=== PATIENT | male | born 1955 | race American Indian/Alaskan Native ===

== ENCOUNTER 2016-05-20 08:34 | Emergency (ER) | payer MEDICAID ==
[2016-05-20 08:45] VITALS: BP 135/100; PULSE 73; RESP 20; TEMP 96.8; O2SAT 95
[2016-05-20] MEDS ORDERED: Albuterol-Ipratrop 3 mg / 0.5 (3 ml) UD IH STA ×2 (08:53→09:36)
--- NOTE | 2016-05-20 08:55 | ED PDOC ---
HPI: CCC, URI, Sore Throat Time Seen by Provider: 05/20/16 08:44 Chief Complaint (Nursing): Cough, Cold, Congestion Chief Complaint (Provider): Cough, Cold, Congestion History Per: Patient History/Exam Limitations: no limitations Onset/Duration Of Symptoms: Days Current Symptoms Are (Timing): Still Present Location Of Pain: None Sick Contacts (Context): None Associated Symptoms: Cough, Sputum. denies: Fever Ear Symptoms: Bilateral: None Severity: Mild Additional Complaint(s): Patient is a 60 year old male with a history of asthma, presents to ED for SOB for 3 days. Patient reports wheezing with a cough productive of yellow sputum. Notes he recently ran out of his inhaler and prednisone. Denies fever, chest pain, palpations, back pain or chills. Of note patient is also reporting right knee pain, atraumatic with no swelling. Past Medical History Reviewed: Historical Data, Nursing Documentation, Vital Signs Vital Signs: Last Vital Signs Temp 96.8 F L 05/20/16 08:38 Pulse 73 05/20/16 08:38 Resp 20 05/20/16 09:40 BP 135/100 H 05/20/16 08:38 Pulse Ox 95 05/20/16 08:57 - Medical History PMH: Asthma, CVA - Surgical History Surgical History: No Surg Hx - Family History Family History: States: No Known Family Hx - Living Arrangements Living Arrangements: With Family - Home Medications Home Medications: Ambulatory Orders Medication Instructions Recorded Albuterol HFA [Ventolin HFA 90 2 puff IH Q4H #1 puff 05/20/16 mcg/actuation (8 g)] Azithromycin [Zithromax] 250 mg PO DAILY #6 tab 05/20/16 predniSONE [predniSONE Tab] 10 mg PO TID #15 tab 05/20/16 traMADol [Ultram] 50 mg PO Q8 #10 tab 05/20/16 - Allergies Allergies/Adverse Reactions: Allergies Allergy/AdvReac Type Severity Reaction Status Date / Time No Known Allergies Allergy Verified 05/20/16 09:33 Review of Systems ROS Statement: Except As Marked, All Systems Reviewed And Found Negative Constitutional: Negative for: Fever, Chills ENT: Negative for: Ear Pain, Throat Pain Cardiovascular: Negative for: Chest Pain, Palpitations Respiratory: Positive for: Cough, Shortness of Breath, Wheezing Gastrointestinal: Negative for: Vomiting Musculoskeletal: Negative for: Neck Pain Skin: Negative for: Rash Physical Exam - Reviewed Nursing Documentation Reviewed: Yes Vital Signs Reviewed: Yes - Physical Exam Appears: Positive for: Non-toxic, No Acute Distress Skin: Positive for: Normal Color, Warm. Negative for: Rash Eye Exam: Positive for: Normal appearance ENT: Negative for: Nasal Congestion, Pharyngeal Erythema, Tonsillar Exudate Neck: Positive for: Normal, Painless ROM, Supple Cardiovascular/Chest: Positive for: Regular Rate, Rhythm, Chest Non Tender. Negative for: Murmur Respiratory: Positive for: Rhonchi (scattered), Wheezing (mild expiratory ). Negative for: Decreased Breath Sounds, Accessory Muscle Use, Respiratory Distress Back: Positive for: Normal Inspection Extremity: Positive for: Normal ROM. Negative for: Pedal Edema, Calf Tenderness Neurologic/Psych: Positive for: Alert, Oriented - ECG O2 Sat by Pulse Oximetry: 95 (RA) Pulse Ox Interpretation: Normal Medical Decision Making Medical Decision Making: Time: 0845 Initial impression: Asthma exacerbation vs viral illness Initial plan: -- CXR -- Duoneb and Prednisone -- Knee Xray Scribe Attestation: Documented by Zoë Agudelo acting as a scribe for Wojciech Shah MD MD Scribe Attestation: All medical record entries made by the Scribe were at my direction and personally dictated by me. I have reviewed the chart and agree that the record accurately reflects my personal performance of the history, physical exam, medical decision making, and the department course for this patient. I have also personally directed, reviewed, and agree with the discharge instructions and disposition. Disposition - Clinical Impression Clinical Impression: Bronchitis, Asthma - Patient ED Disposition Is Patient to be Admitted: No - Disposition Referrals: [facility] [Outside] Disposition: Routine/Home Disposition Time: 10:44 Condition: FAIR Prescriptions: traMADol [Ultram] 50 mg PO Q8 #10 tab Albuterol HFA [Ventolin HFA 90 mcg/actuation (8 g)] 2 puff IH Q4H #1 puff Azithromycin [Zithromax] 250 mg PO DAILY #6 tab predniSONE [predniSONE Tab] 10 mg PO TID #15 tab Instructions: Acute Bronchitis (ED), Asthma (ED)
[2016-05-20] MEDS ORDERED: Albuterol-Ipratrop 3 mg / 0.5 (3 ml) UD ONE (09:36)
--- NOTE | 2016-05-20 11:23 | RAD ---
HISTORY: Cough. Portable study 09:01. COMPARISON: No prior. FINDINGS: LUNGS: No active pulmonary disease. PLEURA: No significant pleural effusion identified, no pneumothorax apparent. CARDIOVASCULAR: No radiographic findings to suggest acute or significant cardiovascular disease. OSSEOUS STRUCTURES: No significant abnormalities. VISUALIZED UPPER ABDOMEN: Normal. OTHER FINDINGS: None. IMPRESSION: No active disease.
--- NOTE | 2016-05-20 11:24 | RAD ---
PROCEDURE: Right Knee Radiographs. HISTORY: pain COMPARISON: None. FINDINGS: BONES: Normal. No fracture. JOINTS: Normal. No osteoarthritis. JOINT EFFUSION: None. OTHER FINDINGS: None. IMPRESSION: No acute findings related to/accounting for the clinical presentation.
== END 2016-05-20 11:25 | disposition home or self-care (01) ==
LOC: H.ER 08:34
DX: J45.909 Unspecified asthma, uncomplicated (principal); J20.9 Acute bronchitis, unspecified; M25.561 Pain in right knee; R05 Cough; Z86.73 Personal history of transient ischemic attack (TIA), and cerebral infarction without residual deficits

== ENCOUNTER 2016-05-27 13:47 | Inpatient (IN) | payer MEDICAID ==
[2016-05-27] MEDS ORDERED: Albuterol-Ipratrop 3 mg / 0.5 (3 ml) UD INH STA (14:19)
[2016-05-27] MEDS ORDERED: Albuterol-Ipratrop 3 mg / 0.5 (3 ml) UD ONE (14:37)
--- NOTE | 2016-05-27 15:19 | ED PDOC ---
Past Medical History Vital Signs: Last Vital Signs Temp 100 F H 05/27/16 14:01 Pulse 77 05/27/16 14:01 Resp 20 05/27/16 14:01 BP 142/71 05/27/16 14:01 Pulse Ox 96 05/27/16 14:01 - Medical History PMH: Anxiety, Asthma, CVA, HTN, Hypercholesterolemia - Home Medications Home Medications: Ambulatory Orders Medication Instructions Recorded Albuterol HFA [Ventolin HFA 90 2 puff IH Q4H #1 puff 05/20/16 mcg/actuation (8 g)] Azithromycin [Zithromax] 250 mg PO DAILY #6 tab 05/20/16 predniSONE [predniSONE Tab] 10 mg PO TID #15 tab 05/20/16 traMADol [Ultram] 50 mg PO Q8 #10 tab 05/20/16 - Allergies Allergies/Adverse Reactions: Allergies Allergy/AdvReac Type Severity Reaction Status Date / Time No Known Allergies Allergy Verified 05/27/16 14:11 - ECG O2 Sat by Pulse Oximetry: 96
--- NOTE | 2016-05-27 16:04 | ED PDOC ---
HPI: CCC, URI, Sore Throat Time Seen by Provider: 05/27/16 13:55 Chief Complaint (Nursing): Cough, Cold, Congestion Chief Complaint (Provider): Cough, Cold, Congestion History Per: Patient History/Exam Limitations: no limitations Onset/Duration Of Symptoms: Days (a few days) Current Symptoms Are (Timing): Still Present Associated Symptoms: Fever (subjective), Cough, Sputum (yellow), Nasal Congestion, Other (Chest Tightness) Additional Complaint(s): 14:02 Immanuel Azul, 60 year old male with a past medical history of anxiety, asthma, HTN, and HLD, presents to the ED with complaints of a cough, productive with yellow sputum, that he has experienced over the past few days. Associated subjective fever, nasal congestion, and feelings of chest tightness also reported, further described as if he was being "smothered". Patient presents to the ED as he feels his symptoms have worsened since onset. Patient has used his usual 3 medically prescribed inhalers without improvement. He denies any abdomen pain, diarrhea, vomiting, chest pain, shortness of breath, or throat pain. The patient admits to a prior history of crack/cocaine/heroin abuse but has not used in the past 2 months. Patient also states that he has stopped cigarette use for the past 2 weeks, after smoking 2-3 cigarettes per day for about 20 years. Patient has not received this year's influenza vaccination. Past Medical History Reviewed: Historical Data, Nursing Documentation, Vital Signs Vital Signs: Last Vital Signs Temp 98.9 F 05/27/16 17:18 Pulse 77 05/27/16 14:01 Resp 20 05/27/16 14:01 BP 142/71 05/27/16 14:01 Pulse Ox 96 05/27/16 17:00 - Medical History PMH: Anxiety, Asthma, CVA, HTN, Hypercholesterolemia, Hyperlipidemia Other PMH: Treated for Cocaine/Crack/Heroin Addiction - Surgical History Surgical History: Denies: Coronary Stent Other surgeries: Cataract Surgery, Two cardiac catheterizations, Bronchoscopy - Family History Family History: States: MS (Mother), CAD (Mother), Other (Aunt with CHF) - Living Arrangements Living Arrangements: Other (Intermediate) - Social History Current smoker - smoking cessation education provided: Yes (Recently stopped smoking for the past 2 weeks) Drugs: Cocaine, Opiates (Heroin) - Immunization History Hx Influenza Vaccination: No - Home Medications Home Medications: Ambulatory Orders Medication Instructions Recorded Albuterol HFA [Ventolin HFA 90 2 puff IH Q4H #1 puff 05/20/16 mcg/actuation (8 g)] - Allergies Allergies/Adverse Reactions: Allergies Allergy/AdvReac Type Severity Reaction Status Date / Time No Known Allergies Allergy Verified 05/27/16 14:11 Review of Systems Constitutional: Positive for: Fever (Subjective) ENT: Positive for: Nose Congestion. Negative for: Throat Pain Cardiovascular: Positive for: Other (Chest Tightness). Negative for: Chest Pain Respiratory: Positive for: Cough, Sputum (Yellow). Negative for: Shortness of Breath Gastrointestinal: Negative for: Vomiting, Abdominal Pain, Diarrhea Psych: Positive for: Anxiety Physical Exam - Reviewed Nursing Documentation Reviewed: Yes Vital Signs Reviewed: Yes - Physical Exam Appears: Positive for: Non-toxic, No Acute Distress Head Exam: Positive for: ATRAUMATIC, NORMOCEPHALIC Skin: Positive for: Normal Color, Warm, Dry Eye Exam: Positive for: Normal appearance, EOMI, PERRL ENT: Positive for: Normal ENT Inspection. Negative for: Pharyngeal Erythema, Tonsillar Exudate, Tonsillar Swelling Neck: Positive for: Normal, Supple Cardiovascular/Chest: Positive for: Regular Rate, Rhythm. Negative for: Murmur Respiratory: Positive for: Wheezing (Bilateral expiratory wheezing), Other ( Transmitted Nasal Breath Sounds over Bronchial Area). Negative for: Respiratory Distress Neurologic/Psych: Positive for: Alert, Oriented - Laboratory Results Result Diagrams: 05/27/16 16:04 05/27/16 16:04 - ECG O2 Sat by Pulse Oximetry: 96 (RA) Pulse Ox Interpretation: Normal Medical Decision Making Medical Decision Makin:02 Initial Impression Cough, URI Initial Plan: * ECG * B-type Natriuretic Peptide * Comp Metabolic Panel * Troponin I Stat * CBC with Differential * Partial Thromboplastin Time * Prothrombin Time (Coag) * CXR two views (PA/LAT) RAD * Influenza A B Stat * Blood Culture Stat * Finger Stick [Glucose, Blood, POC] * Albuterol/Ipratropium 3 mL INH * Nebulizer Treatment * Peak Flow Pre/Post Tx * Methylpredisolone 125 mg IM * Acetaminophen 650 mg PO * Reevaluation Pt noted to have Hgb 7.3. when asked if symptomatic, Pt does report feeling lightheaded and weak lately, which he attributed to being sick. No rectal bleeding that he knows of. Stool guaiac done, no blood noted on glove. WBC 12.9 Potassium resulted 5.3, however specimen hemolized BUN elevated at 26 CXR: No active pulmonary disease. COPD. Case discussed with ED MD, Dr. Perez, who agreed with observation. Call placed and case discussed with med -[facility] physician, Dr. Moreno, who agreed with admission at this time. Scribe Attestation: Documented by Yuliana Ridley, training under Megan Ernandez, acting as a scribe for Margie Rodriguez PA-C. Provider Scribe Attestation: All medical record entries made by the Scribe were at my direction and personally dictated by me. I have reviewed the chart and agree that the record accurately reflects my personal performance of the history, physical exam, medical decision making, and the department course for this patient. I have also personally directed, reviewed, and agree with the discharge instructions and disposition. Disposition - Clinical Impression Clinical Impression: Anemia, Cough, Fever - Patient ED Disposition Is Patient to be Admitted: Yes - Disposition Disposition Time: 17:46 Condition: STABLE - POA Present On Arrival: None
[2016-05-27 16:15] LABS: BASO # 0.1 K/uL (0.0-0.2); BASO % 0.8 % (0.0-2.0); EOS # 0.5 K/uL (0.0-0.7); EOS % 3.7 % (0.0-4.0); HEMATOCRIT 24.1 % (35.0-51.0); LYMPH # 4.4 K/uL (1.0-4.3); LYMPH % 34.2 % (20.0-40.0); MEAN CELL VOLUME 70.2 fl (80.0-94.0); MEAN CORPUSCULAR HEMOGLOBIN 21.3 pg (27.0-31.0); MEAN CORPUSCULAR HGB CONC 30.3 g/dL (33.0-37.0); MEAN PLATELET VOLUME 7.7 fl (7.2-11.7); MONO # 1.2 K/uL (0.0-0.8); MONO % 8.9 % (0.0-10.0); NEUT # 6.8 K/uL (1.8-7.0); NEUT % 52.4 % (50.0-75.0); NRBC % 0.1 % (0.0-0.0); RED CELL DISTRIBUTION WIDTH 24.9 % (11.5-14.5); WHITE BLOOD COUNT 12.9 K/uL (4.8-10.8)
[2016-05-27 16:24] LABS: ALB/GLOB RATIO 0.9 (1.0-2.1); ALKALINE PHOSPHATASE 45 U/L (38-126); ALT/SGPT 35 U/L (21-72); AST/SGOT 44 U/L (17-59); BILIRUBIN,TOTAL 0.8 mg/dl (0.2-1.3); BLOOD UREA NITROGEN 26 mg/dl (9-20); CALCIUM 8.7 mg/dL (8.4-10.2); CARBON DIOXIDE 28 mmol/L (22-30); CHLORIDE 101 mmol/L (98-107); GFR AFRICAN-AMERICAN > 60; GLUCOSE,RANDOM 86 mg/dL (75-110); SODIUM 142 mmol/l (132-148); TOTAL PROTEIN 7.2 G/DL (6.3-8.2)
[2016-05-27 16:32] LABS: POTASSIUM 5.3 MMOL/L (3.6-5.0)
--- NOTE | 2016-05-27 16:59 | RAD ---
HISTORY: Fever and cough COMPARISON: 05/20/2016 TECHNIQUE: Chest PA and lateral FINDINGS: LUNGS: The lungs are hyperinflated and there is peribronchial thickening with chronic changes in both lungs. There is linear scarring in the left mid lung and right lower lobe. There is no focal consolidation. PLEURA: No significant pleural effusion identified. No pneumothorax apparent. CARDIOVASCULAR: The heart is normal in size. Atherosclerotic aortic arch calcifications are present. OSSEOUS STRUCTURES: No significant abnormalities. VISUALIZED UPPER ABDOMEN: Normal. OTHER FINDINGS: None. IMPRESSION: No active pulmonary disease. COPD.
[2016-05-27] MEDS ORDERED: Azithromycin 500 MG in Sodium Chloride 0.9% 250 ML IVPB STA (17:36)
[2016-05-27] MEDS ORDERED: Sodium Chloride 0.9% 1,000 ML IV STA (17:43)
[2016-05-27 19:08] LABS: IRON 16 ug/dL (49-181)
[2016-05-27] MEDS ORDERED: cefTRIAXone (Rocephin) 1 gm Inj ONE (20:00)
[2016-05-27 22:36] LABS: PARTIAL THROMBOPLASTIN TIME 29.1 SECONDS (23.3-32.5)
[2016-05-28] MEDS: methylPREDNISolone 60 MG in Sodium Chloride 0.9% 50 ML IV SCH ×4 (03:24→23:31)
[2016-05-28 07:37] LABS: HEMATOCRIT 26.3 % (35.0-51.0); MEAN CELL VOLUME 69.3 fl (80.0-94.0); MEAN CORPUSCULAR HEMOGLOBIN 21.5 pg (27.0-31.0); RED CELL DISTRIBUTION WIDTH 24.8 % (11.5-14.5); WHITE BLOOD COUNT 11.3 K/uL (4.8-10.8)
--- NOTE | 2016-05-28 08:29 | CP.PCM.CON ---
History of Present Illness - History of Present Illness History of Present Illness: Asked by Dr. Moreno for a GI consultation on this patient. 60 year old male with history of polysubstance abuse, COPD, anxiety, HTN who presents to hospital with complaint of productive cough for the past 3 days. He describes cough and chest "tightness" along with bringing up yellow sputum during this time period. GI called for evaluation of anemia noted on admission bloodwork. He endorses history of chronic anemia, previously used to take iron supplementation. He admits to recent lightheadedness/dizziness but denies abdominal pain, nausea, vomiting, diarrhea, melena, or weight loss. No prior endoscopic evaluation. Social history: smokes 1/4 PPD cigarettes, social ETOH use, prior cocaine and illicit drug use Family history: reviewed, patient denies Review of Systems - Review of Systems Review of Systems: - All other comprehensive 12 point review of systems performed, negative - Cardiovascular Cardiovascular: absent: Acrocyanosis, Chest Pain, Chest Pain at Rest, Chest Pain with Activity, Claudication, Diaphoresis, Dyspnea, Dyspnea on Exertion, Edema, Irregular Heart Rhythm, Pain Radiating to Arm/Neck/Jaw, Leg Edema, Leg Ulcers, Lightheadedness, Orthopnea, Palpitations, Paroxysmal Nocturnal Dyspnea, Pedal Edema, Radiating Pain, Rapid Heart Rate, Slow Heart Rate, Syncope, Other - Respiratory Respiratory: Cough, Excessive Mucous Production - Gastrointestinal Gastrointestinal: absent: Abdominal Pain, Belching, Bloating, Change in Bowel Habits, Change in Stool Character, Coffee Ground Emesis, Constipation, Cramping , Diarrhea, Dyspepsia, Dysphagia, Early Satiety, Excessive Flatus, Fecal Incontinence, Heartburn, Hematemesis, Hematochezia, Loose Stools, Melena, Nausea , Odynophagia, Temesmus, Vomiting, Other - Musculoskeletal Musculoskeletal: absent: Abnormal Gait, Arthralgias, Atrophy, Back Pain, Deformity, Joint Swelling, Limited Range of Motion, Loss of Height, Muscle Cramps, Muscle Weakness, Myalgias, Neck Pain, Numbness, Radiating Pain into Limb , Stiffness, Tingling, Other - Neurological Neurological: Dizziness Past Patient History - Past Medical History & Family History Past Medical History?: Yes - Past Social History Smoking Status: Light Smoker < 10 Cigarettes Daily - CARDIAC Hx Cardiac Disorders: Yes Hx Hypercholesterolemia: Yes Hx Hypertension: Yes - PULMONARY Hx Respiratory Disorders: Yes Hx Asthma: Yes - NEUROLOGICAL Hx Dizziness: Yes - RENAL Hx Chronic Kidney Disease: No - ENDOCRINE/METABOLIC Hx Endocrine Disorders: No - HEMATOLOGICAL/ONCOLOGICAL Hx Anemia: Yes - MUSCULOSKELETAL/RHEUMATOLOGICAL Hx Falls: No - PSYCHIATRIC Hx Psychophysiologic Disorder: Yes Hx Anxiety: Yes - SURGICAL HISTORY Hx Cataract Extraction: Yes Hx Cardiac Catheterization: Yes Hx Coronary Stent: No - ANESTHESIA Hx Anesthesia: Yes Hx Anesthesia Reactions: No Meds Allergies/Adverse Reactions: Allergies Allergy/AdvReac Type Severity Reaction Status Date / Time No Known Allergies Allergy Verified 05/27/16 14:11 - Medications Medications: Current Medications Acetaminophen (Tylenol 325mg Tab) 650 mg PO Q6 PRN PRN Reason: Fever >100.4 F Albuterol (Ventolin Hfa 90 Mcg/Actuation (8 G)) 2 puff IH Q4H PRN PRN Reason: Shortness of Breath Amlodipine Besylate (Norvasc) 5 mg PO DAILY [facility] Last Admin: 05/28/16 01:21 Dose: 5 mg Bisacodyl (Dulcolax) 5 mg PO ONCE ONE Stop: 05/28/16 16:01 Enoxaparin Sodium (Lovenox) 40 mg SC DAILY [facility] PRN Reason: Protocol Ceftriaxone Sodium 1 gm/ (Sodium Chloride) 100 mls @ 100 mls/hr IVPB DAILY [facility] Last Admin: 05/27/16 20:25 Dose: 100 mls/hr Azithromycin 500 mg/ Sodium (Chloride) 250 mls @ 250 mls/hr IVPB DAILY [facility] Methylprednisolone 60 mg/ (Sodium Chloride) 50 mls @ 100 mls/hr IV Q6 [facility] Last Admin: 05/28/16 03:24 Dose: 100 mls/hr Polyethylene Glycol/Electrolytes (Golytely) 4,000 ml PO ONCE ONE Stop: 05/28/16 14:01 Valsartan (Diovan) 80 mg PO DAILY [facility] Physical Exam - Constitutional Appears: Non-toxic, No Acute Distress - Head Exam Head Exam: NORMAL INSPECTION - Eye Exam Eye Exam: EOMI, Normal appearance - ENT Exam ENT Exam: Mucous Membranes Moist - Respiratory Exam Respiratory Exam: Wheezes Additional comments: inspiratory b/l lung [place]عر[place] - Cardiovascular Exam Cardiovascular Exam: REGULAR RHYTHM, +S1, +S2 - GI/Abdominal Exam GI & Abdominal Exam: Normal Bowel Sounds, Soft Additional comments: non tender to palpation in four quadrants no palpable hepato/splenomegaly - Extremities Exam Extremities exam: Positive for: pedal edema Additional comments: trace b/l pedal edema present - Neurological Exam Neurological exam: Alert, CN II-XII Intact, Normal Gait, Oriented x3, Reflexes Normal - Psychiatric Exam Psychiatric exam: Normal Affect, Normal Mood - Skin Skin Exam: Dry, Intact, Normal Color, Warm Results - Vital Signs Recent Vital Signs: Last Vital Signs Temp 97.6 F 05/28/16 08:04 Pulse 87 05/28/16 08:04 Resp 18 05/28/16 08:04 BP 169/76 H 05/28/16 08:04 Pulse Ox 97 05/28/16 08:04 - Labs Result Diagrams: 05/28/16 05:25 05/27/16 16:04 Labs: Laboratory Results - last 24 hr 05/27/16 05/28/16 22:05 05:25 WBC 11.3 H RBC 3.80 L Hgb 8.2 L Hct 26.3 L MCV 69.3 L MCH 21.5 L MCHC 31.0 L RDW 24.8 H Plt Count 335 PT 10.9 INR 1.05 APTT 29.1 Assessment & Plan - Assessment and Plan (Free Text) Assessment: History of polysubstance abuse HTN Productive cough, COPD exacerbation Iron deficiency microcytic anemia Plan: - Clear liquid diet as tolerated - H/H stable, continue to monitor. Obtain stool occult blood. - Continue with antibiotic therapy as per medical team - Given microcytic iron deficiency anemia in patient with ongoing history of cigarette smoking and without any prior endoscopic evaluation, will plan for EGD /colonoscopy examinations tomorrow to rule out underlying malignancy. Golytely bowel preparation today, NPO after midnight. - Further management pending results of endoscopic evaluation
[2016-05-28] MEDS ORDERED: cefTRIAXone (Rocephin) 2 gm Inj IVPB SCH (09:00)
[2016-05-28] MEDS: Azithromycin 500 MG in Sodium Chloride 0.9% 250 ML IVPB SCH (10:36)
--- NOTE | 2016-05-28 11:06 | HP ---
CHIEF COMPLAINT: Cough, cold, and congestion. HISTORY OF PRESENT ILLNESS: This is a 60-year-old male, known case of hypertension, asthma, anxiety, hyperlipidemia who was having cough with productive sputum, which did not improve with patient's inh ángel, so the patient was brought to Emergency Room where after workup, the patient was found to be a nemic and was admitted for further management. REVIEW OF SYSTEMS: Positive for cough, cold, congestion, generalized weakness, fever, malaise. Revi ew of system otherwise is negative for headache, dizziness, syncope, loss of consciousness, chest sandy n, nausea, vomiting, diarrhea, constipation, any new joint or extremity pain. Review of systems of a ll other organ systems is unremarkable. PAST MEDICAL HISTORY: Significant for hypertension, elevated cholesterol, anxiety, asthma. PAST SURGICAL HISTORY: Unremarkable. PERSONAL HISTORY: The patient has history of drug abuse and alcohol abuse and smoking. in the past, but recently patient has quit all those. FAMILY HISTORY: Significant for coronary artery disease. MEDICATIONS: The patient is on inhalation treatment ____ . ALLERGIES: The patient is not allergic to any medication. PHYSICAL EXAMINATION: GENERAL: Well-built, well-nourished 60-year-old male in no acute distress. VITAL SIGNS: Temperature 97.6, pulse 72, respirations 20, blood pressure 172/87. HEENT: Pupils reacting to light. The patient is clear pale conjunctivae. No JVD, no thyromegaly, n o lymphadenopathy, no nystagmus. Normocephalic, atraumatic skull. HEART: S1, S2 normal, regular. No significant murmur, gallop or rub is heard. LUNGS: Shows good bilateral air entry. No rales or rhonchi anteriorly. The patient does show signs of prolonged expiration and occasional palpitations posteriorly. ABDOMEN: Soft, nontender, no organomegaly, no fluid. Bowel sounds are plus. EXTREMITIES: No edema, no calf swelling, no tenderness, no acute ischemia. CENTRAL NERVOUS SYSTEM: Essentially unchanged and there is no sign of any acute gross focal motor or sensory neurological deficit. DIAGNOSTIC DATA: Available diagnostic data reviewed. Telemetry monitoring does not reveal significa nt arrhythmias. WBC 12.9, hemoglobin 7.3, hematocrit 24.1, platelets 286, ____ count is 2.6. INR a nd PT unremarkable. Sodium 142, potassium ____ , chloride 101, bicarb 28, BUN 26, creatinine 1.0 and ____ is 16. ____ 321, saturation is 5%. Vitamin B12 level is 704. Chest x-ray is clear. EKG does not reveal any acute ST-T changes. ADMITTING IMPRESSION: Chronic obstructive pulmonary disease with acute exacerbation, severe anemia, hypertension, elevated cholesterol by history. PLAN: As ordered. Case and plan discussed with patient. Hieu Moreno MD cc: [id number] TT: 05/28/2016 11:06:06 an
--- NOTE | 2016-05-28 11:24 | CP.PCM.CON ---
History of Present Illness - History of Present Illness History of Present Illness: 60 year old male with history of polysubstance abuse, tobacco abuse, COPD, admitted with cough, shortness of breath, found to be anemic. The patient denies abnormal bleeding and bruising. He had a colonoscopy 2 years ago but is unsure what the results are. He denies fevers and chills but notes the long term he stays at has a lot of sick people. Past medical history: polysubstance abuse, tobacco abuse, COPD Past surgical history: None Family history: Denies hematologic and oncologic problems Social history: 1/2ppd, denies alcohol use, smokes crack and snorts heroin Allergies: NKA Review of systems: All remaining review of systems including HEENT, cardiovascular, respiratory, gastrointestinal, genitourinary, musculoskeletal, dermatologic, neurologic, and psychiatric are negative unless mentioned in the HPI. Past Patient History - Past Medical History & Family History Past Medical History?: Yes - Past Social History Smoking Status: Light Smoker < 10 Cigarettes Daily - CARDIAC Hx Cardiac Disorders: Yes Hx Hypercholesterolemia: Yes Hx Hypertension: Yes - PULMONARY Hx Respiratory Disorders: Yes Hx Asthma: Yes - NEUROLOGICAL Hx Dizziness: Yes - RENAL Hx Chronic Kidney Disease: No - ENDOCRINE/METABOLIC Hx Endocrine Disorders: No - HEMATOLOGICAL/ONCOLOGICAL Hx Anemia: Yes - MUSCULOSKELETAL/RHEUMATOLOGICAL Hx Falls: No - PSYCHIATRIC Hx Psychophysiologic Disorder: Yes Hx Anxiety: Yes - SURGICAL HISTORY Hx Cataract Extraction: Yes Hx Cardiac Catheterization: Yes Hx Coronary Stent: No - ANESTHESIA Hx Anesthesia: Yes Hx Anesthesia Reactions: No Meds Allergies/Adverse Reactions: Allergies Allergy/AdvReac Type Severity Reaction Status Date / Time No Known Allergies Allergy Verified 05/27/16 14:11 - Medications Medications: Current Medications Acetaminophen (Tylenol 325mg Tab) 650 mg PO Q6 PRN PRN Reason: Fever >100.4 F Albuterol (Ventolin Hfa 90 Mcg/Actuation (8 G)) 2 puff IH Q4H PRN PRN Reason: Shortness of Breath Amlodipine Besylate (Norvasc) 5 mg PO DAILY [facility] Last Admin: 05/28/16 09:22 Dose: 5 mg Bisacodyl (Dulcolax) 5 mg PO ONCE ONE Stop: 05/28/16 16:01 Enoxaparin Sodium (Lovenox) 40 mg SC DAILY [facility] PRN Reason: Protocol Ceftriaxone Sodium 1 gm/ (Sodium Chloride) 100 mls @ 100 mls/hr IVPB DAILY [facility] Last Admin: 05/27/16 20:25 Dose: 100 mls/hr Azithromycin 500 mg/ Sodium (Chloride) 250 mls @ 250 mls/hr IVPB DAILY [facility] Last Admin: 05/28/16 10:36 Dose: 250 mls/hr Methylprednisolone 60 mg/ (Sodium Chloride) 50 mls @ 100 mls/hr IV Q6 [facility] Last Admin: 05/28/16 09:23 Dose: 100 mls/hr Iron Sucrose 200 mg/ Sodium (Chloride) 110 mls @ 110 mls/hr IVPB DAILY [facility] Stop: 06/02/16 11:31 Polyethylene Glycol/Electrolytes (Golytely) 4,000 ml PO ONCE ONE Stop: 05/28/16 14:01 Valsartan (Diovan) 80 mg PO DAILY [facility] Last Admin: 05/28/16 09:21 Dose: 80 mg Physical Exam - Head Exam Head Exam: ATRAUMATIC - Eye Exam Eye Exam: Normal appearance - ENT Exam ENT Exam: Mucous Membranes Dry - Respiratory Exam Respiratory Exam: NORMAL BREATHING PATTERN - Cardiovascular Exam Cardiovascular Exam: +S1, +S2 - GI/Abdominal Exam GI & Abdominal Exam: Normal Bowel Sounds - Extremities Exam Extremities exam: Positive for: normal inspection - Neurological Exam Neurological exam: Oriented x3 - Psychiatric Exam Psychiatric exam: Normal Affect, Normal Mood - Skin Skin Exam: Warm Results - Vital Signs Recent Vital Signs: Last Vital Signs Temp 97.6 F 05/28/16 08:04 Pulse 87 05/28/16 09:22 Resp 18 05/28/16 08:04 BP 169/76 H 05/28/16 09:22 Pulse Ox 97 05/28/16 08:04 - Labs Result Diagrams: 05/28/16 05:25 05/27/16 16:04 Labs: Laboratory Results - last 24 hr 05/27/16 05/28/16 22:05 05:25 WBC 11.3 H RBC 3.80 L Hgb 8.2 L Hct 26.3 L MCV 69.3 L MCH 21.5 L MCHC 31.0 L RDW 24.8 H Plt Count 335 PT 10.9 INR 1.05 APTT 29.1 Assessment & Plan (1) Anemia Assessment and Plan: iron deficiency, will start Venofer GI evaluation for endoscopy Status: Acute (2) Tobacco abuse Assessment and Plan: smoking cessation discussed at length Thank you for this interesting consult. Status: Acute
[2016-05-28] MEDS: Enoxaparin 40 mg Syringe SC SCH (12:36)
[2016-05-28] MEDS ORDERED: Peg-Electrolyte Oral Soln 4L (Golytely) PO ONE (14:00)
[2016-05-28] MEDS ORDERED: Bisacodyl 5mg EC Tab PO ONE (16:00)
[2016-05-28] MEDS: Albuterol-Ipratrop 3 mg / 0.5 (3 ml) UD INH SCH ×2 (16:43→19:29)
[2016-05-29] MEDS: Albuterol HFA 90 mcg/actuation (8 g) IH PRN ×2 (00:08→11:21)
[2016-05-29] MEDS: Albuterol-Ipratrop 3 mg / 0.5 (3 ml) UD INH SCH ×4 (01:27→19:41)
[2016-05-29] MEDS: methylPREDNISolone 60 MG in Sodium Chloride 0.9% 50 ML IV SCH ×4 (03:15→21:38)
[2016-05-29 07:49] LABS: HEMATOCRIT 25.6 % (35.0-51.0); MEAN CORPUSCULAR HEMOGLOBIN 20.7 pg (27.0-31.0); RED CELL DISTRIBUTION WIDTH 24.4 % (11.5-14.5)
[2016-05-29 07:53] LABS: ALB/GLOB RATIO 0.9 (1.0-2.1); ALKALINE PHOSPHATASE 54 U/L (38-126); ALT/SGPT 25 U/L (21-72); AST/SGOT 23 U/L (17-59); BILIRUBIN,TOTAL 0.3 mg/dl (0.2-1.3); BLOOD UREA NITROGEN 25 mg/dl (9-20); CALCIUM 8.7 mg/dL (8.4-10.2); CARBON DIOXIDE 29 mmol/L (22-30); CHLORIDE 102 mmol/L (98-107); GFR AFRICAN-AMERICAN > 60; GLUCOSE,RANDOM 124 mg/dL (75-110); POTASSIUM 3.7 MMOL/L (3.6-5.0); SODIUM 143 mmol/l (132-148); TOTAL PROTEIN 6.7 G/DL (6.3-8.2)
--- NOTE | 2016-05-29 07:58 | PQF GENQUE ---
This form is a permanent part of the medical record 05/29/16 , Please clarify the type of asthma along with it's acuity. See physician response below. Documentation of a history of asthma .Patient presents with fever, productive cough, chest tightness, congestion and wheezing. CXR no active disease. Treated with Solumedrol, Duonebs, IVAB and Ventolin Hfa. Diagnoses include COPD exacerbation and Anemia. Clarification of your documentation is requested to better reflect the severity of illness and intensity of treatment of your patient. PHYSICIAN'S RESPONSE 1. Please clarify type of asthma: [ ] Childhood [ ] Cough variant [ ] Exercise induced [ ] Late onset [ ] Mild intermittent [ ] Mild persistent [ ] Moderate persistent [ ] Severe persistent [ ] With bronchitis(please clarify acuity of bronchitis) [ ] With chronic lung disease (please document specific chronic lung disease ) [ ] Other (please specify) [ ] Unable to determine [ ] Unknown 2. Please clarify acuity of asthma: [ ] Uncomplicated [ ] With exacerbation(acute) [ ] With status asthmaticus [ ] Other (please specify) [ ] Unable to determine [ ] Unknown Based on your medical judgment of the clinical indicators outlined above please clarify the following: [] Practitioner response [] If unable to determine, please check the box, sign and date. Present On Admission (POA) Indicator: [] Present at the time of admission [] Not present at the time of admission [] Clinically Undetermined In responding to this query, please exercise your independent professional judgment. The fact that a question is asked does not imply that any particular answer is desired or expected. Thank you for your clarification on this documentation. If you have any questions please call:[phone] Medical Records Dept * Thank you, Eryn Mcwilliams RN CDMP MTDD
[2016-05-29 08:09] LABS: WHITE BLOOD COUNT 24.4 K/uL (4.8-10.8)
[2016-05-29] MEDS ORDERED: Lactated Ringer's 500 ML IV ONE ×2 (09:30→13:38)
[2016-05-29] MEDS ORDERED: Propofol 10 mg/ml Inj (20 ML) ONE ×2 (09:32→13:37)
[2016-05-29] MEDS: Azithromycin 500 MG in Sodium Chloride 0.9% 250 ML IVPB SCH (10:10)
--- NOTE | 2016-05-29 10:51 | CARD ---
APPROVED REPORT EKG Measurement Heart [id number] OR [id number] <Conclusion> Normal sinus rhythm with sinus arrhythmia Left ventricular hypertrophy with QRS widening and repolarization abnormality Abnormal ECG
[2016-05-29] MEDS ORDERED: Etomidate 20 mg/10ml Inj IV ONE (13:37)
[2016-05-30] MEDS: Albuterol-Ipratrop 3 mg / 0.5 (3 ml) UD INH SCH ×5 (01:23→21:00)
[2016-05-30] MEDS: methylPREDNISolone 60 MG in Sodium Chloride 0.9% 50 ML IV SCH ×4 (03:18→22:00)
[2016-05-30 07:23] LABS: HEMATOCRIT 24.5 % (35.0-51.0); MEAN CORPUSCULAR HEMOGLOBIN 21.4 pg (27.0-31.0); RED CELL DISTRIBUTION WIDTH 24.5 % (11.5-14.5); WHITE BLOOD COUNT 19.6 K/uL (4.8-10.8)
[2016-05-30 07:51] LABS: ALB/GLOB RATIO 0.8 (1.0-2.1); ALKALINE PHOSPHATASE 49 U/L (38-126); ALT/SGPT 27 U/L (21-72); AST/SGOT 25 U/L (17-59); BILIRUBIN,TOTAL 0.2 mg/dl (0.2-1.3); BLOOD UREA NITROGEN 34 mg/dl (9-20); CALCIUM 8.8 mg/dL (8.4-10.2); CARBON DIOXIDE 27 mmol/L (22-30); CHLORIDE 104 mmol/L (98-107); GFR AFRICAN-AMERICAN > 60; GLUCOSE,RANDOM 133 mg/dL (75-110); POTASSIUM 3.9 MMOL/L (3.6-5.0); SODIUM 142 mmol/l (132-148); TOTAL PROTEIN 6.4 G/DL (6.3-8.2)
[2016-05-30] MEDS: Azithromycin 500 MG in Sodium Chloride 0.9% 250 ML IVPB SCH ×2 (09:31→10:47)
--- NOTE | 2016-05-30 10:21 | CP.PCM.PN ---
<Ladan Mcnally - Last Filed: 05/30/16 14:16> Subjective - Date & Time of Evaluation Date of Evaluation: 05/30/16 Time of Evaluation: 07:15 - Subjective Subjective: 60M seen and examined at bedside this morning with attending. He reports breathing has improved a little, but still some residual productive cough. Otherwise there are no acute complaints. Objective - Vital Signs/Intake and Output Vital Signs (last 24 hours): Temp Pulse Resp BP Pulse Ox 36.8 C 68 18 177/79 H 96 05/30/16 08:12 05/30/16 08:12 05/30/16 08:12 05/30/16 08:12 05/30/16 08:12 - Medications Medications: Current Medications Acetaminophen (Tylenol 325mg Tab) 650 mg PO Q6 PRN PRN Reason: Fever >100.4 F Albuterol (Ventolin Hfa 90 Mcg/Actuation (8 G)) 2 puff IH Q4H PRN PRN Reason: Shortness of Breath Last Admin: 05/29/16 11:21 Dose: 2 puff Albuterol/Ipratropium (Duoneb 3 Mg/0.5 Mg (3 Ml) Ud) 3 ml INH RQ6 [facility] Last Admin: 05/30/16 07:48 Dose: 3 ml Amlodipine Besylate (Norvasc) 10 mg PO DAILY [facility] Last Admin: 05/30/16 09:32 Dose: 10 mg Enoxaparin Sodium (Lovenox) 40 mg SC DAILY [facility] PRN Reason: Protocol Last Admin: 05/28/16 12:36 Dose: 40 mg Hydrochlorothiazide (Microzide) 12.5 mg PO DAILY [facility] Methylprednisolone 60 mg/ (Sodium Chloride) 50 mls @ 100 mls/hr IV Q6 [facility] Last Admin: 05/30/16 09:30 Dose: 50 mls/hr Iron Sucrose 200 mg/ Sodium (Chloride) 110 mls @ 110 mls/hr IVPB DAILY [facility] Stop: 06/02/16 11:31 Last Admin: 05/29/16 12:53 Dose: 110 mls/hr Levofloxacin/Dextrose (Levaquin 750mg) 750 mg in 150 mls @ 100 mls/hr IVPB DAILY [facility] Tiotropium [place] (Spiriva) 18 mcg INH DAILY [facility] Valsartan (Diovan) 80 mg PO DAILY [facility] Last Admin: 05/30/16 09:32 Dose: 80 mg - Labs Labs: 05/30/16 05:05 05/30/16 05:05 PT 10.9 SECONDS (9.6-11.2) 05/27/16 22:05 INR 1.05 (0.92-1.08) 05/27/16 22:05 APTT 29.1 SECONDS (23.3-32.5) 05/27/16 22:05 - Constitutional Appears: Well, Non-toxic, No Acute Distress - Head Exam Head Exam: ATRAUMATIC, NORMAL INSPECTION - Eye Exam Eye Exam: EOMI, Normal appearance - ENT Exam ENT Exam: Mucous Membranes Moist, Normal Exam - Neck Exam Neck Exam: Full ROM, Normal Inspection - Respiratory Exam Respiratory Exam: Prolonged Expiratory Phase, Rhonchi, Wheezes, NORMAL BREATHING PATTERN. absent: Rales - Cardiovascular Exam Cardiovascular Exam: REGULAR RHYTHM. absent: JVD - GI/Abdominal Exam GI & Abdominal Exam: Soft, Normal Bowel Sounds. absent: Tenderness - Extremities Exam Extremities Exam: Normal Capillary Refill, Normal Inspection. absent: Pedal Edema - Neurological Exam Neurological Exam: Alert, Awake, Oriented x3 - Psychiatric Exam Psychiatric exam: Normal Affect, Normal Mood. absent: Anxious - Skin Skin Exam: Normal Color, Warm Assessment and Plan (1) COPD (chronic obstructive pulmonary disease) Assessment & Plan: Patient with history of asthma, smoking, and now presenting with increased sputum production, shortness of breath, and chills most c/w CPOD exacerbation complicated by CAP. Steroids contributing to leukocytosis seen in lab results as patient remains afebrile. - Ventolin 2puffs, IH, Q4H PRN - DuoNebs, INH, Q6H - Spiriva 18mcg, INH, Daily - Methylprednisone 60mg, IV, Q6H - Levaquin 750mg, IV, Daily - Repeat CXR in AM Status: Acute (2) DVT prophylaxis Assessment & Plan: Lovenox 40mg, SC, Daily Status: Acute (3) Microcytic anemia Assessment & Plan: Asymptomatic, iron-deficiency anemia. This is likely chronic and due to dietary vs. absorption dysfunction (not supported by remaining labwork) and no support ofr an acute blood loss anemia. In addition, upper and lower endoscopy 05/29/16 only significant for gastritis. - GI consult (Dr Armendariz)appreciated: Colonoscopy- no stigmata of bleeding/ diverticulosis/internal hemorrhoids; Endoscopy- small hiatus, gastritis, bx - Heme/Onc Consult (Dr Heller) appreciated: Rec Venofer, daily - Venofer 200mg, IV, Daily Status: Acute (4) HTN (hypertension) Assessment & Plan: Not well-controlled currently, so hydrochlorothiazide was added. Given that BUN became elevated will monitor closely for continuation of Valsartan. - Valsartan 80mg, PO, Daily - Norvasc 10mg, PO, Daily - HCTZ 12.5mg, PO, Daily - Monitor BP Status: Chronic (5) Anxiety Assessment & Plan: Seems well-controlled at this time without medication. Status: Chronic (6) HLD (hyperlipidemia) Assessment & Plan: Not currently taking any statin. Patient to follow up for further evaluation. Status: Chronic (7) History of asthma Assessment & Plan: Although patient may have a history of asthma (unknown type) with his symptoms, smoking history, and CXR findings this is most consistent with a COPD exacerbation. Status: Chronic <Hieu Moreno - Last Filed: 06/09/16 18:15> Objective - Vital Signs/Intake and Output Vital Signs (last 24 hours): Temp Pulse Resp BP Pulse Ox 97.8 F 86 18 158/76 H 95 06/01/16 12:13 06/01/16 14:16 06/01/16 12:13 06/01/16 14:16 06/01/16 12:13 - Labs Labs: 05/31/16 05:25 05/31/16 05:25 PT 10.9 SECONDS (9.6-11.2) 05/27/16 22:05 INR 1.05 (0.92-1.08) 05/27/16 22:05 APTT 29.1 SECONDS (23.3-32.5) 05/27/16 22:05 Assessment and Plan - Assessment and Plan (Free Text) Assessment: Patient was personally seen and examined by me in rounds with residents. Available labs and diagnostic data reviewed. Case, Patient's condition and management plan discussed with residents in rounds. Agree with resident's documentation. Plan: As ordered. Hieu Moreno MD
--- NOTE | 2016-05-30 14:45 | PN ---
DATE: 05/29/2016 The patient seen and examined. Interim events noted. The patient remains in progressive care unit o n telemetry monitoring but no chest pain, shortness of breath. ____ chest pain, ____ shortness of br eath. PHYSICAL EXAMINATION: GENERAL: The patient is in no acute distress. VITAL SIGNS: Stable. HEART: S1, S2 normal, regular. LUNGS: Still has prolonged expiration and occasional rhonchi. ABDOMEN: Soft, nontender. EXTREMITIES: No edema, no calf swelling, no tenderness, no acute ischemia. CENTRAL NERVOUS SYSTEM: Essentially unchanged. DIAGNOSTIC DATA: Available diagnostic data reviewed. Overall, patient's general medical condition is slowly improving. Telemetry monitoring does not reve al significant arrhythmias or other neurological deficit. PLAN: As ordered. Hieu Moreno MD cc: [id number] TT: 05/29/2016 07:29:32 Confirmation # [id number] Dictation # [id number] tx 05/30/2016 13:45:01
[2016-05-30] MEDS: levoFLOXacin 750 mg in D5W 750 MG/150 ML BAG IVPB SCH (14:47)
[2016-05-30] MEDS: Tiotropium 18 mcg Cap For Inhalation INH SCH (16:46)
--- NOTE | 2016-05-30 19:51 | CP.PCM.PN ---
Subjective - Date & Time of Evaluation Date of Evaluation: 05/30/16 Time of Evaluation: 13:00 - Subjective Subjective: Patient seen at bedside. No complains. s/p EGD and colonoscopy yesterday with no mass lesions or stigmata of recent bleeding. Tolerating diet Objective - Vital Signs/Intake and Output Vital Signs (last 24 hours): Temp Pulse Resp BP Pulse Ox 98.1 F 90 18 169/69 H 93 L 05/30/16 17:00 05/30/16 17:00 05/30/16 17:00 05/30/16 17:00 05/30/16 17:00 Intake and Output: 05/30/16 05/31/16 18:59 06:59 Intake Total 50 Balance 50 - Medications Medications: Current Medications Acetaminophen (Tylenol 325mg Tab) 650 mg PO Q6 PRN PRN Reason: Fever >100.4 F Albuterol (Ventolin Hfa 90 Mcg/Actuation (8 G)) 2 puff IH Q4H PRN PRN Reason: Shortness of Breath Last Admin: 05/29/16 11:21 Dose: 2 puff Albuterol/Ipratropium (Duoneb 3 Mg/0.5 Mg (3 Ml) Ud) 3 ml INH RQ6 [facility] Last Admin: 05/30/16 13:49 Dose: Not Given Amlodipine Besylate (Norvasc) 10 mg PO DAILY [facility] Last Admin: 05/30/16 09:32 Dose: 10 mg Enoxaparin Sodium (Lovenox) 40 mg SC DAILY [facility] PRN Reason: Protocol Last Admin: 05/28/16 12:36 Dose: 40 mg Hydrochlorothiazide (Microzide) 12.5 mg PO DAILY [facility] Last Admin: 05/30/16 14:48 Dose: 12.5 mg Methylprednisolone 60 mg/ (Sodium Chloride) 50 mls @ 100 mls/hr IV Q6 [facility] Last Admin: 05/30/16 16:48 Dose: 50 mls/hr Iron Sucrose 200 mg/ Sodium (Chloride) 110 mls @ 110 mls/hr IVPB DAILY [facility] Stop: 06/02/16 11:31 Last Admin: 05/30/16 10:37 Dose: 110 mls/hr Levofloxacin/Dextrose (Levaquin 750mg) 750 mg in 150 mls @ 100 mls/hr IVPB DAILY [facility] Last Admin: 05/30/16 14:47 Dose: 100 mls/hr Tiotropium [place] (Spiriva) 18 mcg INH DAILY [facility] Last Admin: 05/30/16 16:46 Dose: 18 mcg Valsartan (Diovan) 80 mg PO DAILY [facility] Last Admin: 05/30/16 09:32 Dose: 80 mg - Labs Labs: 05/30/16 05:05 05/30/16 05:05 PT 10.9 SECONDS (9.6-11.2) 05/27/16 22:05 INR 1.05 (0.92-1.08) 05/27/16 22:05 APTT 29.1 SECONDS (23.3-32.5) 05/27/16 22:05 - Constitutional Appears: Well, Non-toxic, No Acute Distress - Head Exam Head Exam: ATRAUMATIC, NORMAL INSPECTION, NORMOCEPHALIC - Respiratory Exam Respiratory Exam: Clear to Ausculation Bilateral, NORMAL BREATHING PATTERN - Cardiovascular Exam Cardiovascular Exam: REGULAR RHYTHM, +S1, +S2. absent: Murmur - GI/Abdominal Exam GI & Abdominal Exam: Soft, Normal Bowel Sounds. absent: Tenderness - Extremities Exam Extremities Exam: Full ROM, Normal Inspection. absent: Joint Swelling, Pedal Edema - Neurological Exam Neurological Exam: Alert, Awake, CN II-XII Intact, Normal Gait, Oriented x3 Assessment and Plan - Assessment and Plan (Free Text) Assessment: 60 yr old M admitted with asthma excaerbation found to have CHRISSIE s/p biluminal endoscopic evaluation on 05/29/16 only significant for hiatal hernia, gastritis s /p biopsy and Colonoscopy- no stigmata of bleeding/diverticulosis/internal hemorrhoids Plan: Continue PPI daily once Follow gastric and duodenal biopsies Diet as tolerated No mass lesions or stigmata of recent bleeding found No other GI intervention required Will sign off Patient can follow in my office after discharge Thank you for letting us participate in the care of this patient
[2016-05-31] MEDS: Albuterol-Ipratrop 3 mg / 0.5 (3 ml) UD INH SCH ×2 (01:21→08:10)
--- NOTE | 2016-05-31 03:27 | CP.PCM.PN ---
Subjective - Date & Time of Evaluation Date of Evaluation: 05/30/16 Time of Evaluation: 11:15 - Subjective Subjective: No complaints. Objective - Vital Signs/Intake and Output Vital Signs (last 24 hours): Temp Pulse Resp BP Pulse Ox 98.4 F 69 19 158/67 H 96 05/30/16 23:52 05/30/16 23:52 05/30/16 23:52 05/30/16 23:52 05/30/16 23:52 Intake and Output: 05/30/16 05/31/16 18:59 06:59 Intake Total 50 Balance 50 - Medications Medications: Current Medications Acetaminophen (Tylenol 325mg Tab) 650 mg PO Q6 PRN PRN Reason: Fever >100.4 F Albuterol (Ventolin Hfa 90 Mcg/Actuation (8 G)) 2 puff IH Q4H PRN PRN Reason: Shortness of Breath Last Admin: 05/29/16 11:21 Dose: 2 puff Albuterol/Ipratropium (Duoneb 3 Mg/0.5 Mg (3 Ml) Ud) 3 ml INH RQ6 [facility] Last Admin: 05/31/16 01:21 Dose: 3 ml Amlodipine Besylate (Norvasc) 10 mg PO DAILY [facility] Last Admin: 05/30/16 09:32 Dose: 10 mg Enoxaparin Sodium (Lovenox) 40 mg SC DAILY [facility] PRN Reason: Protocol Last Admin: 05/28/16 12:36 Dose: 40 mg Hydrochlorothiazide (Microzide) 12.5 mg PO DAILY [facility] Last Admin: 05/30/16 14:48 Dose: 12.5 mg Methylprednisolone 60 mg/ (Sodium Chloride) 50 mls @ 100 mls/hr IV Q6 [facility] Last Admin: 05/30/16 16:48 Dose: 50 mls/hr Iron Sucrose 200 mg/ Sodium (Chloride) 110 mls @ 110 mls/hr IVPB DAILY [facility] Stop: 06/02/16 11:31 Last Admin: 05/30/16 10:37 Dose: 110 mls/hr Levofloxacin/Dextrose (Levaquin 750mg) 750 mg in 150 mls @ 100 mls/hr IVPB DAILY [facility] Last Admin: 05/30/16 14:47 Dose: 100 mls/hr Tiotropium [place] (Spiriva) 18 mcg INH DAILY [facility] Last Admin: 05/30/16 16:46 Dose: 18 mcg Valsartan (Diovan) 80 mg PO DAILY [facility] Last Admin: 05/30/16 09:32 Dose: 80 mg - Labs Labs: 05/30/16 05:05 05/30/16 05:05 PT 10.9 SECONDS (9.6-11.2) 05/27/16 22:05 INR 1.05 (0.92-1.08) 05/27/16 22:05 APTT 29.1 SECONDS (23.3-32.5) 05/27/16 22:05 - Head Exam Head Exam: ATRAUMATIC - Eye Exam Eye Exam: Normal appearance - ENT Exam ENT Exam: Mucous Membranes Dry - Respiratory Exam Respiratory Exam: NORMAL BREATHING PATTERN - Cardiovascular Exam Cardiovascular Exam: +S1, +S2 - GI/Abdominal Exam GI & Abdominal Exam: Normal Bowel Sounds - Extremities Exam Extremities Exam: Normal Inspection Assessment and Plan (1) Anemia Assessment & Plan: iron deficiency s/p EGD and colonoscopy; no pathology or bleeding noted on parenteral iron Status: Acute (2) Tobacco abuse Assessment & Plan: smoking cessation Status: Acute
[2016-05-31] MEDS: methylPREDNISolone 60 MG in Sodium Chloride 0.9% 50 ML IV SCH ×3 (04:17→22:06)
[2016-05-31 06:52] LABS: MEAN CORPUSCULAR HEMOGLOBIN 20.7 pg (27.0-31.0); RED CELL DISTRIBUTION WIDTH 24.5 % (11.5-14.5); WHITE BLOOD COUNT 25.4 K/uL (4.8-10.8)
[2016-05-31 07:10] LABS: BLOOD UREA NITROGEN 32 mg/dl (9-20); CALCIUM 9.1 mg/dL (8.4-10.2); CARBON DIOXIDE 29 mmol/L (22-30); CHLORIDE 101 mmol/L (98-107); GFR AFRICAN-AMERICAN > 60; GLUCOSE,RANDOM 138 mg/dL (75-110); SODIUM 141 mmol/l (132-148)
--- NOTE | 2016-05-31 07:32 | CP.PCM.PN ---
<Ladan Mcnally - Last Filed: 05/31/16 19:26> Subjective - Date & Time of Evaluation Date of Evaluation: 05/31/16 Time of Evaluation: 07:32 - Subjective Subjective: 60M seen and examined at bedside this morning with attending. Patient reports improvement in symptoms, breathing easier, denies chest pain. Objective - Vital Signs/Intake and Output Vital Signs (last 24 hours): Temp Pulse Resp BP Pulse Ox 37.0 C 66 20 167/73 H 96 05/31/16 05:00 05/31/16 05:00 05/31/16 05:00 05/31/16 05:00 05/31/16 05:00 Intake and Output: 05/31/16 05/31/16 06:59 18:59 Intake Total 50 Balance 50 - Medications Medications: Current Medications Acetaminophen (Tylenol 325mg Tab) 650 mg PO Q6 PRN PRN Reason: Fever >100.4 F Albuterol (Ventolin Hfa 90 Mcg/Actuation (8 G)) 2 puff IH Q4H PRN PRN Reason: Shortness of Breath Last Admin: 05/29/16 11:21 Dose: 2 puff Albuterol/Ipratropium (Duoneb 3 Mg/0.5 Mg (3 Ml) Ud) 3 ml INH RQ6 [facility]AY[facility]E Last Admin: 05/31/16 01:21 Dose: 3 ml Amlodipine Besylate (Norvasc) 10 mg PO DAILY HAYDEE Last Admin: 05/30/16 09:32 Dose: 10 mg Enoxaparin Sodium (Lovenox) 40 mg SC DAILY HAYDEE PRN Reason: Protocol Last Admin: 05/28/16 12:36 Dose: 40 mg Hydrochlorothiazide (Microzide) 12.5 mg PO DAILY HAYDEE Last Admin: 05/30/16 14:48 Dose: 12.5 mg Methylprednisolone 60 mg/ (Sodium Chloride) 50 mls @ 100 mls/hr IV Q6 HAYDEE Last Admin: 05/31/16 04:17 Dose: 50 mls/hr Iron Sucrose 200 mg/ Sodium (Chloride) 110 mls @ 110 mls/hr IVPB DAILY [facility]AYDEE Stop: 06/02/16 11:31 Last Admin: 05/30/16 10:37 Dose: 110 mls/hr Levofloxacin/Dextrose (Levaquin 750mg) 750 mg in 150 mls @ 100 mls/hr IVPB DAILY [facility] Last Admin: 05/30/16 14:47 Dose: 100 mls/hr Tiotropium [place] (Spiriva) 18 mcg INH DAILY [facility] Last Admin: 05/30/16 16:46 Dose: 18 mcg Valsartan (Diovan) 160 mg PO DAILY [facility] - Labs Labs: 05/31/16 05:25 05/30/16 05:05 PT 10.9 SECONDS (9.6-11.2) 05/27/16 22:05 INR 1.05 (0.92-1.08) 05/27/16 22:05 APTT 29.1 SECONDS (23.3-32.5) 05/27/16 22:05 - Constitutional Appears: Well, Non-toxic, No Acute Distress - Head Exam Head Exam: ATRAUMATIC, NORMAL INSPECTION - Eye Exam Eye Exam: EOMI, PERRL - ENT Exam ENT Exam: Mucous Membranes Moist, Normal Exam - Respiratory Exam Respiratory Exam: Wheezes (improved greatly from day prior), NORMAL BREATHING PATTERN (without oxygen, resting comfortably). absent: Rhonchi, Respiratory Distress - Cardiovascular Exam Cardiovascular Exam: REGULAR RHYTHM. absent: JVD - GI/Abdominal Exam GI & Abdominal Exam: Soft, Normal Bowel Sounds. absent: Tenderness - Extremities Exam Extremities Exam: Full ROM, Normal Capillary Refill. absent: Pedal Edema - Neurological Exam Neurological Exam: Alert, Awake - Psychiatric Exam Psychiatric exam: Normal Affect, Normal Mood - Skin Skin Exam: Normal Color, Warm Assessment and Plan (2) Microcytic anemia Assessment & Plan: Asymptomatic, iron-deficiency anemia. This is likely chronic and due to dietary vs. absorption dysfunction (not supported by remaining labwork) and no support for an acute blood loss anemia. In addition, upper and lower endoscopy 05/29/16 only significant for gastritis. - GI consult (Dr Armendariz)appreciated: Scopes negative for evidence acute bleeding , f/u outpatient - Heme/Onc Consult (Dr Heller) appreciated: Rec Venofer, daily - Venofer 200mg, IV, Daily - d/c on Feosol 325mg, BID - d/c on Colace 100mg, BID - f/u gastric bx from GI - f/u Dr Armendariz as outpatient Status: Acute (3) HTN (hypertension) Assessment & Plan: Improved control, likely challenging 2/2 steroids, Valsartan increased. - Valsartan 160mg, PO, Daily - Norvasc 10mg, PO, Daily - HCTZ 12.5mg, PO, Daily - Monitor BP Status: Chronic (4) HLD (hyperlipidemia) Assessment & Plan: Not currently taking any statin. Patient to follow up for further evaluation. Status: Chronic (5) COPD (chronic obstructive pulmonary disease) Assessment & Plan: Clinically improving, will f/u CXR this morning and decrease steroids. Steroids contributing to leukocytosis/hyperglycemia/elevated BP. - Ventolin 2puffs, IH, Q4H PRN - Albuterol 0.083% 2.5ml, INH, Q6H - Spiriva 18mcg, INH, Daily - Decrease Methyprednisone to 60mg, IV, Q12H - Levaquin 750mg, IV, Daily - f/u CXR results Status: Acute (6) DVT prophylaxis Assessment & Plan: Lovenox 40mg, SC, Daily Status: Acute (7) Anxiety Assessment & Plan: Seems well-controlled at this time without medication. Status: Chronic (8) History of asthma Assessment & Plan: Although patient may have a history of asthma (unknown type) with his symptoms, smoking history, and CXR findings this is most consistent with a COPD exacerbation. Status: Chronic <Hieu Moreno - Last Filed: 06/08/16 17:00> Objective - Vital Signs/Intake and Output Vital Signs (last 24 hours): Temp Pulse Resp BP Pulse Ox 97.8 F 86 18 158/76 H 95 06/01/16 12:13 06/01/16 14:16 06/01/16 12:13 06/01/16 14:16 06/01/16 12:13 - Labs Labs: 05/31/16 05:25 05/31/16 05:25 PT 10.9 SECONDS (9.6-11.2) 05/27/16 22:05 INR 1.05 (0.92-1.08) 05/27/16 22:05 APTT 29.1 SECONDS (23.3-32.5) 05/27/16 22:05 Assessment and Plan - Assessment and Plan (Free Text) Assessment: Patient was personally seen and examined by me in rounds with residents. Available labs and diagnostic data reviewed. Case, Patient's condition and management plan discussed with residents in rounds. Agree with resident's documentation. Plan: As ordered. Hieu Moreno MD
[2016-05-31] MEDS: Albuterol 0.083% Inhal Sol (2.5 mg/3 mL) UD INH SCH ×3 (08:10→20:10)
[2016-05-31] MEDS: levoFLOXacin 750 mg in D5W 750 MG/150 ML BAG IVPB SCH (08:42)
[2016-05-31] MEDS: Enoxaparin 40 mg Syringe SC SCH (08:44)
[2016-05-31] MEDS: Tiotropium 18 mcg Cap For Inhalation INH SCH (08:45)
--- NOTE | 2016-05-31 12:21 | RAD ---
HISTORY: COPD + ?pneumonia COMPARISON: 05/27/2016 TECHNIQUE: Chest PA and lateral FINDINGS: LUNGS: Pulmonary hyperinflation with flattening of the diaphragm. Consistent with emphysema. No infiltrate. PLEURA: No significant pleural effusion identified. No pneumothorax apparent. CARDIOVASCULAR: Normal. OSSEOUS STRUCTURES: No significant abnormalities. VISUALIZED UPPER ABDOMEN: Normal. OTHER FINDINGS: None. IMPRESSION: No acute abnormality. Pulmonary emphysema.
[2016-05-31] MEDS: Pantoprazole 40 mg EC Tab PO SCH (12:30)
--- NOTE | 2016-05-31 23:08 | CP.PCM.PN ---
Subjective - Date & Time of Evaluation Date of Evaluation: 05/31/16 Time of Evaluation: 12:30 - Subjective Subjective: No complaints. Objective - Vital Signs/Intake and Output Vital Signs (last 24 hours): Temp Pulse Resp BP Pulse Ox 98.1 F 99 H 18 157/82 H 96 05/31/16 20:19 05/31/16 20:19 05/31/16 20:19 05/31/16 20:19 05/31/16 20:19 Intake and Output: 05/31/16 06/01/16 18:59 06:59 Intake Total 50 Balance 50 - Medications Medications: Current Medications Acetaminophen (Tylenol 325mg Tab) 650 mg PO Q6 PRN PRN Reason: Fever >100.4 F Albuterol (Ventolin Hfa 90 Mcg/Actuation (8 G)) 2 puff IH Q4H PRN PRN Reason: Shortness of Breath Last Admin: 05/29/16 11:21 Dose: 2 puff Albuterol Sulfate (Albuterol 0.083% Inhal Camila (2.5 Mg/3 Ml) Ud) 2.5 mg INH RQ6 [facility] Last Admin: 05/31/16 20:10 Dose: 2.5 mg Amlodipine Besylate (Norvasc) 10 mg PO DAILY HAYDEE Last Admin: 05/31/16 08:45 Dose: 10 mg Enoxaparin Sodium (Lovenox) 40 mg SC DAILY HAYDEE PRN Reason: Protocol Last Admin: 05/31/16 08:44 Dose: 40 mg Hydrochlorothiazide (Microzide) 12.5 mg PO DAILY HAYDEE Last Admin: 05/31/16 08:44 Dose: 12.5 mg Iron Sucrose 200 mg/ Sodium (Chloride) 110 mls @ 110 mls/hr IVPB DAILY [facility] Stop: 06/02/16 11:31 Last Admin: 05/31/16 12:00 Dose: 110 mls/hr Levofloxacin/Dextrose (Levaquin 750mg) 750 mg in 150 mls @ 100 mls/hr IVPB DAILY [facility] Last Admin: 05/31/16 08:42 Dose: 100 mls/hr Methylprednisolone 60 mg/ (Sodium Chloride) 50 mls @ 100 mls/hr IV Q12 [facility]AYDEE Last Admin: 05/31/16 22:06 Dose: 100 mls/hr Pantoprazole Sodium (Protonix Ec Tab) 40 mg PO DAILY [facility] Last Admin: 05/31/16 12:30 Dose: 40 mg Tiotropium [place] (Spiriva) 18 mcg INH DAILY [facility] Last Admin: 05/31/16 08:45 Dose: 18 mcg Valsartan (Diovan) 320 mg PO DAILY [facility] - Labs Labs: 05/31/16 05:25 05/31/16 05:25 PT 10.9 SECONDS (9.6-11.2) 05/27/16 22:05 INR 1.05 (0.92-1.08) 05/27/16 22:05 APTT 29.1 SECONDS (23.3-32.5) 05/27/16 22:05 - Head Exam Head Exam: ATRAUMATIC - Eye Exam Eye Exam: Normal appearance - ENT Exam ENT Exam: Mucous Membranes Dry - Respiratory Exam Respiratory Exam: NORMAL BREATHING PATTERN - GI/Abdominal Exam GI & Abdominal Exam: Normal Bowel Sounds - Extremities Exam Extremities Exam: Normal Inspection Assessment and Plan (1) Anemia Assessment & Plan: iron deficiency no active bleeding noted on endoscopy on IV iron s/p PRBC transfusion Status: Acute (2) Tobacco abuse Assessment & Plan: smoking cessation discussed at length Status: Acute
[2016-06-01] MEDS: Albuterol 0.083% Inhal Sol (2.5 mg/3 mL) UD INH SCH ×3 (01:02→13:05)
--- NOTE | 2016-06-01 06:47 | CP.PCM.DIS ---
Provider - Provider Date of Admission: 05/28/16 19:17 Attending physician: Hieu Moreno MD Consults: Dr Heller (Heme/Onc), Dr Armendariz (GI) Time Spent in preparation of Discharge (in minutes): 45 Diagnosis - Discharge Diagnosis (1) COPD exacerbation Status: Acute Comment: Resolved, although initially thought to be associated with a possible pneumonia this was ruled out with repeat CXR/labs/clinical evaluation. Discharge on Ventolin and Spiriva, with tapering steroids. (2) Microcytic anemia Status: Acute Comment: Diet iron-deficienicy anemia as no source of bleeding identified. Biopsies of gastric mucosa showing chronic gastritis and h. pylori negative. Patient needs to be discharged with Feosol, Omeprazole 40mg, Colace. (3) HTN (hypertension) Status: Chronic Comment: Hydrochlorothiazide 12.5, Valsartan 320mg, Norvasc 10mg (4) HLD (hyperlipidemia) Status: Chronic Comment: Will follow up outpatient. Hospital Course - Lab Results Lab Results: Most Recent Lab Values WBC 25.4 K/uL (4.8-10.8) H 05/31/16 05:25 RBC 3.91 Mil/uL (4.40-5.90) L 05/31/16 05:25 Hgb 8.1 g/dL (12.0-18.0) L 05/31/16 05:25 Hct 27.0 % (35.0-51.0) L 05/31/16 05:25 MCV 69.0 fl (80.0-94.0) L 05/31/16 05:25 MCH 20.7 pg (27.0-31.0) L 05/31/16 05:25 MCHC 30.0 g/dL (33.0-37.0) L 05/31/16 05:25 RDW 24.5 % (11.5-14.5) H 05/31/16 05:25 Plt Count 295 K/uL (130-400) 05/31/16 05:25 MPV 7.7 fl (7.2-11.7) 05/27/16 16:04 Neut % (Auto) 52.4 % (50.0-75.0) 05/27/16 16:04 Lymph % (Auto) 34.2 % (20.0-40.0) 05/27/16 16:04 Porter % (Auto) 8.9 % (0.0-10.0) 05/27/16 16:04 Eos % (Auto) 3.7 % (0.0-4.0) 05/27/16 16:04 Baso % (Auto) 0.8 % (0.0-2.0) 05/27/16 16:04 Neut # 6.8 K/uL (1.8-7.0) 05/27/16 16:04 Lymph # 4.4 K/uL (1.0-4.3) H 05/27/16 16:04 Porter # 1.2 K/uL (0.0-0.8) H 05/27/16 16:04 Eos # 0.5 K/uL (0.0-0.7) 05/27/16 16:04 Baso # 0.1 K/uL (0.0-0.2) 05/27/16 16:04 Retic Count 2.6 % (0.5-1.5) H 05/27/16 18:39 PT 10.9 SECONDS (9.6-11.2) 05/27/16 22:05 INR 1.05 (0.92-1.08) 05/27/16 22:05 APTT 29.1 SECONDS (23.3-32.5) 05/27/16 22:05 Sodium 141 mmol/l (132-148) 05/31/16 05:25 Potassium 4.0 MMOL/L (3.6-5.0) 05/31/16 05:25 Chloride 101 mmol/L (98-107) 05/31/16 05:25 Carbon Dioxide 29 mmol/L (22-30) 05/31/16 05:25 Anion Gap 15 (10-20) 05/31/16 05:25 BUN 32 mg/dl (9-20) H 05/31/16 05:25 Creatinine 0.9 mg/dL (0.8-1.5) 05/31/16 05:25 Est GFR ( Amer) > 60 05/31/16 05:25 Est GFR (Non-Af Amer) > 60 05/31/16 05:25 Random Glucose 138 mg/dL (75-110) H 05/31/16 05:25 Calcium 9.1 mg/dL (8.4-10.2) 05/31/16 05:25 Iron 16 ug/dL (49-181) L 05/27/16 18:39 TIBC 321 ug/dL (250-450) 05/27/16 18:39 % Saturation 5 % (20-55) L 05/27/16 18:39 Erythropoietin 103.5 mIU/mL (2.6-18.5) H 05/27/16 18:39 Ferritin 17.8 ng/mL 05/27/16 18:39 Total Bilirubin 0.2 mg/dl (0.2-1.3) 05/30/16 05:05 AST 25 U/L (17-59) 05/30/16 05:05 ALT 27 U/L (21-72) 05/30/16 05:05 Alkaline Phosphatase 49 U/L (38-126) 05/30/16 05:05 Troponin I 0.0440 ng/mL (0.00-0.120) 05/27/16 16:04 NT-Pro-B Natriuret Pep 634 pg/ml (0-900) 05/27/16 16:04 Total Protein 6.4 G/DL (6.3-8.2) 05/30/16 05:05 Albumin 2.9 g/dL (3.5-5.0) L 05/30/16 05:05 Globulin 3.5 gm/dL (2.2-3.9) 05/30/16 05:05 Albumin/Globulin Ratio 0.8 (1.0-2.1) L 05/30/16 05:05 Vitamin B12 704 pg/mL (239-931) 05/27/16 18:39 Influenza Typ A,B (EIA) Negative for flu a/b (NEGATIVE) 05/27/16 15:00 Blood Type A POSITIVE 05/27/16 18:39 Blood Type Confirm A POSITIVE 05/30/16 20:00 Antibody Screen Negative 05/27/16 18:39 BBK History Checked No verified bt 05/27/16 18:39 - Hospital Course Hospital Course: 60M admitted for acute on chronic COPD exacerbation and found to have iron deficiency anemia that was worked up and likely secondary to diet poor in iron. Patient now with greatly improved breathing, CXR consistent with COPD. Anemia has incremently continued to improve and he will be discharged on appropriate PO medication. This patient is stable for discharge on the medications prescribed with follow up in 1 week at the [facility] due to proximity to [facility]. Discharge Exam - Head Exam Head Exam: ATRAUMATIC - Eye Exam Eye Exam: EOMI, PERRL - ENT Exam ENT Exam: Mucous Membranes Moist, Normal Exam - Respiratory Exam Respiratory Exam: Wheezes (minimal), NORMAL BREATHING PATTERN. absent: Decreased Breath Sounds, Rhonchi, Respiratory Distress - Cardiovascular Exam Cardiovascular Exam: REGULAR RHYTHM. absent: JVD - GI/Abdominal Exam GI & Abdominal Exam: Normal Bowel Sounds, Soft. absent: Tenderness - Extremities Exam Extremities exam: normal capillary refill, pedal pulses present - Neurological Exam Neurological exam: Alert, Oriented x3 - Psychiatric Exam Psychiatric exam: Normal Affect, Normal Mood - Skin Skin Exam: Normal Color, Warm Discharge Plan - Discharge Medications Prescriptions: Albuterol HFA [Ventolin HFA 90 mcg/actuation (8 g)] 2 puff IH Q4H PRN #1 dev PRN Reason: Shortness Of Breath amLODIPine [Norvasc] 10 mg PO DAILY #30 tab Docusate [Colace] 100 mg PO BID #60 cap Ferrous Sulfate [Feosol] 325 mg PO BID #60 tab hydroCHLOROthiazide [Microzide] 12.5 mg PO DAILY #30 cap Methylprednisolone [Medrol] 32 mg PO BID #10 tablet Omeprazole 40 mg PO DAILY #30 capsule. Tiotropium [Spiriva] 18 mcg INH DAILY #1 dev Valsartan [Diovan] 320 mg PO DAILY #30 tab - Follow Up Plan Condition: STABLE Disposition: HOME/ ROUTINE Instructions: Iron Rich Diet (DC), COPD (Chronic Obstructive Pulmonary Disease ) (DC) Referrals: [facility] [place] [Outside] - 1 Week (Dr Mcnally ([phone]; # 5 then #2)) Kala ROBERTS,MD Christy [Medical Doctor] -
--- NOTE | 2016-06-01 06:48 | PQF GENQUE ---
This form is a permanent part of the medical record 06/01/16 Dr. Moreno, Would you please clarify if CAP is ruled in or ruled out. PN 05/30 under COPD heading-- complicated by CAP. PN 05/31 No mention of CAP. Documentation of a history of asthma .Patient presents with fever, productive cough, chest tightness, congestion and wheezing. CXR no active disease. Treated with Solumedrol, Duonebs, IVAB and Ventolin Hfa Clarification of your documentation is requested to better reflect the severity of illness and intensity of treatment of your patient. PHYSICIAN'S RESPONSE [ ] Pneumonia ruled in [ ] Pneumonia ruled out [ ] Other explanation please specify [ ] Unable to determine Based on your medical judgment of the clinical indicators outlined above please clarify the following: [] Practitioner response [] If unable to determine, please check the box, sign and date. Present On Admission (POA) Indicator: [] Present at the time of admission [] Not present at the time of admission [] Clinically Undetermined In responding to this query, please exercise your independent professional judgment. The fact that a question is asked does not imply that any particular answer is desired or expected. Thank you for your clarification on this documentation. If you have any questions please call:[phone] * Thank you, Eryn Mcwilliams RN [facility]
[2016-06-01 08:17] VITALS: RESP 18
[2016-06-01] MEDS: Pantoprazole 40 mg EC Tab PO SCH (09:23)
[2016-06-01] MEDS: Tiotropium 18 mcg Cap For Inhalation INH SCH (09:23)
[2016-06-01] MEDS: Enoxaparin 40 mg Syringe SC SCH (09:24)
[2016-06-01 12:20] VITALS: TEMP 97.8; O2SAT 95
[2016-06-01 14:16] VITALS: BP 158/76; PULSE 86
== END 2016-06-01 15:50 | disposition home or self-care (01) | DRG 88 ==
LOC: H.ER 13:47 → H.ERHOLD 19:14 → H.TEL 22:16 → OBSVTOIN 05-28 19:17
PROVIDERS: ADMIT Internal Medicine; ATTEND Internal Medicine
PROC: 0DB68ZX Excision of Stomach, Via Natural or Artificial Opening Endoscopic, Diagnostic (ICD-10-PCS; 2016-05-29)
PROC: 0DJD8ZZ Inspection of Lower Intestinal Tract, Via Natural or Artificial Opening Endoscopic (ICD-10-PCS; principal; 2016-05-29 13:00)
PROC: 0DB98ZX Excision of Duodenum, Via Natural or Artificial Opening Endoscopic, Diagnostic (ICD-10-PCS; 2016-05-29 13:00)
DX: J44.1 Chronic obstructive pulmonary disease with (acute) exacerbation (principal); K25.9 Gastric ulcer, unspecified as acute or chronic, without hemorrhage or perforation; D50.9 Iron deficiency anemia, unspecified; I10 Essential (primary) hypertension; E78.5 Hyperlipidemia, unspecified; E78.00 Pure hypercholesterolemia, unspecified; F41.9 Anxiety disorder, unspecified; J45.909 Unspecified asthma, uncomplicated; K29.70 Gastritis, unspecified, without bleeding; K44.9 Diaphragmatic hernia without obstruction or gangrene; Z86.73 Personal history of transient ischemic attack (TIA), and cerebral infarction without residual deficits; K57.30 Diverticulosis of large intestine without perforation or abscess without bleeding; K64.8 Other hemorrhoids; Z72.0 Tobacco use

== ENCOUNTER 2016-06-11 13:13 | Emergency (ER) | payer MEDICAID ==
[2016-06-11 13:23] VITALS: BP 140/68; PULSE 77; TEMP 97; O2SAT 97
--- NOTE | 2016-06-11 13:35 | ED PDOC ---
HPI: SOB/CHF/COPD Time Seen by Provider: 06/11/16 13:33 Chief Complaint (Nursing): Shortness Of Breath Chief Complaint (Provider): Dyspnea History Per: Patient History/Exam Limitations: no limitations Onset/Duration Of Symptoms: Days (Today) Current Symptoms Are (Timing): Still Present Additional Complaint(s): Pt. with dyspnea and wheezes like his asthma. Has been walking today and gets shortness of breath. Tried his meds but didn't help as much. No chest pain, back pain, numbness, tingles. Feels weakness all over. No abd pain, nausea, vomit, diarrhea. Is homeless. No leg pain. Past Medical History Reviewed: Nursing Documentation, Vital Signs Vital Signs: Last Vital Signs Temp 97.0 F L 06/11/16 13:22 Pulse 77 06/11/16 13:22 Resp 16 06/11/16 13:30 BP 140/68 06/11/16 13:22 Pulse Ox 97 06/11/16 13:49 - Medical History PMH: Anemia, Anxiety, Asthma, HTN, Hypercholesterolemia Denies: Chronic Kidney Disease - Surgical History Surgical History: Denies: Coronary Stent - Family History Family History: States: [place] (Mother), CAD (Mother) - Social History Current smoker - smoking cessation education provided: No Alcohol: None Drugs: Denies - Immunization History Hx Influenza Vaccination: No - Home Medications Home Medications: Ambulatory Orders Medication Instructions Recorded Albuterol HFA [Ventolin HFA 90 2 puff IH Q4H PRN #1 dev 06/01/16 mcg/actuation (8 g)] Docusate [Colace] 100 mg PO BID #60 cap 06/01/16 Ferrous Sulfate [Feosol] 325 mg PO BID #60 tab 06/01/16 Methylprednisolone [Medrol] 32 mg PO BID #10 tablet 06/01/16 Omeprazole 40 mg PO DAILY #30 capsule. 06/01/16 Tiotropium [Spiriva] 18 mcg INH DAILY #1 dev 06/01/16 Valsartan [Diovan] 320 mg PO DAILY #30 tab 06/01/16 amLODIPine [Norvasc] 10 mg PO DAILY #30 tab 06/01/16 hydroCHLOROthiazide [Microzide] 12.5 mg PO DAILY #30 cap 06/01/16 Albuterol Sulfate [Proair Hfa] 0.09 mg IH Q6H PRN #2 inh 06/11/16 predniSONE [predniSONE Tab] 20 mg PO BID 5 Days 06/11/16 - Allergies Allergies/Adverse Reactions: Allergies Allergy/AdvReac Type Severity Reaction Status Date / Time No Known Allergies Allergy Verified 06/11/16 13:22 Review of Systems ROS Statement: Except As Marked, All Systems Reviewed And Found Negative Cardiovascular: Negative for: Chest Pain, Palpitations Respiratory: Positive for: Shortness of Breath, SOB with Exertion, Wheezing. Negative for: Cough, Sputum Gastrointestinal: Negative for: Nausea Physical Exam - Reviewed Nursing Documentation Reviewed: Yes Vital Signs Reviewed: Yes - Physical Exam Appears: Positive for: Non-toxic, No Acute Distress Head Exam: Positive for: ATRAUMATIC, NORMAL INSPECTION, NORMOCEPHALIC Skin: Positive for: Normal Color, Warm, DRY Eye Exam: Positive for: EOMI, Normal appearance, PERRL ENT: Positive for: Normal ENT Inspection Neck: Positive for: Normal, Painless ROM, Supple Cardiovascular/Chest: Positive for: Regular Rate, Rhythm. Negative for: Edema Respiratory: Positive for: Decreased Breath Sounds, Wheezing (mild on expiration ) Gastrointestinal/Abdominal: Positive for: Normal Exam, Bowel Sounds, Soft. Negative for: Tenderness Back: Positive for: Normal Inspection. Negative for: L CVA Tenderness, R CVA Tenderness Extremity: Positive for: Normal ROM. Negative for: Tenderness, Pedal Edema Neurologic/Psych: Positive for: Alert, Oriented - ECG ECG: Positive for: Interpreted By Me, Viewed By Me ECG Rhythm: Positive for: Sinus Rhythm, Nonspecific Changes Interpretation Of Abn EKG: ekg same as old O2 Sat by Pulse Oximetry: 97 Pulse Ox Interpretation: Normal - Radiology X-Ray: Read By Radiologist X-Ray Interpretation: No Acute Disease - Progress ED Course And Treament: 1555: Stable. AAOx3. Pain free. Tolerated PO. No dyspnea. Ambulated with no issues. Disposition - Clinical Impression Clinical Impression: Asthma exacerbation - Patient ED Disposition Is Patient to be Admitted: No Counseled Patient/Family Regarding: Studies Performed, Diagnosis, Need For Followup, Rx Given - Disposition Referrals: [facility] [Outside] - 06/12/16 Disposition: Routine/Home Disposition Time: 15:57 Condition: STABLE Additional Instructions: Return if not better in 3 days. Prescriptions: Albuterol Sulfate [Proair Hfa] 0.09 mg IH Q6H PRN #2 inh PRN Reason: Wheezing predniSONE [predniSONE Tab] 20 mg PO BID 5 Days Instructions: Bronchospasm (ED)
[2016-06-11] MEDS ORDERED: Albuterol-Ipratrop 3 mg / 0.5 (3 ml) UD INH STA ×2 (13:42→13:43)
[2016-06-11] MEDS ORDERED: Albuterol-Ipratrop 3 mg / 0.5 (3 ml) UD IH STA (13:42)
[2016-06-11 13:56] VITALS: RESP 16
--- NOTE | 2016-06-11 14:56 | RAD ---
HISTORY: dyspnea COMPARISON: 06/07/2016 TECHNIQUE: Chest PA and lateral FINDINGS: LUNGS: There is once again evidence of probable emphysematous changes and mild areas of scarring. There is minimal interval improvement in aeration at the left and right lung base. No new infiltrate is seen. No CHF is noted. Trachea is midline. Heart is unchanged. PLEURA: No significant pleural effusion identified. No pneumothorax apparent. CARDIOVASCULAR: Unchanged OSSEOUS STRUCTURES: No significant abnormalities. VISUALIZED UPPER ABDOMEN: Normal. OTHER FINDINGS: None. IMPRESSION: Hyperinflation and chronic areas of scarring. Minimal improvement in aeration at the lung bases.
--- NOTE | 2016-06-12 08:54 | CARD ---
APPROVED REPORT EKG Measurement Heart [id number] <Conclusion> Sinus rhythm with premature atrial complexes Left ventricular hypertrophy with QRS widening and repolarization abnormality Abnormal ECG
== END 2016-06-11 17:00 | disposition home or self-care (01) ==
LOC: H.ER 13:13
DX: J45.901 Unspecified asthma with (acute) exacerbation (principal); R06.00 Dyspnea, unspecified; E78.00 Pure hypercholesterolemia, unspecified; F41.9 Anxiety disorder, unspecified; I10 Essential (primary) hypertension; I49.1 Atrial premature depolarization

== ENCOUNTER 2016-06-15 09:46 | Emergency (ER) | payer MEDICAID ==
[2016-06-15 09:53] VITALS: O2SAT 99
[2016-06-15 09:54] VITALS: BMI 20.7
--- NOTE | 2016-06-15 10:55 | ED PDOC ---
HPI: SOB/CHF/COPD Time Seen by Provider: 06/15/16 10:07 Chief Complaint (Nursing): Shortness Of Breath Chief Complaint (Provider): Shortness Of Breath History Per: Patient History/Exam Limitations: no limitations Onset/Duration Of Symptoms: Days Current Symptoms Are (Timing): Still Present Exacerbating Factor(s): Exertion Current Respiratory Medications: See Home Med List Severity: Mild Associated Symptoms: Chest Pain Additional Complaint(s): Patient is a 60 year old male with a history of asthma, presents to ED for chest pain that developed over night. Patient states he is unsure how long the pain lasted, states it woke him from sleep but he was able to promptly return to sleep. Patient also reports dyspnea on exertion, present for 2 months. As pr patient, evaluated in ED several times over the course of 2 months for symptoms. States he has been taking his medication as prescribed. Past Medical History Reviewed: Historical Data, Nursing Documentation, Vital Signs Vital Signs: Last Vital Signs Temp 97 F L 06/15/16 10:02 Pulse 83 06/15/16 13:41 Resp 19 06/15/16 10:07 BP 146/105 H 06/15/16 10:02 Pulse Ox 99 06/15/16 13:41 - Medical History PMH: Anemia, Anxiety, Asthma, CVA, HTN, Hypercholesterolemia, Hyperlipidemia Denies: Chronic Kidney Disease - Surgical History Surgical History: No Surg Hx Denies: Coronary Stent - Family History Family History: States: [place] (Mother), CAD (Mother) - Living Arrangements Living Arrangements: Other (non domiciled) - Social History Ex-Smoker (has not smoked in the last 12 months): Yes Alcohol: None Drugs: Denies - Immunization History Hx Influenza Vaccination: No - Home Medications Home Medications: Ambulatory Orders Medication Instructions Recorded Albuterol HFA [Ventolin HFA 90 2 puff IH Q4H PRN #1 dev 06/01/16 mcg/actuation (8 g)] Docusate [Colace] 100 mg PO BID #60 cap 06/01/16 Ferrous Sulfate [Feosol] 325 mg PO BID #60 tab 06/01/16 Omeprazole 40 mg PO DAILY #30 capsule. 06/01/16 Tiotropium [Spiriva] 18 mcg INH DAILY #1 dev 06/01/16 Valsartan [Diovan] 320 mg PO DAILY #30 tab 06/01/16 amLODIPine [Norvasc] 10 mg PO DAILY #30 tab 06/01/16 hydroCHLOROthiazide [Microzide] 12.5 mg PO DAILY #30 cap 06/01/16 predniSONE [predniSONE Tab] 20 mg PO BID 5 Days 06/11/16 Apixaban [Eliquis] 5 mg PO BID 06/15/16 Aspirin [Ecotrin] 81 mg PO DAILY 06/15/16 - Allergies Allergies/Adverse Reactions: Allergies Allergy/AdvReac Type Severity Reaction Status Date / Time No Known Allergies Allergy Verified 06/11/16 13:22 Wells Criteria for PE - Wells Criteria for Pulmonary Embolism Clinical Signs and Symptoms of DVT: No P.E is #1 Diagnosis, or Equally Likely: No Heart Rate >100: No Immobilization at least 3 days;Surgery previous 4 weeks: No Previous, objectively diagnosed PE or DVT: No Hemoptysis: No Malignancy w/treatment within 6 months, or palliative: No Total Score: 0 Review of Systems ROS Statement: Except As Marked, All Systems Reviewed And Found Negative Constitutional: Negative for: Fever Cardiovascular: Positive for: Chest Pain (resolved ). Negative for: Palpitations, Light Headedness Respiratory: Positive for: Shortness of Breath. Negative for: Cough, Sputum Musculoskeletal: Negative for: Back Pain Skin: Negative for: Rash Physical Exam - Reviewed Nursing Documentation Reviewed: Yes Vital Signs Reviewed: Yes - Physical Exam Appears: Positive for: Non-toxic, No Acute Distress Skin: Positive for: Normal Color, Warm Eye Exam: Positive for: Normal appearance Neck: Positive for: Normal, Painless ROM Cardiovascular/Chest: Positive for: Regular Rate, Rhythm, Chest Non Tender. Negative for: Murmur Respiratory: Positive for: Normal Breath Sounds. Negative for: Respiratory Distress Extremity: Positive for: Normal ROM. Negative for: Pedal Edema, Calf Tenderness Neurologic/Psych: Positive for: Alert, Oriented. Negative for: Motor/Sensory Deficits - Laboratory Results Result Diagrams: 06/15/16 11:26 06/15/16 11:00 - ECG ECG: Positive for: Interpreted By Me, Viewed By Me ECG Rhythm: Positive for: Normal QRS, Normal ST Segment, Sinus Rhythm, Nonspecific Changes Interpretation Of Abn EKG: LVH Rate: 83 O2 Sat by Pulse Oximetry: 99 (RA) Pulse Ox Interpretation: Normal Medical Decision Making Medical Decision Making: Time: 1025 Initial impression: Chest pain r/o ACS, PE, asthma exacerbation. No evidence of asthma exacerbation Initial plan: -- EKG -- BnP -- BMP -- Troponin -- CBC -- D-dimer -- CXR Scribe Attestation: Documented by Zoë Agudelo acting as a scribe for Elia Sage MD. Scribe Attestation: All medical record entries made by the Scribe were at my direction and personally dictated by me. I have reviewed the chart and agree that the record accurately reflects my personal performance of the history, physical exam, medical decision making, and the department course for this patient. I have also personally directed, reviewed, and agree with the discharge instructions and disposition. Disposition - Clinical Impression Clinical Impression: Asthma, Chest pain, Anemia - Patient ED Disposition Is Patient to be Admitted: No - Disposition Referrals: [facility] [Outside] Disposition: Routine/Home Disposition Time: 13:40 Condition: GOOD Additional Instructions: Return for worsening. Follow up with your PCP in 2-3 days. Instructions: Chest Pain (ED), Iron Deficiency Anemia (ED) KIRIT Risk Score for UA/NSTEMI - KIRIT Risk Score Age > 64: NO 3 or more CAD Risk Factors: NO Known CAD (Stenosis greater than 50%): NO Aspirin use in past 7 days: YES Severe Angina: NO EKG ST changes greater than 0.5mm: NO Positive Cardiac Marker: NO KIRIT Score: 1 % risk at 14 days of: all cause mortality, new or recurrent SC, or severe recurrent ischemia requiring urgen revascularization: 5%
[2016-06-15 11:19] LABS: BLOOD UREA NITROGEN 45 mg/dl (9-20); CALCIUM 9.2 mg/dL (8.4-10.2); CARBON DIOXIDE 21 mmol/L (22-30); CHLORIDE 105 mmol/L (98-107); GFR AFRICAN-AMERICAN > 60; GLUCOSE,RANDOM 84 mg/dL (75-110); SODIUM 135 mmol/l (132-148)
--- NOTE | 2016-06-15 11:23 | RAD ---
HISTORY: chest pain COMPARISON: Comparison is made to 06/11/2016 TECHNIQUE: Chest PA and lateral FINDINGS: LUNGS: No significant interval change in the lungs noted since the previous exam. Mild hyperinflation of the lungs. PLEURA: No significant pleural effusion identified. No pneumothorax apparent. CARDIOVASCULAR: Normal. OSSEOUS STRUCTURES: No significant abnormalities. VISUALIZED UPPER ABDOMEN: Normal. OTHER FINDINGS: None. IMPRESSION: No significant interval change.
[2016-06-15 11:30] LABS: BASO % 0.4 % (0.0-2.0); EOS % 0.3 % (0.0-4.0); HEMATOCRIT 25.1 % (35.0-51.0); LYMPH # 0.4 K/uL (1.0-4.3); LYMPH % 3.2 % (20.0-40.0); MEAN CELL VOLUME 71.9 fl (80.0-94.0); MEAN CORPUSCULAR HGB CONC 30.5 g/dL (33.0-37.0); MEAN PLATELET VOLUME 8.7 fl (7.2-11.7); MONO # 1.4 K/uL (0.0-0.8); MONO % 12.3 % (0.0-10.0); NEUT # 9.8 K/uL (1.8-7.0); NEUT % 83.8 % (50.0-75.0); NRBC % 0.5 % (0.0-0.0); PLATELET COUNT 143 K/uL (130-400); WHITE BLOOD COUNT 11.7 K/uL (4.8-10.8)
[2016-06-15 11:45] LABS: POTASSIUM 4.9 MMOL/L (3.6-5.0)
[2016-06-15 12:02] LABS: MYELOCYTE 2 % (0-0); NEUTROPHIL 82 % (42-75); TOTAL CELLS COUNTED 100
[2016-06-15 12:08] LABS: GIANT PLATELETS PRESENT; LARGE PLATELETS PRESENT
[2016-06-15 14:15] VITALS: BP 132/74; PULSE 82; RESP 18; TEMP 98.6
--- NOTE | 2016-06-16 12:32 | CARD ---
APPROVED REPORT EKG Measurement Heart [id number] <Conclusion> Normal sinus rhythm Left ventricular hypertrophy with QRS widening and repolarization abnormality Abnormal ECG
== END 2016-06-15 14:17 | disposition home or self-care (01) ==
LOC: H.ER 09:46 → SUPCPDRO 09:46 → H.ER 14:17
DX: R07.9 Chest pain, unspecified (principal); J45.909 Unspecified asthma, uncomplicated; D64.9 Anemia, unspecified; E78.00 Pure hypercholesterolemia, unspecified; F41.9 Anxiety disorder, unspecified; I10 Essential (primary) hypertension; Z79.01 Long term (current) use of anticoagulants; Z79.82 Long term (current) use of aspirin; Z86.73 Personal history of transient ischemic attack (TIA), and cerebral infarction without residual deficits

== ENCOUNTER 2016-06-22 16:06 | Emergency (ER) | payer MEDICAID | END 2016-06-22 21:00 | disposition home or self-care (01) | LOC: H.ER 16:06 | DX: M25.562 Pain in left knee (principal) ==

== ENCOUNTER 2016-06-24 08:07 | Emergency (ER) | payer MEDICAID ==
[2016-06-24 08:19] VITALS: BP 98/55; PULSE 89; RESP 20; TEMP 97.1; O2SAT 99; BMI 21.6
--- NOTE | 2016-06-24 08:50 | ED PDOC ---
Lower Extremity Pain/Injury Time Seen by Provider: 06/24/16 08:25 Chief Complaint (Nursing): Lower Extremity Problem/Injury Chief Complaint (Provider): Lower Extremity Problem/Injury History Per: Patient History/Exam Limitations: no limitations Additional Complaint(s): 60 y/o male presents to the emergency department with left knee pain (chronic) that worsens on ambulation. Denies new trauma or fever. Patient uses a cane. Past Medical History Reviewed: Historical Data, Nursing Documentation, Vital Signs Vital Signs: Last Vital Signs Temp 97.1 F L 06/24/16 08:16 Pulse 89 06/24/16 08:16 Resp 20 06/24/16 08:16 BP 98/55 L 06/24/16 08:16 Pulse Ox 99 06/24/16 08:16 - Medical History PMH: Anemia, Anxiety, Asthma, CVA, HTN, Hypercholesterolemia, Hyperlipidemia Denies: Chronic Kidney Disease Other PMH: Cardiac and pulmonary disease - Surgical History Surgical History: Denies: Coronary Stent - Family History Family History: States: [place] (Mother), CAD (Mother) - Social History Current smoker - smoking cessation education provided: No Alcohol: None Drugs: Denies - Immunization History Hx Influenza Vaccination: No - Home Medications Home Medications: Ambulatory Orders Medication Instructions Recorded Albuterol HFA [Ventolin HFA 90 2 puff IH Q4H PRN #1 dev 06/01/16 mcg/actuation (8 g)] Docusate [Colace] 100 mg PO BID #60 cap 06/01/16 Ferrous Sulfate [Feosol] 325 mg PO BID #60 tab 06/01/16 Omeprazole 40 mg PO DAILY #30 capsule. 06/01/16 Tiotropium [Spiriva] 18 mcg INH DAILY #1 dev 06/01/16 Valsartan [Diovan] 320 mg PO DAILY #30 tab 06/01/16 amLODIPine [Norvasc] 10 mg PO DAILY #30 tab 06/01/16 hydroCHLOROthiazide [Microzide] 12.5 mg PO DAILY #30 cap 06/01/16 predniSONE [predniSONE Tab] 20 mg PO BID 5 Days 06/11/16 Apixaban [Eliquis] 5 mg PO BID 06/15/16 Aspirin [Ecotrin] 81 mg PO DAILY 06/15/16 Celecoxib [Celebrex] 50 mg PO Q12 #14 capsule 06/24/16 - Allergies Allergies/Adverse Reactions: Allergies Allergy/AdvReac Type Severity Reaction Status Date / Time No Known Allergies Allergy Verified 06/11/16 13:22 Review of Systems ROS Statement: Except As Marked, All Systems Reviewed And Found Negative Constitutional: Negative for: Fever Musculoskeletal: Positive for: Other (Left knee) Physical Exam - Reviewed Nursing Documentation Reviewed: Yes Vital Signs Reviewed: Yes - Physical Exam Appears: Positive for: Non-toxic, No Acute Distress Head Exam: Positive for: ATRAUMATIC, NORMOCEPHALIC Skin: Positive for: Normal Color, Warm, Dry Extremity: Positive for: Normal ROM (Full ROM), Pedal Edema (Mild to the distal lower extrm and ankles b/l ), Swelling (Mild to the distal lower extrm and ankles b/l ). Negative for: Deformity (No deformity or swelling to the left knee. ), Other (No erythema or warmth noted.) - ECG O2 Sat by Pulse Oximetry: 99 (RA) Pulse Ox Interpretation: Normal Medical Decision Making Medical Decision Making: Time: 8:25 Initial impression: Left Knee Pain Initial plan: --Knee 3 Views LT (RAD) --Revaluation Scribe Attestation: Documented by Symone Sánchez, acting as a scribe for Wojciech Shah MD. Provider Scribe Attestation: All medical record entries made by the Scribe were at my direction and personally dictated by me. I have reviewed the chart and agree that the record accurately reflects my personal performance of the history, physical exam, medical decision making, and the department course for this patient. I have also personally directed, reviewed, and agree with the discharge instructions and disposition. Disposition - Clinical Impression Clinical Impression: Arthritis of knee - Patient ED Disposition Is Patient to be Admitted: No - Disposition Referrals: Narayan Thorne MD [Primary Care Provider] - Disposition: Routine/Home Disposition Time: 09:04 Condition: FAIR Prescriptions: Celecoxib [Celebrex] 50 mg PO Q12 #14 capsule Instructions: Arthritis (ED)
--- NOTE | 2016-06-24 10:35 | RAD ---
PROCEDURE: Left Knee Radiographs. HISTORY: COMPARISON: None available. FINDINGS: BONES: No acute displaced fracture. JOINTS: No dislocation. JOINT EFFUSION: No significant joint effusion. OTHER FINDINGS: Soft tissues appear grossly unremarkable. Vascular calcifications. No evidence of radiopaque foreign body. IMPRESSION: No acute displaced fracture, dislocation, or significant joint effusion identified. If symptoms persist, or if there is continued clinical concern, x-ray follow-up in 7-10 days should be considered.
== END 2016-06-24 09:32 | disposition home or self-care (01) ==
LOC: H.ER 08:07 → SUPCPDRO 08:07 → H.ER 09:32
DX: M17.12 Unilateral primary osteoarthritis, left knee (principal)

== ENCOUNTER 2016-06-30 11:18 | Emergency (ER) | payer MEDICAID ==
[2016-06-30 11:18] VITALS: BMI 21.6
[2016-06-30 11:34] VITALS: BP 112/58; PULSE 97; RESP 18; TEMP 98.3; O2SAT 96
--- NOTE | 2016-06-30 12:06 | ED PDOC ---
Lower Extremity Pain/Injury Time Seen by Provider: 06/30/16 11:48 Chief Complaint (Nursing): Lower Extremity Problem/Injury Chief Complaint (Provider): Lower Extremity Problem/Injury History Per: Patient History/Exam Limitations: no limitations Onset/Duration Of Symptoms: Days Current Symptoms Are (Timing): Still Present Severity: Mild Additional Complaint(s): Patient is a 60 year old male who presents to ED for medication refill. Patient reports he needs a refill of his Spiriva as well as ongoing leg pain with swelling. States mild relief with Tramadol but recent ran out, not due for refills till tomorrow. Patient was evaluated in ED a few days prior with Xrays ( -) fracture (+) possible arthritis. Notes he sleeps in a senior care and something sleeps sitting up. Past Medical History Reviewed: Historical Data, Nursing Documentation, Vital Signs Vital Signs: Last Vital Signs Temp 98.3 F 06/30/16 11:33 Pulse 97 H 06/30/16 11:33 Resp 18 06/30/16 11:33 BP 112/58 L 06/30/16 11:33 Pulse Ox 96 06/30/16 11:33 - Medical History PMH: Anemia, Anxiety, Asthma, CVA, HTN, Hypercholesterolemia, Hyperlipidemia Denies: Chronic Kidney Disease - Surgical History Surgical History: No Surg Hx Denies: Coronary Stent - Family History Family History: States: [place] (Mother), CAD (Mother) - Living Arrangements Living Arrangements: Other (non domiciled) - Immunization History Hx Tetanus Toxoid Vaccination: No Hx Influenza Vaccination: No Hx Pneumococcal Vaccination: No - Home Medications Home Medications: Ambulatory Orders Medication Instructions Recorded Albuterol HFA [Ventolin HFA 90 2 puff IH Q4H PRN #1 dev 06/01/16 mcg/actuation (8 g)] Docusate [Colace] 100 mg PO BID #60 cap 06/01/16 Ferrous Sulfate [Feosol] 325 mg PO BID #60 tab 06/01/16 Omeprazole 40 mg PO DAILY #30 capsule. 06/01/16 Tiotropium [Spiriva] 18 mcg INH DAILY #1 dev 06/01/16 Valsartan [Diovan] 320 mg PO DAILY #30 tab 06/01/16 amLODIPine [Norvasc] 10 mg PO DAILY #30 tab 06/01/16 hydroCHLOROthiazide [Microzide] 12.5 mg PO DAILY #30 cap 06/01/16 predniSONE [predniSONE Tab] 20 mg PO BID 5 Days 06/11/16 Apixaban [Eliquis] 5 mg PO BID 06/15/16 Aspirin [Ecotrin] 81 mg PO DAILY 06/15/16 Celecoxib [Celebrex] 50 mg PO Q12 #14 capsule 06/24/16 Tiotropium [Spiriva] 18 mcg IH DAILY #30 cap 06/30/16 hydroCHLOROthiazide [Hydrodiuril] 25 mg PO DAILY #10 tab 06/30/16 traMADol [Ultram] 50 mg PO TID PRN #12 tab 06/30/16 - Allergies Allergies/Adverse Reactions: Allergies Allergy/AdvReac Type Severity Reaction Status Date / Time No Known Allergies Allergy Verified 06/30/16 11:45 Review of Systems ROS Statement: Except As Marked, All Systems Reviewed And Found Negative Constitutional: Negative for: Weakness Cardiovascular: Negative for: Chest Pain, Palpitations Respiratory: Negative for: Shortness of Breath Musculoskeletal: Positive for: Leg Pain. Negative for: Neck Pain Skin: Negative for: Rash Neurological: Negative for: Weakness, Numbness Physical Exam - Reviewed Nursing Documentation Reviewed: Yes Vital Signs Reviewed: Yes - Physical Exam Appears: Positive for: Non-toxic, No Acute Distress Skin: Positive for: Normal Color, Warm Eye Exam: Positive for: Normal appearance Neck: Positive for: Normal, Painless ROM Extremity: Positive for: Normal ROM (Full ROM to all extremities ), Pedal Edema (trace ot BLE), Other ((+) wearing old shoes with poor foot hygiene ). Negative for: Tenderness, Calf Tenderness Neurologic/Psych: Positive for: Alert, Oriented - ECG O2 Sat by Pulse Oximetry: 96 (RA) Pulse Ox Interpretation: Normal Medical Decision Making Medical Decision Making: Time: 1150 Initial impression: Leg pain, medication refill Initial plan: Medication list reviewed, patient taking amlodipine which can cause lower extremity pain and swelling. Patient instructed to discontinue, instead we increased HtCz. Instructed patient to follow up with clinic for HTN check. -- Tramadol PO Patient given clean socks in ED prior to discharge Scribe Attestation: Documented by Zoë Agudelo acting as a scribe for Miko Pierre DO. MD Scribe Attestation: All medical record entries made by the Scribe were at my direction and personally dictated by me. I have reviewed the chart and agree that the record accurately reflects my personal performance of the history, physical exam, medical decision making, and the department course for this patient. I have also personally directed, reviewed, and agree with the discharge instructions and disposition. Disposition - Clinical Impression Clinical Impression: Leg pain, Leg edema - Disposition Referrals: [facility] [Outside] Disposition: Routine/Home Disposition Time: 12:10 Condition: STABLE Additional Instructions: See clinic for continued care and Rx refills/ Prescriptions: hydroCHLOROthiazide [Hydrodiuril] 25 mg PO DAILY #10 tab Tiotropium [Spiriva] 18 mcg IH DAILY #30 cap traMADol [Ultram] 50 mg PO TID PRN #12 tab PRN Reason: Pain, Moderate (4-7) Instructions: Leg Edema (ED), Leg Pain (ED), Arthritis (ED)
== END 2016-06-30 12:15 | disposition home or self-care (01) ==
LOC: H.ER 11:18
DX: M79.605 Pain in left leg (principal); R06.00 Dyspnea, unspecified

== ENCOUNTER 2016-07-07 12:22 | Emergency (ER) | payer MEDICAID ==
[2016-07-07 12:22] VITALS: BMI 21.6
[2016-07-07 12:32] VITALS: BP 130/61; PULSE 77; TEMP 98.2; O2SAT 99
[2016-07-07] MEDS ORDERED: Albuterol-Ipratrop 3 mg / 0.5 (3 ml) UD INH STA ×2 (12:51→13:27)
--- NOTE | 2016-07-07 13:06 | RAD ---
HISTORY: SOB COMPARISON: 06/15/2016 TECHNIQUE: Chest PA and lateral FINDINGS: LUNGS: No active pulmonary disease. PLEURA: No significant pleural effusion identified. No pneumothorax apparent. CARDIOVASCULAR: Normal. OSSEOUS STRUCTURES: No significant abnormalities. VISUALIZED UPPER ABDOMEN: Normal. OTHER FINDINGS: None. IMPRESSION: No active disease.
[2016-07-07 13:12] VITALS: RESP 20
[2016-07-07] MEDS ORDERED: Albuterol-Ipratrop 3 mg / 0.5 (3 ml) UD ONE (13:45)
[2016-07-07 13:53] LABS: BASO # 0.1 K/uL (0.0-0.2); BASO % 1.4 % (0.0-2.0); EOS % 12.7 % (0.0-4.0); HEMATOCRIT 24.1 % (35.0-51.0); LYMPH # 2.9 K/uL (1.0-4.3); LYMPH % 37.9 % (20.0-40.0); MEAN CELL VOLUME 74.3 fl (80.0-94.0); MEAN CORPUSCULAR HEMOGLOBIN 22.7 pg (27.0-31.0); MEAN CORPUSCULAR HGB CONC 30.5 g/dL (33.0-37.0); MEAN PLATELET VOLUME 7.4 fl (7.2-11.7); MONO # 0.7 K/uL (0.0-0.8); MONO % 9.4 % (0.0-10.0); NEUT % 38.6 % (50.0-75.0); NRBC % 0.1 % (0.0-0.0); RED CELL DISTRIBUTION WIDTH 27.3 % (11.5-14.5); WHITE BLOOD COUNT 7.7 K/uL (4.8-10.8)
[2016-07-07 14:01] LABS: ALB/GLOB RATIO 1.2 (1.0-2.1); ALKALINE PHOSPHATASE 47 U/L (38-126); ALT/SGPT 39 U/L (21-72); AST/SGOT 41 U/L (17-59); BILIRUBIN,TOTAL 0.2 mg/dl (0.2-1.3); BLOOD UREA NITROGEN 30 mg/dl (9-20); CALCIUM 9.1 mg/dL (8.4-10.2); CARBON DIOXIDE 26 mmol/L (22-30); CHLORIDE 103 mmol/L (98-107); GFR AFRICAN-AMERICAN > 60; GLUCOSE,RANDOM 91 mg/dL (75-110); POTASSIUM 4.3 MMOL/L (3.6-5.0); SODIUM 138 mmol/l (132-148); TOTAL PROTEIN 6.5 G/DL (6.3-8.2)
--- NOTE | 2016-07-07 14:04 | US ---
PROCEDURE: Bilateral lower extremity venous duplex Doppler. HISTORY: Bilateral leg pain COMPARISON: None available. TECHNIQUE: Bilateral common femoral, superficial femoral, popliteal and posterior tibial veins were evaluated. Flow was assessed with color Doppler, compressibility, assessment of phasic flow and augmentation response. FINDINGS: COMMON FEMORAL VEIN: Right CFV: Unremarkable. Left CFV: Unremarkable. SUPERFICIAL FEMORAL VEIN: Right SFV: Unremarkable. Left SFV: Unremarkable. POPLITEAL VEIN: Right Popliteal: Unremarkable. Left Popliteal: Unremarkable. POSTERIOR TIBIAL VEIN: Right PTV: Unremarkable. Left PTV: Unremarkable. OTHER FINDINGS: None. IMPRESSION: No evidence of deep venous thrombosis bilaterally.
[2016-07-07 14:58] LABS: PARTIAL THROMBOPLASTIN TIME 35.9 Seconds (25.6-37.1)
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
--- NOTE | 2016-07-08 12:51 | CARD ---
APPROVED REPORT EKG Measurement Heart [id number] <Conclusion> Normal sinus rhythm Incomplete left bundle branch block Left ventricular hypertrophy with repolarization abnormality Abnormal ECG
== END 2016-07-07 16:27 | disposition home or self-care (01) ==
LOC: H.ER 12:22
DX: J44.1 Chronic obstructive pulmonary disease with (acute) exacerbation (principal); G89.29 Other chronic pain; R60.0 Localized edema; D64.9 Anemia, unspecified; E78.00 Pure hypercholesterolemia, unspecified; F41.9 Anxiety disorder, unspecified; I10 Essential (primary) hypertension; I44.7 Left bundle-branch block, unspecified; J45.909 Unspecified asthma, uncomplicated; Z79.01 Long term (current) use of anticoagulants; Z79.82 Long term (current) use of aspirin; Z86.73 Personal history of transient ischemic attack (TIA), and cerebral infarction without residual deficits; F17.210 Nicotine dependence, cigarettes, uncomplicated

== ENCOUNTER 2016-07-14 19:15 | Emergency (ER) | payer MEDICAID ==
[2016-07-14 19:15] VITALS: BMI 21.6
[2016-07-14 19:40] VITALS: BP 140/70; PULSE 86
[2016-07-14] MEDS ORDERED: Albuterol-Ipratrop 3 mg / 0.5 (3 ml) UD INH STA ×3 (20:15→20:17)
[2016-07-14] MEDS ORDERED: Albuterol-Ipratrop 3 mg / 0.5 (3 ml) UD ONE (20:27)
[2016-07-14 20:42] LABS: BASO # 0.1 K/uL (0.0-0.2); BASO % 0.5 % (0.0-2.0); EOS # 0.1 K/uL (0.0-0.7); HEMATOCRIT 25.2 % (35.0-51.0); LYMPH # 3.7 K/uL (1.0-4.3); LYMPH % 24.8 % (20.0-40.0); MEAN CELL VOLUME 75.3 fl (80.0-94.0); MEAN CORPUSCULAR HEMOGLOBIN 22.9 pg (27.0-31.0); MEAN CORPUSCULAR HGB CONC 30.4 g/dL (33.0-37.0); MEAN PLATELET VOLUME 7.4 fl (7.2-11.7); MONO # 1.3 K/uL (0.0-0.8); MONO % 8.8 % (0.0-10.0); NEUT # 9.7 K/uL (1.8-7.0); NEUT % 64.9 % (50.0-75.0); NRBC % 0.5 % (0.0-0.0); RED CELL DISTRIBUTION WIDTH 29.3 % (11.5-14.5)
[2016-07-14 20:44] LABS: ALB/GLOB RATIO 1.2 (1.0-2.1); ALKALINE PHOSPHATASE 50 U/L (38-126); ALT/SGPT 30 U/L (21-72); AST/SGOT 25 U/L (17-59); BILIRUBIN,TOTAL 0.3 mg/dl (0.2-1.3); BLOOD UREA NITROGEN 29 mg/dl (9-20); CARBON DIOXIDE 26 mmol/L (22-30); CHLORIDE 103 mmol/L (98-107); GFR AFRICAN-AMERICAN > 60; GLUCOSE,RANDOM 128 mg/dL (75-110); POTASSIUM 3.7 MMOL/L (3.6-5.0); SODIUM 137 mmol/l (132-148); TOTAL PROTEIN 6.3 G/DL (6.3-8.2)
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
[2016-07-14 21:30] VITALS: RESP 16; O2SAT 99
== END 2016-07-14 22:42 | disposition home or self-care (01) ==
LOC: H.ER 19:15
DX: J45.909 Unspecified asthma, uncomplicated (principal); R60.9 Edema, unspecified

== ENCOUNTER 2016-07-20 01:15 | Emergency (ER) | payer MEDICAID ==
[2016-07-20 01:15] VITALS: BMI 21.6
[2016-07-20 01:38] VITALS: BP 141/65; PULSE 87; RESP 16; TEMP 97.4; O2SAT 95
--- NOTE | 2016-07-20 02:17 | ED PDOC ---
Lower Extremity Pain/Injury Time Seen by Provider: 07/20/16 01:33 Chief Complaint (Nursing): Lower Extremity Problem/Injury Chief Complaint (Provider): lower extremity swelling History Per: Patient History/Exam Limitations: no limitations Onset/Duration Of Symptoms: Days (6 months ) Current Symptoms Are (Timing): Still Present Additional Complaint(s): 60yo male with PMHx including asthma, HTN, arthritis presents the ED w/ c/o lower extremity swelling x 6 months. Patient is homeless and is known to ED for bed-seeking behavior. Patient was seen by this provider 6 days prior for same. States he has been unable to elevate legs due to homeless state. Denies fever, cough, v/d, SOB, chest pain. Past Medical History Reviewed: Historical Data, Nursing Documentation, Vital Signs Vital Signs: Last Vital Signs Temp 97.4 F L 07/20/16 01:34 Pulse 87 07/20/16 01:34 Resp 16 07/20/16 01:34 BP 141/65 07/20/16 01:34 Pulse Ox 95 07/20/16 01:34 - Medical History PMH: Anemia, Anxiety, Arthritis, Asthma, COPD, CVA, HTN, Hypercholesterolemia, Hyperlipidemia Denies: Chronic Kidney Disease - Surgical History Surgical History: No Surg Hx Denies: Coronary Stent - Family History Family History: States: [place] (Mother), CAD (Mother) - Living Arrangements Living Arrangements: Other (homeless) - Social History Current smoker - smoking cessation education provided: No Ex-Smoker (has not smoked in the last 12 months): Yes Alcohol: Other (former alcohol abuser) Drugs: Other (former drug abuser ) - Immunization History Hx Tetanus Toxoid Vaccination: No Hx Influenza Vaccination: No Hx Pneumococcal Vaccination: No - Home Medications Home Medications: Ambulatory Orders Medication Instructions Recorded Albuterol HFA [Ventolin HFA 90 2 puff IH Q4H PRN #1 dev 06/01/16 mcg/actuation (8 g)] Docusate [Colace] 100 mg PO BID #60 cap 06/01/16 Ferrous Sulfate [Feosol] 325 mg PO BID #60 tab 06/01/16 Omeprazole 40 mg PO DAILY #30 capsule. 06/01/16 Tiotropium [Spiriva] 18 mcg INH DAILY #1 dev 06/01/16 amLODIPine [Norvasc] 10 mg PO DAILY #30 tab 06/01/16 Apixaban [Eliquis] 5 mg PO BID 06/15/16 Aspirin [Ecotrin] 81 mg PO DAILY 06/15/16 hydroCHLOROthiazide [Hydrodiuril] 25 mg PO DAILY #10 tab 06/30/16 Fluticasone Propionate [Flovent 220 mcg INH PRN 07/14/16 Hfa] Methylprednisolone [Medrol Dosepak] 4 mg PO ASDIR #1 pkg 07/14/16 Sertraline [Zoloft] 50 mg PO BID 07/14/16 Valsartan/Hydrochlorothiazide 160 mg PO BID 07/14/16 [Diovan Hct 160-25 mg Tablet] - Allergies Allergies/Adverse Reactions: Allergies Allergy/AdvReac Type Severity Reaction Status Date / Time No Known Allergies Allergy Verified 07/20/16 01:34 Review of Systems ROS Statement: Except As Marked, All Systems Reviewed And Found Negative Constitutional: Negative for: Fever Cardiovascular: Positive for: Edema (lower extremity ). Negative for: Chest Pain Respiratory: Negative for: Cough, Shortness of Breath Gastrointestinal: Negative for: Vomiting, Diarrhea Physical Exam - Reviewed Nursing Documentation Reviewed: Yes Vital Signs Reviewed: Yes - Physical Exam Appears: Positive for: Well, No Acute Distress Head Exam: Positive for: ATRAUMATIC, NORMAL INSPECTION, NORMOCEPHALIC Skin: Positive for: Normal Color, Warm, Dry Eye Exam: Positive for: Normal appearance, EOMI, PERRL ENT: Positive for: Normal ENT Inspection Neck: Positive for: Normal, Painless ROM, Supple Cardiovascular/Chest: Positive for: Regular Rate, Rhythm. Negative for: Murmur , Tachycardia Respiratory: Positive for: Normal Breath Sounds. Negative for: Wheezing, Respiratory Distress Gastrointestinal/Abdominal: Positive for: Normal Exam, Soft. Negative for: Tenderness Back: Positive for: Normal Inspection. Negative for: L CVA Tenderness, R CVA Tenderness Extremity: Positive for: Normal ROM, Swelling (1+ edema to RLE ). Negative for : Tenderness, Deformity Neurologic/Psych: Positive for: Alert, Oriented - ECG O2 Sat by Pulse Oximetry: 95 Pulse Ox Interpretation: Normal (RA) Medical Decision Making Medical Decision Makin: Impression: 60yo male w/ dependent edema Patient stable for d/c and instructed to f/u in the clinic. Scribe Attestation: Documented by Baldemar Esqueda acting as a scribe for Faustino Fountain MD. Provider Scribe Attestation: All medical record entries made by the Scribe were at my direction and personally dictated by me. I have reviewed the chart and agree that the record accurately reflects my personal performance of the history, physical exam, medical decision making, and the department course for this patient. I have also personally directed, reviewed, and agree with the discharge instructions and disposition. Disposition - Clinical Impression Clinical Impression: Leg edema - Patient ED Disposition Is Patient to be Admitted: No - Disposition Referrals: [facility] [Outside] Disposition: Routine/Home Disposition Time: 02:00 Condition: STABLE Instructions: Leg Edema (ED)
== END 2016-07-20 05:50 | disposition home or self-care (01) ==
LOC: H.ER 01:15
DX: R60.0 Localized edema (principal); Z59.0 Homelessness

== ENCOUNTER 2016-07-21 00:39 | Emergency (ER) | payer MEDICAID ==
[2016-07-21 00:39] VITALS: BMI 21.6
[2016-07-21 01:19] VITALS: BP 155/83; PULSE 110; TEMP 98; O2SAT 99
[2016-07-21 01:23] VITALS: RESP 20
[2016-07-21] MEDS ORDERED: Albuterol-Ipratrop 3 mg / 0.5 (3 ml) UD INH STA ×3 (01:29→01:38)
--- NOTE | 2016-07-21 01:54 | ED PDOC ---
HPI: SOB/CHF/COPD Time Seen by Provider: 07/21/16 01:19 Chief Complaint (Nursing): Shortness Of Breath Chief Complaint (Provider): SOB History Per: Patient History/Exam Limitations: no limitations Onset/Duration Of Symptoms: Mins Current Symptoms Are (Timing): Still Present Additional Complaint(s): 60yo male well known to ED and provider for multiple visits, homelessness, and h /o AFib, COPD, arthritis, and chronic leg edema presents to the ED with c/o SOB and chest tightness. Denies fever, n/v/d. Past Medical History Reviewed: Historical Data, Nursing Documentation, Vital Signs Vital Signs: Last Vital Signs Temp 98.0 F 07/21/16 00:51 Pulse 110 H 07/21/16 00:51 Resp 20 07/21/16 01:21 BP 155/83 H 07/21/16 00:51 Pulse Ox 99 07/21/16 01:57 - Medical History PMH: Anemia, Anxiety, Arthritis, Asthma, Atrial Fibrillation, COPD, CVA, HTN, Hypercholesterolemia, Hyperlipidemia Denies: Chronic Kidney Disease Other PMH: chronic leg edema - Surgical History Surgical History: No Surg Hx Denies: Coronary Stent - Family History Family History: States: [place] (Mother), CAD (Mother) - Social History Current smoker - smoking cessation education provided: No Ex-Smoker (has not smoked in the last 12 months): Yes Alcohol: Other (h/o alcohol abuse) Drugs: Other (h/o drug abuse ) - Immunization History Hx Tetanus Toxoid Vaccination: No Hx Influenza Vaccination: No Hx Pneumococcal Vaccination: No - Home Medications Home Medications: Ambulatory Orders Medication Instructions Recorded Albuterol HFA [Ventolin HFA 90 2 puff IH Q4H PRN #1 dev 06/01/16 mcg/actuation (8 g)] Docusate [Colace] 100 mg PO BID #60 cap 06/01/16 Ferrous Sulfate [Feosol] 325 mg PO BID #60 tab 06/01/16 Omeprazole 40 mg PO DAILY #30 capsule. 06/01/16 Tiotropium [Spiriva] 18 mcg INH DAILY #1 dev 06/01/16 amLODIPine [Norvasc] 10 mg PO DAILY #30 tab 06/01/16 Apixaban [Eliquis] 5 mg PO BID 06/15/16 Aspirin [Ecotrin] 81 mg PO DAILY 06/15/16 hydroCHLOROthiazide [Hydrodiuril] 25 mg PO DAILY #10 tab 06/30/16 Fluticasone Propionate [Flovent 220 mcg INH PRN 07/14/16 Hfa] Methylprednisolone [Medrol Dosepak] 4 mg PO ASDIR #1 pkg 07/14/16 Sertraline [Zoloft] 50 mg PO BID 07/14/16 Valsartan/Hydrochlorothiazide 160 mg PO BID 07/14/16 [Diovan Hct 160-25 mg Tablet] predniSONE [predniSONE Tab] 60 mg PO QAM #12 tab 07/21/16 - Allergies Allergies/Adverse Reactions: Allergies Allergy/AdvReac Type Severity Reaction Status Date / Time No Known Allergies Allergy Verified 07/20/16 01:34 Review of Systems ROS Statement: Except As Marked, All Systems Reviewed And Found Negative Constitutional: Negative for: Fever Cardiovascular: Positive for: Other (chest tightness ) Respiratory: Positive for: Shortness of Breath Gastrointestinal: Negative for: Nausea, Vomiting, Diarrhea Physical Exam - Reviewed Nursing Documentation Reviewed: Yes Vital Signs Reviewed: Yes - Physical Exam Appears: Positive for: Well, No Acute Distress Head Exam: Positive for: ATRAUMATIC, NORMAL INSPECTION, NORMOCEPHALIC Skin: Positive for: Normal Color, Warm, Dry Eye Exam: Positive for: Normal appearance, EOMI, PERRL ENT: Positive for: Normal ENT Inspection Neck: Positive for: Normal, Painless ROM, Supple Cardiovascular/Chest: Positive for: Regular Rate, Rhythm. Negative for: Murmur , Tachycardia Respiratory: Positive for: Wheezing (b/l diffuse ). Negative for: Respiratory Distress Gastrointestinal/Abdominal: Positive for: Normal Exam, Soft. Negative for: Tenderness Back: Positive for: Normal Inspection Extremity: Positive for: Normal ROM. Negative for: Deformity, Swelling Neurologic/Psych: Positive for: Alert, Oriented - ECG O2 Sat by Pulse Oximetry: 99 Pulse Ox Interpretation: Normal Medical Decision Making Medical Decision Makin: Impression: 60yo male w COPD exacerbation Plan: duoneb 3ml INH x3, prednisone 60mg PO reassess 0235: Patient reports marked improvement after treatment and is stable for d/c. Dx: COPD exacerbation Rx: prednisone improved Scribe Attestation: Documented by Baldemar Esqueda acting as a scribe for Faustino Fountain MD. Provider Scribe Attestation: All medical record entries made by the Scribe were at my direction and personally dictated by me. I have reviewed the chart and agree that the record accurately reflects my personal performance of the history, physical exam, medical decision making, and the department course for this patient. I have also personally directed, reviewed, and agree with the discharge instructions and disposition. Disposition - Clinical Impression Clinical Impression: COPD exacerbation - Patient ED Disposition Is Patient to be Admitted: No - Disposition Disposition: Routine/Home Disposition Time: 02:35 Condition: IMPROVED Prescriptions: predniSONE [predniSONE Tab] 60 mg PO QAM #12 tab Instructions: COPD (Chronic Obstructive Pulmonary Disease) (ED)
== END 2016-07-21 02:37 | disposition home or self-care (01) ==
LOC: H.ER 00:39
DX: J44.1 Chronic obstructive pulmonary disease with (acute) exacerbation (principal); Z86.79 Personal history of other diseases of the circulatory system; Z59.0 Homelessness

== ENCOUNTER 2016-07-25 00:07 | Emergency (ER) | payer MEDICAID ==
[2016-07-25 00:07] VITALS: BMI 21.6
[2016-07-25 00:36] VITALS: BP 131/53; PULSE 80; RESP 16; TEMP 98.1; O2SAT 95
[2016-07-25] MEDS ORDERED: Albuterol-Ipratrop 3 mg / 0.5 (3 ml) UD INH STA (00:37)
--- NOTE | 2016-07-25 00:44 | ED PDOC ---
HPI: SOB/CHF/COPD Time Seen by Provider: 07/25/16 00:23 Chief Complaint (Nursing): Shortness Of Breath Chief Complaint (Provider): Shortness of Breath History Per: Patient History/Exam Limitations: no limitations Onset/Duration Of Symptoms: Days (x1) Current Symptoms Are (Timing): Still Present Additional Complaint(s): 60 year old male presents to ED with complaints of SOB x1 day and a past medical history of asthma, COPD, arthritis, and AFIB. Patient is well known to provider for multiple visits and has a history of bed-seeking behavior. Patient is known former drug addict and is homeless. PCP: None Past Medical History Reviewed: Historical Data, Nursing Documentation, Vital Signs Vital Signs: Last Vital Signs Temp 98.1 F 07/25/16 00:30 Pulse 80 07/25/16 00:30 Resp 16 07/25/16 00:30 BP 131/53 L 07/25/16 00:30 Pulse Ox 95 07/25/16 00:30 - Medical History PMH: Anemia, Anxiety, Arthritis, Asthma, Atrial Fibrillation, COPD, CVA, HTN, Hypercholesterolemia, Hyperlipidemia Denies: Chronic Kidney Disease - Surgical History Surgical History: Denies: Coronary Stent - Family History Family History: States: [place] (Mother), CAD (Mother) - Living Arrangements Living Arrangements: Other (Nondomiciled) - Social History Alcohol: > 2 Drinks/Day Drugs: Other (Former drug user) - Immunization History Hx Tetanus Toxoid Vaccination: No Hx Influenza Vaccination: No Hx Pneumococcal Vaccination: No - Home Medications Home Medications: Ambulatory Orders Medication Instructions Recorded Albuterol HFA [Ventolin HFA 90 2 puff IH Q4H PRN #1 dev 06/01/16 mcg/actuation (8 g)] Docusate [Colace] 100 mg PO BID #60 cap 06/01/16 Ferrous Sulfate [Feosol] 325 mg PO BID #60 tab 06/01/16 Omeprazole 40 mg PO DAILY #30 capsule. 06/01/16 Tiotropium [Spiriva] 18 mcg INH DAILY #1 dev 06/01/16 amLODIPine [Norvasc] 10 mg PO DAILY #30 tab 06/01/16 Apixaban [Eliquis] 5 mg PO BID 06/15/16 Aspirin [Ecotrin] 81 mg PO DAILY 06/15/16 hydroCHLOROthiazide [Hydrodiuril] 25 mg PO DAILY #10 tab 06/30/16 Fluticasone Propionate [Flovent 220 mcg INH PRN 07/14/16 Hfa] Methylprednisolone [Medrol Dosepak] 4 mg PO ASDIR #1 pkg 07/14/16 Sertraline [Zoloft] 50 mg PO BID 07/14/16 Valsartan/Hydrochlorothiazide 160 mg PO BID 07/14/16 [Diovan Hct 160-25 mg Tablet] predniSONE [predniSONE Tab] 60 mg PO QAM #12 tab 07/21/16 - Allergies Allergies/Adverse Reactions: Allergies Allergy/AdvReac Type Severity Reaction Status Date / Time No Known Allergies Allergy Verified 07/20/16 01:34 Curb-65 Severity Score - CURB-65 Severity Score Respiratory Rate greater than/equal to 30: No Systolic BP <90 or Diastolic BP less than/equal 60mmHg: Yes Age >64: No Curb-65 Score: 1 Percentage 30-day mortality: 2.7% Wells Criteria for PE - Wells Criteria for Pulmonary Embolism Heart Rate >100: No Hemoptysis: No Total Score: 0 Review of Systems ROS Statement: Except As Marked, All Systems Reviewed And Found Negative Respiratory: Positive for: Shortness of Breath Physical Exam - Reviewed Nursing Documentation Reviewed: Yes Vital Signs Reviewed: Yes - Physical Exam Appears: Positive for: No Acute Distress Skin: Positive for: Normal Color, Warm, Dry Eye Exam: Positive for: Normal appearance ENT: Positive for: Normal ENT Inspection Neck: Positive for: Normal Cardiovascular/Chest: Positive for: Regular Rate, Rhythm. Negative for: Murmur Respiratory: Positive for: Wheezing (Mild expiratory wheeze). Negative for: Respiratory Distress Gastrointestinal/Abdominal: Positive for: Normal Exam Back: Positive for: Normal Inspection Extremity: Positive for: Normal ROM. Negative for: Deformity Neurologic/Psych: Positive for: Alert, Oriented - ECG O2 Sat by Pulse Oximetry: 95 (RA) Pulse Ox Interpretation: Normal Medical Decision Making Medical Decision Makin Initial impression: SOB Initial plan: * Duonebs 3mL INH * Peak Flow Pre/Post Tx Patient requested treatment. 0040 Patient is medically stable and ready for discharge. Counseling has been provided and patient is in agreement. Return if symptoms persist or acutely worsen. Dx: Asthma, Malingering Disorder Scribe Attestation: Documented by Jane Tomas acting as a scribe for Faustino S Sikand, MD. Scribe Attestation: All medical record entries made by the Scribe were at my direction and personally dictated by me. I have reviewed the chart and agree that the record accurately reflects my personal performance of the history, physical exam, medical decision making, and the department course for this patient. I have also personally directed, reviewed, and agree with the discharge instructions and disposition. Disposition - Clinical Impression Clinical Impression: History of asthma - Patient ED Disposition Is Patient to be Admitted: No Counseled Patient/Family Regarding: Diagnosis - Disposition Disposition: Routine/Home Disposition Time: 00:40 Condition: STABLE Instructions: Asthma (ED)
--- NOTE | 2016-07-29 08:05 | CARD ---
APPROVED REPORT EKG Measurement Heart [id number] <Conclusion> Sinus rhythm with premature atrial complexes Incomplete left bundle branch block Moderate voltage criteria for LVH, may be normal variant T wave abnormality, consider inferior ischemia Abnormal ECG
== END 2016-07-25 01:59 | disposition home or self-care (01) ==
LOC: H.ER 00:07
DX: J45.909 Unspecified asthma, uncomplicated (principal)

== ENCOUNTER 2016-07-28 09:11 | Inpatient (IN) | payer MEDICAID ==
[2016-07-28] MEDS ORDERED: Albuterol-Ipratrop 3 mg / 0.5 (3 ml) UD IH STA ×3 (09:34→09:35)
--- NOTE | 2016-07-28 09:38 | ED PDOC ---
HPI: SOB/CHF/COPD Time Seen by Provider: 07/28/16 09:29 Chief Complaint (Nursing): Respiratory Distress History Per: Patient Onset/Duration Of Symptoms: Days (2) Current Symptoms Are (Timing): Still Present Current Respiratory Medications: See Home Med List Severity: Moderate Associated Symptoms: Productive Cough. denies: Fever Additional Complaint(s): Sob wheezing and cough productive yellow sputum. Denies fever or chest pain Past Medical History Vital Signs: Last Vital Signs Temp 100 F H 07/28/16 09:35 Pulse 96 H 07/28/16 09:35 Resp 16 07/28/16 09:35 BP 133/62 07/28/16 09:35 Pulse Ox 96 07/28/16 09:35 - Medical History PMH: Anemia, Anxiety, Arthritis, Asthma, Atrial Fibrillation, COPD, CVA, HTN, Hypercholesterolemia, Hyperlipidemia Denies: Chronic Kidney Disease - Surgical History Surgical History: Denies: Coronary Stent - Family History Family History: States: [place] (Mother), CAD (Mother) - Immunization History Hx Tetanus Toxoid Vaccination: No Hx Influenza Vaccination: No Hx Pneumococcal Vaccination: No - Home Medications Home Medications: Ambulatory Orders Medication Instructions Recorded Albuterol HFA [Ventolin HFA 90 2 puff IH Q4H PRN #1 dev 06/01/16 mcg/actuation (8 g)] Docusate [Colace] 100 mg PO BID #60 cap 06/01/16 Ferrous Sulfate [Feosol] 325 mg PO BID #60 tab 06/01/16 Omeprazole 40 mg PO DAILY #30 capsule. 06/01/16 Tiotropium [Spiriva] 18 mcg INH DAILY #1 dev 06/01/16 amLODIPine [Norvasc] 10 mg PO DAILY #30 tab 06/01/16 Apixaban [Eliquis] 5 mg PO BID 06/15/16 Aspirin [Ecotrin] 81 mg PO DAILY 06/15/16 hydroCHLOROthiazide [Hydrodiuril] 25 mg PO DAILY #10 tab 06/30/16 Fluticasone Propionate [Flovent 220 mcg INH PRN 07/14/16 Hfa] Methylprednisolone [Medrol Dosepak] 4 mg PO ASDIR #1 pkg 07/14/16 Sertraline [Zoloft] 50 mg PO BID 07/14/16 Valsartan/Hydrochlorothiazide 160 mg PO BID 07/14/16 [Diovan Hct 160-25 mg Tablet] predniSONE [predniSONE Tab] 60 mg PO QAM #12 tab 07/21/16 - Allergies Allergies/Adverse Reactions: Allergies Allergy/AdvReac Type Severity Reaction Status Date / Time No Known Allergies Allergy Verified 07/20/16 01:34 Review of Systems ROS Statement: Except As Marked, All Systems Reviewed And Found Negative Respiratory: Positive for: Cough, Shortness of Breath Physical Exam - Reviewed Nursing Documentation Reviewed: Yes Vital Signs Reviewed: Yes - Physical Exam Appears: Positive for: Non-toxic, No Acute Distress Head Exam: Positive for: ATRAUMATIC, NORMAL INSPECTION, NORMOCEPHALIC Skin: Positive for: Normal Color, Warm, DRY Eye Exam: Positive for: EOMI, Normal appearance, PERRL ENT: Positive for: Normal ENT Inspection Neck: Positive for: Normal, Painless ROM Cardiovascular/Chest: Positive for: Regular Rate, Rhythm Respiratory: Positive for: Rhonchi, Wheezing. Negative for: Accessory Muscle Use, Respiratory Distress Gastrointestinal/Abdominal: Positive for: Normal Exam, Bowel Sounds, Soft Back: Positive for: Normal Inspection Extremity: Positive for: Normal ROM, Pedal Edema, Other (Amputation fingers left hand) Neurologic/Psych: Positive for: Alert, Oriented - Laboratory Results Result Diagrams: 07/28/16 09:54 07/28/16 09:54 Disposition - Clinical Impression Clinical Impression: Acute bronchitis with chronic obstructive pulmonary disease (COPD), Anemia - Patient ED Disposition Is Patient to be Admitted: Yes - Disposition Disposition Time: 10:55 Condition: FAIR - Pt Status Changed To: Hospital Disposition Of: Observation - POA Present On Arrival: None
[2016-07-28 10:06] LABS: BASO # 0.1 K/uL (0.0-0.2); BASO % 0.7 % (0.0-2.0); EOS # 0.3 K/uL (0.0-0.7); EOS % 2.5 % (0.0-4.0); HEMATOCRIT 25.7 % (35.0-51.0); LYMPH # 1.9 K/uL (1.0-4.3); LYMPH % 14.8 % (20.0-40.0); MEAN CELL VOLUME 74.6 fl (80.0-94.0); MEAN CORPUSCULAR HEMOGLOBIN 22.3 pg (27.0-31.0); MEAN CORPUSCULAR HGB CONC 29.9 g/dL (33.0-37.0); MEAN PLATELET VOLUME 8.2 fl (7.2-11.7); MONO # 1.4 K/uL (0.0-0.8); MONO % 10.8 % (0.0-10.0); NEUT % 71.2 % (50.0-75.0); PLATELET COUNT 194 K/uL (130-400); RED CELL DISTRIBUTION WIDTH 26.3 % (11.5-14.5); WHITE BLOOD COUNT 12.7 K/uL (4.8-10.8)
[2016-07-28 10:08] LABS: ALB/GLOB RATIO 1.2 (1.0-2.1); ALKALINE PHOSPHATASE 36 U/L (38-126); ALT/SGPT 36 U/L (21-72); AST/SGOT 30 U/L (17-59); BILIRUBIN,TOTAL 0.4 mg/dl (0.2-1.3); BLOOD UREA NITROGEN 23 mg/dl (9-20); CALCIUM 8.5 mg/dL (8.4-10.2); CARBON DIOXIDE 24 mmol/L (22-30); CHLORIDE 105 mmol/L (98-107); GFR AFRICAN-AMERICAN > 60; GLUCOSE,RANDOM 105 mg/dL (75-110); POTASSIUM 4.5 MMOL/L (3.6-5.0); SODIUM 137 mmol/l (132-148); TOTAL PROTEIN 6.5 G/DL (6.3-8.2)
[2016-07-28] MEDS ORDERED: Azithromycin 500 MG in Sodium Chloride 0.9% 250 ML IVPB STA (10:35)
[2016-07-28] MEDS ORDERED: Naproxen 500 MG TAB PO STA (10:55)
--- NOTE | 2016-07-28 11:05 | RAD ---
HISTORY: sob COMPARISON: Chest x-ray performed 07/07/16 TECHNIQUE: Chest PA and lateral FINDINGS: LUNGS: No focal consolidation. Please note that chest x-ray has limited sensitivity for the detection of pulmonary masses. PLEURA: No significant pleural effusion identified. No definite pneumothorax . CARDIOVASCULAR: The cardiomediastinal silhouette appears within normal limits of size. OSSEOUS STRUCTURES: No acute osseous abnormality identified. VISUALIZED UPPER ABDOMEN: Unremarkable. OTHER FINDINGS: None. IMPRESSION: No focal consolidation, significant pleural effusion, or definite pneumothorax identified.
[2016-07-28 11:09] LABS: EOSINOPHIL 5 % (0-7); NEUTROPHIL 69 % (42-75); TOTAL CELLS COUNTED 100
[2016-07-28 12:09] LABS: VENOUS BLOOD GAS BASE EXCESS 1.9 mmol/L (0.0-2.0); VENOUS BLOOD GAS PCO2 45 mmHg (40-60); VENOUS BLOOD PH 7.39 (7.32-7.43)
[2016-07-28] MEDS ORDERED: Sodium Chloride 3% for Inhalation 4 ML VIAL.NEB IH PRN (14:58)
[2016-07-28] MEDS: Azithromycin 500 MG in Sodium Chloride 0.9% 250 ML IVPB SCH (15:30)
[2016-07-28] MEDS: Digoxin 125 mcg (0.125 mg) Tab PO SCH (16:00)
[2016-07-28] MEDS: Tiotropium 18 mcg Cap For Inhalation INH SCH (16:00)
[2016-07-28] MEDS ORDERED: Pneumococcal 23-Valent Vaccine IM ONE (16:03)
--- NOTE | 2016-07-28 17:55 | CARD ---
APPROVED REPORT EKG Measurement Heart [id number] <Conclusion> Normal sinus rhythm with sinus arrhythmia Left ventricular hypertrophy with repolarization abnormality Abnormal ECG
[2016-07-28] MEDS: methylPREDNISolone 40 MG in Sodium Chloride 0.9% 50 ML IV SCH (18:00)
[2016-07-28] MEDS: Albuterol-Ipratrop 3 mg / 0.5 (3 ml) UD INH SCH (19:28)
[2016-07-28 20:41] LABS: IRON 20 ug/dL (49-181)
[2016-07-29] MEDS: methylPREDNISolone 40 MG in Sodium Chloride 0.9% 50 ML IV SCH ×3 (00:35→17:02)
[2016-07-29] MEDS: Benzocaine/Menthol (Cepacol) Lozenge PO PRN (06:19)
[2016-07-29] MEDS: Albuterol-Ipratrop 3 mg / 0.5 (3 ml) UD INH SCH ×3 (07:20→19:06)
[2016-07-29 07:58] LABS: HEMATOCRIT 26.6 % (35.0-51.0); MEAN CELL VOLUME 73.4 fl (80.0-94.0); MEAN CORPUSCULAR HEMOGLOBIN 22.5 pg (27.0-31.0); MEAN CORPUSCULAR HGB CONC 30.6 g/dL (33.0-37.0); RED CELL DISTRIBUTION WIDTH 26.4 % (11.5-14.5); WHITE BLOOD COUNT 13.1 K/uL (4.8-10.8)
[2016-07-29 08:34] LABS: BLOOD UREA NITROGEN 29 mg/dl (9-20); CALCIUM 8.7 mg/dL (8.4-10.2); CARBON DIOXIDE 25 mmol/L (22-30); CHLORIDE 103 mmol/L (98-107); GFR AFRICAN-AMERICAN > 60; GLUCOSE,RANDOM 129 mg/dL (75-110); POTASSIUM 4.6 MMOL/L (3.6-5.0); SODIUM 137 mmol/l (132-148)
[2016-07-29] MEDS: Digoxin 125 mcg (0.125 mg) Tab PO SCH (08:43)
[2016-07-29] MEDS: Tiotropium 18 mcg Cap For Inhalation INH SCH (08:45)
[2016-07-29 09:05] LABS: ALB/GLOB RATIO 1.2 (1.0-2.1); ALKALINE PHOSPHATASE 48 U/L (38-126); ALT/SGPT 30 U/L (21-72); AST/SGOT 22 U/L (17-59); BILIRUBIN,TOTAL 0.3 mg/dl (0.2-1.3); BLOOD UREA NITROGEN 30 mg/dl (9-20); CALCIUM 8.9 mg/dL (8.4-10.2); CARBON DIOXIDE 23 mmol/L (22-30); CHLORIDE 104 mmol/L (98-107); GFR AFRICAN-AMERICAN > 60; GLUCOSE,RANDOM 200 mg/dL (75-110); POTASSIUM 4.8 MMOL/L (3.6-5.0); SODIUM 136 mmol/l (132-148); TOTAL PROTEIN 7.3 G/DL (6.3-8.2)
[2016-07-29 09:13] LABS: HEMATOCRIT 28.7 % (35.0-51.0); MEAN CORPUSCULAR HEMOGLOBIN 22.5 pg (27.0-31.0); MEAN CORPUSCULAR HGB CONC 30.4 g/dL (33.0-37.0); RED CELL DISTRIBUTION WIDTH 26.4 % (11.5-14.5); WHITE BLOOD COUNT 15.4 K/uL (4.8-10.8)
[2016-07-29] MEDS: Azithromycin 500 MG in Sodium Chloride 0.9% 250 ML IVPB SCH (13:25)
[2016-07-30] MEDS: methylPREDNISolone 40 MG in Sodium Chloride 0.9% 50 ML IV SCH (01:00)
[2016-07-30] MEDS: Albuterol-Ipratrop 3 mg / 0.5 (3 ml) UD INH SCH ×3 (08:00→19:43)
--- NOTE | 2016-07-30 08:14 | PN ---
DATE: 07/30/2016 The patient seen and examined. Interim events noted. The patient remains in progressive care unit o n telemetry monitoring. The patient feels okay. Denies any specific complaint. No chest pain. No shortness of breath. ____ has improved. The patient is able to ambulate and take ____. PHYSICAL EXAMINATION: GENERAL: The patient is in no acute distress. VITAL SIGNS: Stable. HEART: S1, S2 normal, regular. LUNGS: Good ____ improving bilateral air exchange. No rhonchi, no rales, no wheezing. ABDOMEN: Soft, nontender, no organomegaly, no fluid. Bowel sounds are plus. EXTREMITIES: No edema, no calf swelling, no tenderness, no acute ischemia. CENTRAL NERVOUS SYSTEM: Essentially unchanged. DIAGNOSTIC DATA: Available diagnostic data reviewed. Telemetry monitoring does not reveal significa nt arrhythmias. Overall, patient's general medical condition is stable and improving. PLAN: As ordered. Hieu Moreno MD cc: [id number] TT: 07/30/2016 08:13:47 Confirmation # [id number] Dictation # [id number]
[2016-07-30] MEDS: Tiotropium 18 mcg Cap For Inhalation INH SCH (09:00)
[2016-07-30] MEDS: Digoxin 125 mcg (0.125 mg) Tab PO SCH (09:01)
[2016-07-30] MEDS: methylPREDNISolone 20 MG in Sodium Chloride 0.9% 50 ML IV SCH ×2 (09:02→17:02)
[2016-07-30] MEDS: Azithromycin 500 MG in Sodium Chloride 0.9% 250 ML IVPB SCH (09:19)
[2016-07-31] MEDS: methylPREDNISolone 20 MG in Sodium Chloride 0.9% 50 ML IV SCH (00:02)
[2016-07-31 05:02] LABS: HEMATOCRIT 27.3 % (35.0-51.0); MEAN CELL VOLUME 73.3 fl (80.0-94.0); MEAN CORPUSCULAR HEMOGLOBIN 21.9 pg (27.0-31.0); MEAN CORPUSCULAR HGB CONC 29.8 g/dL (33.0-37.0); RED CELL DISTRIBUTION WIDTH 25.9 % (11.5-14.5); WHITE BLOOD COUNT 15.3 K/uL (4.8-10.8)
[2016-07-31 05:21] LABS: ALB/GLOB RATIO 1.2 (1.0-2.1); ALKALINE PHOSPHATASE 47 U/L (38-126); ALT/SGPT 37 U/L (21-72); AST/SGOT 23 U/L (17-59); BILIRUBIN,TOTAL 0.2 mg/dl (0.2-1.3); BLOOD UREA NITROGEN 46 mg/dl (9-20); CALCIUM 9.3 mg/dL (8.4-10.2); CARBON DIOXIDE 22 mmol/L (22-30); CHLORIDE 100 mmol/L (98-107); GFR AFRICAN-AMERICAN > 60; GLUCOSE,RANDOM 135 mg/dL (75-110); SODIUM 132 mmol/l (132-148); TOTAL PROTEIN 7.1 G/DL (6.3-8.2)
[2016-07-31 05:32] LABS: POTASSIUM 5.4 MMOL/L (3.6-5.0)
[2016-07-31] MEDS: Albuterol-Ipratrop 3 mg / 0.5 (3 ml) UD INH SCH ×2 (07:50→13:19)
--- NOTE | 2016-07-31 08:37 | HP ---
CHIEF COMPLAINT: Shortness of breath. HISTORY OF PRESENT ILLNESS: This is a 60-year-old male, known case of COPD, who was having shortness of breath which did not improve with ____ treatment at home, so the patient was brought to Emergency Room and was admitted for further management. REVIEW OF SYSTEMS: Positive for cough and shortness of breath on exertion. Review of system otherwi se was negative for headache, dizziness, syncope, loss of consciousness, ____. Review of systems of all other ____ is unremarkable for ____.. PERSONAL HISTORY: The patient has history of smoking, no alcohol or substance abuse. MEDICATIONS: The patient is on multiple medication which is as per reconciliation sheet. ALLERGIES: The patient is not allergic to any medication. FAMILY HISTORY: Noncontributory. PHYSICAL EXAMINATION: GENERAL: Well-built, well-nourished 60-year-old male in no acute distress. VITAL SIGNS: Temperature afebrile, pulse ____, respirations 20, blood pressure 140/80. HEENT: Pupils reacting to light. NECK: No JVD, no thyromegaly, no ____, no adenopathy. ____ cough. HEART: S1, S2 normal, regular. No significant murmur, gallop or rub is heard. LUNGS: Show good bilateral air exchange, no rales or rhonchi, but patient does have prolonged expira tion and poor air exchange consistent with COPD exacerbation. ABDOMEN: Soft, nontender, no organomegaly, no fluid. Bowel sounds are plus. EXTREMITIES: No edema. No calf swelling. No tenderness. No acute ischemia. CENTRAL NERVOUS SYSTEM: Essentially unchanged. DIAGNOSTIC DATA: Available diagnostic data reviewed. Telemetry monitoring does not reveal significa nt arrhythmia. Other labs are acceptable except hemoglobin is 7.7. ADMITTING IMPRESSION: Acute exacerbation of chronic obstructive pulmonary disease, severe anemia. PLAN: As ordered. Case and plan discussed with the patient. Hieu Moreno MD cc: [id number] TT: 07/29/2016 09:56:47 tn
[2016-07-31] MEDS: Tiotropium 18 mcg Cap For Inhalation INH SCH (09:18)
[2016-07-31] MEDS: Digoxin 125 mcg (0.125 mg) Tab PO SCH (09:20)
[2016-07-31] MEDS: Azithromycin 500 MG in Sodium Chloride 0.9% 250 ML IVPB SCH (09:23)
[2016-07-31 09:24] VITALS: PULSE 102
[2016-07-31 12:33] VITALS: O2SAT 98
[2016-07-31] MEDS: Benzocaine/Menthol (Cepacol) Lozenge PO PRN (13:47)
[2016-07-31 15:43] VITALS: BP 177/75; PULSE 78; RESP 20; TEMP 98
--- NOTE | 2016-08-01 06:34 | PQF ANEMIA ---
This form is a permanent part of the medical record 07/31/16 , Please clarify the type of anemia: Documentation of anemia. H&H 7.7/25.7, MCV 74.6, MCHC 29.9, iron 20, % sat 6. On Ferrous sulfate. Clarification of your documentation is requested to better reflect the severity of illness and intensity of treatment of your patient. Indicators present [x] Anemia [] Drop in H&H from []___ to []___ [] Hypotension [] GI Bleed [] Transfusion(s) [] Acute bleed other sites [] Tachycardia [] Surgical Procedure Blood Loss (expected not a complication) Other:[] Location in the medical record that reflects the above clinical findings: [] Treatment Provided: [x] PHYSICIAN'S RESPONSE Based on your medical judgment of the clinical indicators outlined above, are you treating this patient for a known or suspected: [] Acute blood loss anemia [] Chronic blood loss anemia [] Acute on Chronic blood loss anemia [] Anemia due to malignancy [] Anemia due to chemotherapy or radiation therapy [] Anemia of Chronic Disease, please specify: [] [] Other, please indicate type of anemia []____ [] If Unable to Determine, please check the box, sign and date. Present On Admission (POA) Indicator: [] Present at the time of admission [] Not present at the time of admission [] Clinically Undetermined In responding to this query, please exercise your independent professional judgment. The fact that a question is asked does not imply that any particular answer is desired or expected. Thank you for your clarification on this documentation. If you have any questions please call:extension [phone] Medical Records Dept * Thank you, Eryn Mcwilliams RN CDMP [facility]
--- NOTE | 2016-08-01 06:37 | PQF GENQUE ---
This form is a permanent part of the medical record 07/31/16 , has documentation of a history of Asthma. If ruled in please clarify the type or rule out. Medication includes: Spiriva. Clarification of your documentation is requested to better reflect the severity of illness and intensity of treatment of your patient. Indicators present [] Specify: [] [] Specify: [] [] Specify: [] [] Specify: [] Location in the medical record that reflects the above clinical findings: [] Treatment Provided: [] PHYSICIAN'S RESPONSE 1. Please clarify type of asthma: Childhood Cough variant Exercise induced Late onset Mild intermittent Mild persistent Moderate persistent Severe persistent With bronchitis(please clarify acuity of bronchitis) With chronic lung disease (please document specific chronic lung disease) Other (please specify) Unable to determine Unknown 2. Please clarify acuity of asthma: Uncomplicated With exacerbation(acute) With status asthmaticus Other (please specify) Unable to determine Unknown Based on your medical judgment of the clinical indicators outlined above please clarify the following: [] Practitioner response [] If unable to determine, please check the box, sign and date. Present On Admission (POA) Indicator: [] Present at the time of admission [] Not present at the time of admission [] Clinically Undetermined In responding to this query, please exercise your independent professional judgment. The fact that a question is asked does not imply that any particular answer is desired or expected. Thank you for your clarification on this documentation. If you have any questions please call:extension [phone] * Thank you, Eryn Mcwilliams RN CDMP [facility]
--- NOTE | 2016-08-01 06:39 | PQF GENQUE ---
This form is a permanent part of the medical record 08/01/16 Dr. Moreno, ER has documentation of a history of atrial fibrillation. EKG: NSR with sinus arrhythmia, LVH with repolarization abnormality. Medication includes: Eliquis and Digoxin. Please clarify the type of atrial fibrillation if known. Clarification of your documentation is requested to better reflect the severity of illness and intensity of treatment of your patient. Indicators present [] Specify: [] [] Specify: [] [] Specify: [] [] Specify: [] Location in the medical record that reflects the above clinical findings: [] Treatment Provided: [] PHYSICIAN'S RESPONSE Based on your medical judgment of the clinical indicators outlined above please clarify the following: [] Practitioner response [] If unable to determine, please check the box, sign and date. Present On Admission (POA) Indicator: [] Present at the time of admission [] Not present at the time of admission [] Clinically Undetermined In responding to this query, please exercise your independent professional judgment. The fact that a question is asked does not imply that any particular answer is desired or expected. Thank you for your clarification on this documentation. If you have any questions please call:ext [phone] * Thank you, Eryn Mcwilliams RN [facility]
--- NOTE | 2016-08-01 06:41 | PQF GENQUE ---
This form is a permanent part of the medical record 08/01/16 Dr Moreno, The ER MD documented the following information with no mention of this diagnosis in your documentation. Please indicate in your next progress note and /or discharge summary your agreement or provide clarification that this diagnosis is not a current condition. Diagnosis: Acute Bronchitis Documented by: ER MD Admitted with sob, wheezing and productive cough. Temp 100 on admission. CXR: No consolidation, significant pleural effusion or definite pneumothorax. Medication includes Solumedrol->Prednisone, IVAB, Spiriva. Clarification of your documentation is requested to better reflect the severity of illness and intensity of treatment of your patient. Indicators present [] Specify: [] [] Specify: [] [] Specify: [] [] Specify: [] Location in the medical record that reflects the above clinical findings: [] Treatment Provided: [] PHYSICIAN'S RESPONSE Based on your medical judgment of the clinical indicators outlined above please clarify the following: [] Practitioner response [] If unable to determine, please check the box, sign and date. Present On Admission (POA) Indicator: [] Present at the time of admission [] Not present at the time of admission [] Clinically Undetermined In responding to this query, please exercise your independent professional judgment. The fact that a question is asked does not imply that any particular answer is desired or expected. Thank you for your clarification on this documentation. If you have any questions please call:ext [phone] * Thank you, Eryn Mcwilliams RN CD[facility]
== END 2016-07-31 16:00 | disposition home or self-care (01) | DRG 88 ==
LOC: H.ER 09:11 → H.ERHOLD 10:53 → H.TEL 13:59 → OBSVTOIN 07-29 20:39
PROVIDERS: ADMIT Internal Medicine; ATTEND Internal Medicine
PROC: 3E0F73Z Introduction of Anti-inflammatory into Respiratory Tract, Via Natural or Artificial Opening (ICD-10-PCS; principal; 2016-07-29)
PROC: 3E0234Z Introduction of Serum, Toxoid and Vaccine into Muscle, Percutaneous Approach (ICD-10-PCS; 2016-07-29)
DX: J44.0 Chronic obstructive pulmonary disease with (acute) lower respiratory infection (principal); I48.2 Chronic atrial fibrillation; I10 Essential (primary) hypertension; J20.9 Acute bronchitis, unspecified; J44.1 Chronic obstructive pulmonary disease with (acute) exacerbation; D63.8 Anemia in other chronic diseases classified elsewhere; E78.5 Hyperlipidemia, unspecified; E78.00 Pure hypercholesterolemia, unspecified; F41.9 Anxiety disorder, unspecified; Z23 Encounter for immunization; Z79.01 Long term (current) use of anticoagulants; Z79.82 Long term (current) use of aspirin; Z86.73 Personal history of transient ischemic attack (TIA), and cerebral infarction without residual deficits; Z87.891 Personal history of nicotine dependence

== ENCOUNTER 2016-08-01 23:06 | Emergency (ER) | payer MEDICAID ==
[2016-08-01 23:06] VITALS: PULSE 102
[2016-08-01 23:28] VITALS: BP 178/99; PULSE 104; RESP 16; TEMP 98.5; O2SAT 100
--- NOTE | 2016-08-01 23:44 | ED PDOC ---
HPI: General Adult Time Seen by Provider: 08/01/16 23:41 Chief Complaint (Nursing): Lower Extremity Problem/Injury Chief Complaint (Provider): misc History Per: Patient History/Exam Limitations: no limitations Additional Complaint(s): 60 yo M in ED for eval of lower leg swelling*edema) -though he has compression stockings placed and complaining of asthma-though no coughing no difficulty in speech. pt in ED singing. pt looks well and nontoxic Past Medical History Reviewed: Historical Data, Nursing Documentation, Vital Signs Vital Signs: Last Vital Signs Temp 98.5 F 08/01/16 23:24 Pulse 104 H 08/01/16 23:24 Resp 16 08/01/16 23:24 BP 178/99 H 08/01/16 23:24 Pulse Ox 100 08/01/16 23:44 - Medical History PMH: Anemia, Anxiety, Arthritis, Asthma, Atrial Fibrillation, COPD, CVA, HTN, Hypercholesterolemia, Hyperlipidemia Denies: Chronic Kidney Disease - Surgical History Surgical History: Denies: Coronary Stent - Family History Family History: States: [place] (Mother), CAD (Mother) - Immunization History Hx Tetanus Toxoid Vaccination: No Hx Influenza Vaccination: No Hx Pneumococcal Vaccination: No - Home Medications Home Medications: Ambulatory Orders Medication Instructions Recorded Docusate [Colace] 100 mg PO BID #60 cap 06/01/16 Omeprazole 40 mg PO DAILY #30 capsule. 06/01/16 amLODIPine [Norvasc] 10 mg PO DAILY #30 tab 06/01/16 Aspirin [Ecotrin] 81 mg PO DAILY 06/15/16 Apixaban [Eliquis] 5 mg PO BID #60 07/31/16 Azithromycin [Zithromax Tri-Thomas] 500 mg PO DAILY #5 tablet 07/31/16 Digoxin [Lanoxin] 125 mcg PO DAILY #30 07/31/16 Ferrous Sulfate [Feosol] 325 mg PO BID #60 tab 07/31/16 Furosemide [Lasix] 20 mg PO DAILY #30 tab 07/31/16 Tiotropium [Spiriva] 18 mcg INH DAILY #1 dev 07/31/16 Valsartan [Diovan] 320 mg PO DAILY #30 07/31/16 predniSONE [predniSONE Tab] 20 mg PO DAILY #30 tab 07/31/16 Albuterol HFA [Ventolin HFA 90 2 puff IH Q6 #200 puff 08/01/16 mcg/actuation (8 g)] Naproxen 500 mg PO BID #20 tablet. 08/01/16 - Allergies Allergies/Adverse Reactions: Allergies Allergy/AdvReac Type Severity Reaction Status Date / Time No Known Allergies Allergy Verified 08/01/16 23:24 Review of Systems ROS Statement: Except As Marked, All Systems Reviewed And Found Negative Musculoskeletal: Positive for: Leg Pain Physical Exam - Reviewed Nursing Documentation Reviewed: Yes Vital Signs Reviewed: Yes - Physical Exam Appears: Positive for: Well, Non-toxic, No Acute Distress Head Exam: Positive for: ATRAUMATIC, NORMAL INSPECTION, NORMOCEPHALIC Skin: Positive for: Normal Color, Warm, DRY Cardiovascular/Chest: Positive for: Regular Rate, Rhythm Respiratory: Positive for: CNT, Normal Breath Sounds Extremity: Negative for: Pedal Edema, Swelling Neurologic/Psych: Positive for: Alert, Oriented - ECG O2 Sat by Pulse Oximetry: 100 Medical Decision Making Medical Decision Making: pt is very stable, with stable gait d.c with Rx for naproxen for LE pain and albuterol for asthma. Disposition - Clinical Impression Clinical Impression: History of asthma, Leg edema - Patient ED Disposition Is Patient to be Admitted: No Counseled Patient/Family Regarding: Need For Followup, Rx Given - Disposition Referrals: [facility] [Outside] [facility] [Outside] Disposition: Routine/Home Disposition Time: 23:51 Condition: STABLE Prescriptions: Albuterol HFA [Ventolin HFA 90 mcg/actuation (8 g)] 2 puff IH Q6 #200 puff Naproxen 500 mg PO BID #20 tablet. Instructions: Leg Edema (ED)
== END 2016-08-01 23:53 | disposition home or self-care (01) ==
LOC: H.ER 23:06
DX: R60.0 Localized edema (principal); J45.909 Unspecified asthma, uncomplicated; E78.00 Pure hypercholesterolemia, unspecified; F41.9 Anxiety disorder, unspecified; I10 Essential (primary) hypertension; J44.9 Chronic obstructive pulmonary disease, unspecified; Z79.01 Long term (current) use of anticoagulants; Z79.82 Long term (current) use of aspirin; Z86.73 Personal history of transient ischemic attack (TIA), and cerebral infarction without residual deficits

== ENCOUNTER 2016-08-10 21:15 | Inpatient (IN) | payer MEDICAID ==
[2016-08-10 21:19] VITALS: BMI 22.0
[2016-08-10 21:48] LABS: HEMOGLOBIN 7.6 g/dL (12.0-18.0); MEAN CELL VOLUME 71.4 fl (80.0-94.0); MEAN CORPUSCULAR HEMOGLOBIN 21.7 pg (27.0-31.0); MEAN CORPUSCULAR HGB CONC 30.3 g/dL (33.0-37.0); RBC 3.5 Mil/uL (4.40-5.90); RED CELL DISTRIBUTION WIDTH 26.9 % (11.5-14.5); WHITE BLOOD COUNT 11.4 K/uL (4.8-10.8)
--- NOTE | 2016-08-10 21:48 | ED PDOC ---
HPI: SOB/CHF/COPD Time Seen by Provider: 08/10/16 21:30 Chief Complaint (Nursing): Shortness Of Breath Chief Complaint (Provider): shortness of breath History Per: Patient History/Exam Limitations: no limitations Onset/Duration Of Symptoms: Days (chronic ) Additional Complaint(s): Patient complains of shortness of breath and bilateral leg pain. The patient has chronic leg pain and was seen in the emergency room yesterday for the same reason. He is using an inhaler at home, without relief. Pt states today he also has some chest pressure. PT denies any drug use. PMD: none provided Past Medical History Reviewed: Historical Data, Nursing Documentation, Vital Signs Vital Signs: Last Vital Signs Temp 98.5 F 08/10/16 21:27 Pulse 107 H 08/10/16 21:27 Resp 16 08/10/16 21:31 BP 145/72 08/10/16 21:27 Pulse Ox 93 L 08/10/16 21:59 - Medical History PMH: Anemia, Anxiety, Arthritis, Asthma, Atrial Fibrillation, COPD, CVA, Depression, HTN, Hypercholesterolemia, Hyperlipidemia Denies: Diabetes, Hepatitis, HIV, Chronic Kidney Disease, Seizures, Sexually Transmitted Disease - Surgical History Surgical History: No Surg Hx Denies: Coronary Stent - Family History Family History: States: [place] (Mother), CAD (Mother) - Social History Current smoker - smoking cessation education provided: Yes (>10 cigarettes/day) Alcohol: None Drugs: Other (substance use ) - Immunization History Hx Tetanus Toxoid Vaccination: No Hx Influenza Vaccination: No Hx Pneumococcal Vaccination: No - Home Medications Home Medications: Ambulatory Orders Medication Instructions Recorded Omeprazole 40 mg PO DAILY #30 capsule. 06/01/16 amLODIPine [Norvasc] 10 mg PO DAILY #30 tab 06/01/16 Aspirin [Ecotrin] 81 mg PO DAILY 06/15/16 Apixaban [Eliquis] 5 mg PO BID #60 07/31/16 Azithromycin [Zithromax Tri-Thomas] 500 mg PO DAILY #5 tablet 07/31/16 Digoxin [Lanoxin] 125 mcg PO DAILY #30 07/31/16 Ferrous Sulfate [Feosol] 325 mg PO BID #60 tab 07/31/16 Furosemide [Lasix] 20 mg PO DAILY #30 tab 07/31/16 Tiotropium [Spiriva] 18 mcg INH DAILY #1 dev 07/31/16 Valsartan [Diovan] 320 mg PO DAILY #30 07/31/16 predniSONE [predniSONE Tab] 20 mg PO DAILY #30 tab 07/31/16 Albuterol HFA [Ventolin HFA 90 2 puff IH Q6 #200 puff 08/01/16 mcg/actuation (8 g)] Naproxen 500 mg PO BID #20 tablet. 08/01/16 Docusate [Colace] 100 mg PO BID PRN 08/02/16 Benztropine [Cogentin] 1 mg PO HS #30 tab 08/09/16 Haloperidol [Haldol] 10 mg PO HS #30 tab 08/09/16 traZODone [Desyrel] 50 mg PO HS #30 tab 08/09/16 - Allergies Allergies/Adverse Reactions: Allergies Allergy/AdvReac Type Severity Reaction Status Date / Time No Known Allergies Allergy Verified 08/10/16 21:18 Review of Systems ROS Statement: Except As Marked, All Systems Reviewed And Found Negative Respiratory: Positive for: Shortness of Breath Musculoskeletal: Positive for: Leg Pain (bilateral leg pain) Physical Exam - Reviewed Nursing Documentation Reviewed: Yes Vital Signs Reviewed: Yes - Physical Exam Appears: Positive for: Well, Non-toxic, No Acute Distress Head Exam: Positive for: ATRAUMATIC, NORMAL INSPECTION, NORMOCEPHALIC Skin: Positive for: Normal Color, Warm, Dry Eye Exam: Positive for: Normal appearance ENT: Positive for: Normal ENT Inspection Neck: Positive for: Normal Cardiovascular/Chest: Positive for: Regular Rate, Rhythm. Negative for: Gallop , Murmur Respiratory: Positive for: Wheezing (diffuse wheezing ) Gastrointestinal/Abdominal: Positive for: Normal Exam, Bowel Sounds, Soft. Negative for: Tenderness, Distended, Guarding Neurologic/Psych: Positive for: Alert, Oriented - Laboratory Results Result Diagrams: 08/10/16 21:45 08/10/16 21:45 - ECG O2 Sat by Pulse Oximetry: 93 (RA) Pulse Ox Interpretation: Normal Medical Decision Making Medical Decision Making: Impression: shortness of breath and bilateral leg pain Plan: * ED EKG * COMP Metabolic Panel Stat * Troponin I Stat * CBC Stat * Chest Portable [RAD] Stat 2220 (+) troponin, discussed with Dr. Snow, additional labs placed. Pt moved to room in the main ER. Discussed with Dr. Alan for admission. Scribe Attestation: Documented by Yuliana Ridley, acting as a scribe for Oksana Haas PA-C. Provider Scribe Attestation: All medical record entries made by the Scribe were at my direction and personally dictated by me. I have reviewed the chart and agree that the record accurately reflects my personal performance of the history, physical exam, medical decision making, and the department course for this patient. I have also personally directed, reviewed, and agree with the discharge instructions and disposition. Disposition - Clinical Impression Clinical Impression: NSTEMI (non-ST elevated myocardial infarction) - Disposition Disposition Time: 22:32 Condition: STABLE
[2016-08-10 22:04] LABS: ALB/GLOB RATIO 1.2 (1.0-2.1); ALBUMIN 3.3 g/dL (3.5-5.0); ALT/SGPT 51 U/L (21-72); AST/SGOT 45 U/L (17-59); BLOOD UREA NITROGEN 24 mg/dl (9-20); CALCIUM 8.9 mg/dL (8.4-10.2); GFR AFRICAN-AMERICAN > 60; GFR NON-AFRICAN AMERICAN 57
[2016-08-10] MEDS ORDERED: Enoxaparin 80 mg Syringe SC STA (22:24)
[2016-08-10] MEDS ORDERED: Albuterol 0.083% Inhal Sol (2.5 mg/3 mL) UD INH STA (22:34)
--- NOTE | 2016-08-10 23:26 | CP.PCM.CON ---
History of Present Illness - History of Present Illness History of Present Illness: 60 y/o male h/o asthma CHF presented with SOB, chest pain and leg pain Stated Cardiac cath at [facility] in [place] and at [place] was OK Recent Venous doppler July 07 was negative H/O anemia Past Patient History - Infectious Disease Hx of Infectious Diseases: None - Past Medical History & Family History Past Medical History?: Yes - Past Social History Alcohol: None Drugs: Other (substance use ) - CARDIAC Hx Atrial Fibrillation: Yes Hx Hypercholesterolemia: Yes Hx Hypertension: Yes - PULMONARY Hx Asthma: Yes Hx Chronic Obstructive Pulmonary Disease (COPD): Yes - NEUROLOGICAL Hx Seizures: No - HEENT Hx Cataracts: Yes (sx) - RENAL Hx Chronic Kidney Disease: No - ENDOCRINE/METABOLIC Hx Endocrine Disorders: No - HEMATOLOGICAL/ONCOLOGICAL Hx Anemia: Yes Hx Human Immunodeficiency Virus (HIV): No - MUSCULOSKELETAL/RHEUMATOLOGICAL Hx Arthritis: Yes - GENITOURINARY/GYNECOLOGICAL Hx Sexually Transmitted Disorders: No - PSYCHIATRIC Hx Anxiety: Yes Hx Depression: Yes - SURGICAL HISTORY Hx Coronary Stent: No - ANESTHESIA Hx Anesthesia: Yes Hx Anesthesia Reactions: No Hx Malignant Hyperthermia: No Meds Allergies/Adverse Reactions: Allergies Allergy/AdvReac Type Severity Reaction Status Date / Time No Known Allergies Allergy Verified 08/10/16 21:18 Physical Exam - Head Exam Additional comments: pale conjunctiva - ENT Exam ENT Exam: Normal Exam - Neck Exam Neck exam: Positive for: Normal Inspection - Respiratory Exam Respiratory Exam: Rales - Cardiovascular Exam Cardiovascular Exam: REGULAR RHYTHM - Extremities Exam Extremities exam: Positive for: pedal edema Results - Vital Signs Recent Vital Signs: Last Vital Signs Temp 98.1 F 08/10/16 23:18 Pulse 96 H 08/10/16 23:18 Resp 16 08/10/16 23:18 BP 163/89 H 08/10/16 23:18 Pulse Ox 100 08/10/16 23:18 - Labs Result Diagrams: 08/10/16 21:45 08/10/16 21:45 Labs: Laboratory Results - last 24 hr 08/10/16 22:44 NT-Pro-B Natriuret Pep 456 - EKG Data EKG comments: NSR LVH with repo. changes Assessment & Plan - Assessment and Plan (Free Text) Assessment: Chest pain , borderline troponin Sever Anemia CHF Asthma Plan: Admit to Tele [facility]. Blood Start pepcid and lopressor Type and cross match Echo Drug screen ETOH level Cath reports from [place] and [facility] ASA if OCCult blood is negative
[2016-08-10] MEDS ORDERED: Famotidine 40 MG/5 ML PO SCH (23:45)
[2016-08-11] MEDS ORDERED: Albuterol-Ipratrop 3 mg / 0.5 (3 ml) UD INH PRN (03:09)
[2016-08-11 06:24] LABS: HEMOGLOBIN 8.4 g/dL (12.0-18.0); MEAN CELL VOLUME 72.2 fl (80.0-94.0); MEAN CORPUSCULAR HEMOGLOBIN 21.9 pg (27.0-31.0); MEAN CORPUSCULAR HGB CONC 30.3 g/dL (33.0-37.0); RBC 3.86 Mil/uL (4.40-5.90); RED CELL DISTRIBUTION WIDTH 26.6 % (11.5-14.5); WHITE BLOOD COUNT 10.3 K/uL (4.8-10.8)
[2016-08-11 06:55] LABS: BLOOD UREA NITROGEN 24 mg/dl (9-20); CALCIUM 8.9 mg/dL (8.4-10.2); GFR AFRICAN-AMERICAN > 60; GFR NON-AFRICAN AMERICAN > 60
[2016-08-11] MEDS ORDERED: Patient's Own Med (Omeprazole [Omeprazole] 40 MG) PO SCH (09:00)
[2016-08-11] MEDS ORDERED: NAPROXEN 500 MG PO SCH (09:00)
[2016-08-11] MEDS ORDERED: Pantoprazole 40 mg EC Tab PO SCH (09:00)
[2016-08-11] MEDS: Albuterol HFA 90 mcg/actuation (8 g) IH SCH ×3 (09:05→21:20)
[2016-08-11] MEDS: Tiotropium 18 mcg Cap For Inhalation INH SCH (09:07)
[2016-08-11] MEDS: Digoxin 125 mcg (0.125 mg) Tab PO SCH (09:08)
[2016-08-11] MEDS: Naproxen 500 MG TAB PO SCH ×2 (09:09→21:19)
--- NOTE | 2016-08-11 09:27 | RAD ---
HISTORY: SOB COMPARISON: 07/28/2016 FINDINGS: LUNGS: The lungs are hyperinflated and there is peribronchial thickening with chronic changes in both lungs. There is a linear scar in the left mid lung. No focal consolidation. PLEURA: No significant pleural effusion identified, no pneumothorax apparent. CARDIOVASCULAR: Normal. OSSEOUS STRUCTURES: No significant abnormalities. VISUALIZED UPPER ABDOMEN: Normal. OTHER FINDINGS: None. IMPRESSION: No active pulmonary disease. COPD.
[2016-08-11] MEDS: methylPREDNISolone 40 MG in Sodium Chloride 0.9% 50 ML IVPB SCH ×2 (10:30→21:41)
[2016-08-11] MEDS: Fluticasone-Salmeterol 250-50mcg Diskus IH SCH ×2 (10:30→21:30)
[2016-08-11 10:35] LABS: IRON 27 ug/dL (49-181)
[2016-08-11 10:45] LABS: % IRON SATURATION 9 % (20-55); TOTAL IRON BINDING CAPACITY 311 ug/dL (250-450)
[2016-08-11 11:02] LABS: FERRITIN 47.5 ng/mL
--- NOTE | 2016-08-11 13:29 | CP.PCM.PN ---
Subjective - Date & Time of Evaluation Date of Evaluation: 08/11/16 Time of Evaluation: 13:26 - Subjective Subjective: SOB improved No C/P Preliminary Echo review revealed severely depressed EF Objective - Vital Signs/Intake and Output Vital Signs (last 24 hours): Temp Pulse Resp BP Pulse Ox 97.7 F 68 18 157/76 H 96 08/11/16 12:00 08/11/16 12:00 08/11/16 12:00 08/11/16 12:00 08/11/16 12:00 - Medications Medications: Current Medications Albuterol (Ventolin Hfa 90 Mcg/Actuation (8 G)) 2 puff IH Q6 [facility] Last Admin: 08/11/16 09:05 Dose: 2 puff Albuterol/Ipratropium (Duoneb 3 Mg/0.5 Mg (3 Ml) Ud) 3 ml INH RQ6 PRN PRN Reason: Shortness of Breath Amlodipine Besylate (Norvasc) 10 mg PO DAILY [facility] Last Admin: 08/11/16 09:06 Dose: 10 mg Apixaban (Eliquis) 5 mg PO BID [facility] PRN Reason: Protocol Last Admin: 08/11/16 09:06 Dose: 5 mg Aspirin (Aspirin) 325 mg PO DAILY [facility] Last Admin: 08/11/16 09:13 Dose: 325 mg Benztropine Mesylate (Cogentin) 1 mg PO HS [facility] Digoxin (Lanoxin) 0.125 mg PO DAILY [facility] Last Admin: 08/11/16 09:08 Dose: 0.125 mg Docusate Sodium (Colace) 100 mg PO BID PRN PRN Reason: Constipation Famotidine (Pepcid) 20 mg PO BID [facility] Last Admin: 08/11/16 09:05 Dose: 20 mg Ferrous Sulfate (Feosol) 325 mg PO BID [facility] Last Admin: 08/11/16 09:08 Dose: 325 mg Furosemide (Lasix) 20 mg PO DAILY [facility] Last Admin: 08/11/16 09:07 Dose: 20 mg Haloperidol (Haldol) 10 mg PO HS [facility] Methylprednisolone 40 mg/ (Sodium Chloride) 50 mls @ 100 mls/hr IVPB Q12 [facility] Last Admin: 08/11/16 10:30 Dose: 100 mls/hr Metoprolol Tartrate (Lopressor) 12.5 mg PO Q12 [facility] Last Admin: 08/11/16 09:07 Dose: 12.5 mg Naproxen (Naproxen) 500 mg PO Q12 [facility] Last Admin: 08/11/16 09:09 Dose: 500 mg Fluticasone/Salmeterol (Advair Diskus 250/50) 1 puff IH Q12 [facility] Last Admin: 08/11/16 10:30 Dose: 1 puff Tiotropium [place] (Spiriva) 18 mcg INH DAILY [facility] Last Admin: 08/11/16 09:07 Dose: 18 mcg Trazodone HCl (Desyrel) 50 mg PO HS [facility] Valsartan (Diovan) 320 mg PO DAILY [facility] Last Admin: 08/11/16 09:09 Dose: 320 mg - Labs Labs: 08/11/16 05:00 08/11/16 05:00 - Head Exam Additional comments: Pale conjunctiva - ENT Exam ENT Exam: Mucous Membranes Moist - Neck Exam Neck Exam: Normal Inspection - Respiratory Exam Respiratory Exam: Rhonchi - Cardiovascular Exam Cardiovascular Exam: REGULAR RHYTHM - GI/Abdominal Exam GI & Abdominal Exam: Normal Bowel Sounds - Extremities Exam Extremities Exam: Pedal Edema Assessment and Plan - Assessment and Plan (Free Text) Assessment: chest pain R/O NSTEMI CHF Asthma Anemia Plan: Cont Albuterol (Ventolin Hfa 90 Mcg/Actuation (8 G)) 2 puff IH Q6 [facility] Last Admin: 08/11/16 09:05 Dose: 2 puff Albuterol/Ipratropium (Duoneb 3 Mg/0.5 Mg (3 Ml) Ud) 3 ml INH RQ6 PRN PRN Reason: Shortness of Breath Amlodipine Besylate (Norvasc) 10 mg PO DAILY [facility] Last Admin: 08/11/16 09:06 Dose: 10 mg Apixaban (Eliquis) 5 mg PO BID [facility] PRN Reason: Protocol Last Admin: 08/11/16 09:06 Dose: 5 mg Aspirin (Aspirin) 325 mg PO DAILY [facility] Last Admin: 08/11/16 09:13 Dose: 325 mg Benztropine Mesylate (Cogentin) 1 mg PO HS [facility] Digoxin (Lanoxin) 0.125 mg PO DAILY [facility] Last Admin: 08/11/16 09:08 Dose: 0.125 mg Docusate Sodium (Colace) 100 mg PO BID PRN PRN Reason: Constipation Famotidine (Pepcid) 20 mg PO BID [facility] Last Admin: 08/11/16 09:05 Dose: 20 mg Ferrous Sulfate (Feosol) 325 mg PO BID [facility] Last Admin: 08/11/16 09:08 Dose: 325 mg Furosemide (Lasix) 20 mg PO DAILY [facility] Last Admin: 08/11/16 09:07 Dose: 20 mg Haloperidol (Haldol) 10 mg PO HS [facility] Methylprednisolone 40 mg/ (Sodium Chloride) 50 mls @ 100 mls/hr IVPB Q12 [facility] Last Admin: 08/11/16 10:30 Dose: 100 mls/hr Metoprolol Tartrate (Lopressor) 12.5 mg PO Q12 [facility] Last Admin: 08/11/16 09:07 Dose: 12.5 mg Naproxen (Naproxen) 500 mg PO Q12 [facility] Last Admin: 08/11/16 09:09 Dose: 500 mg Fluticasone/Salmeterol (Advair Diskus 250/50) 1 puff IH Q12 [facility] Last Admin: 08/11/16 10:30 Dose: 1 puff Tiotropium [place] (Spiriva) 18 mcg INH DAILY [facility] Last Admin: 08/11/16 09:07 Dose: 18 mcg Trazodone HCl (Desyrel) 50 mg PO HS [facility] Valsartan (Diovan) 320 mg PO DAILY [facility] Last Admin: 08/11/16 09:09 Dose: 320 mg Cath report from Leigh Ann was requested stat PT/PTT
[2016-08-11 14:41] LABS: INR 1.1 (0.9-1.2); PARTIAL THROMBOPLASTIN TIME 36.4 Seconds (25.6-37.1); PROTHROMBIN TIME 12.4 Seconds (9.8-13.1)
--- NOTE | 2016-08-11 18:26 | CARD ---
APPROVED REPORT EKG Measurement Heart [id number] <Conclusion> Sinus tachycardia Left ventricular hypertrophy with repolarization abnormality Abnormal ECG
--- NOTE | 2016-08-11 18:29 | CARD ---
APPROVED REPORT EKG Measurement Heart [id number] <Conclusion> Normal sinus rhythm Left ventricular hypertrophy with repolarization abnormality Abnormal ECG
--- NOTE | 2016-08-11 22:30 | CP.PCM.HP ---
History of Present Illness - History of Present Illness History of Present Illness: A 60 yrs old male with hx of HTN,HLD, COPD ,Smoker came with hx of SOB, wheezing at times has inhalers at home. on further questioning he notes he has had angiogram 3 months ago ,no sig CAD noted as per him. Patient complains of shortness of breath and bilateral leg pain. The patient has chronic leg pain and was seen in the emergency room yesterday for the same reason. He is using an inhaler at home, without relief. Pt states today he also has some chest pressure. PT denies any drug use. Present on Admission - Present on Admission Any Indicators Present on Admission: No Review of Systems - Constitutional Constitutional: absent: Chills, Fever, Headache, Weakness - Respiratory Respiratory: Cough, Dyspnea, Wheezing, Excessive Mucous Production, Change in Mucous Color. absent: Chest Congestion - Gastrointestinal Gastrointestinal: Heartburn. absent: Abdominal Pain, Constipation, Diarrhea, Dyspepsia, Dysphagia - Genitourinary Genitourinary: absent: Urinary Frequency - Musculoskeletal Musculoskeletal: Arthralgias, Limited Range of Motion. absent: Abnormal Gait, Myalgias, Stiffness, Tingling - Integumentary Integumentary: absent: Lesions, Rash, Sores - Neurological Neurological: absent: Paresthesias, Syncope - Psychiatric Psychiatric: absent: Behavioral Changes, Depression - Endocrine Endocrine: absent: Fatigue, Palpitations - Hematologic/Lymphatic Hematologic: absent: Easy Bleeding Past Patient History - Infectious Disease Hx of Infectious Diseases: None - Past Medical History & Family History Past Medical History?: Yes - Past Social History Smoking Status: Current Some Days Smoker - CARDIAC Hx Cardiac Disorders: Yes Hx Atrial Fibrillation: Yes Hx Hypercholesterolemia: Yes Hx Hypertension: Yes - PULMONARY Hx Respiratory Disorders: Yes Hx Asthma: Yes Hx Chronic Obstructive Pulmonary Disease (COPD): Yes - NEUROLOGICAL Hx Neurological Disorder: No Hx Seizures: No - HEENT Hx HEENT Problems: Yes Hx Cataracts: Yes - RENAL Hx Chronic Kidney Disease: No - ENDOCRINE/METABOLIC Hx Endocrine Disorders: No - HEMATOLOGICAL/ONCOLOGICAL Hx Blood Disorders: Yes Hx Anemia: Yes Hx Human Immunodeficiency Virus (HIV): No - INTEGUMENTARY Hx Dermatological Problems: No - MUSCULOSKELETAL/RHEUMATOLOGICAL Hx Musculoskeletal Disorders: Yes Hx Arthritis: Yes Hx Falls: No - GASTROINTESTINAL Hx Gastrointestinal Disorders: No - GENITOURINARY/GYNECOLOGICAL Hx Genitourinary Disorders: No Hx Sexually Transmitted Disorders: No - PSYCHIATRIC Hx Psychophysiologic Disorder: Yes Hx Anxiety: Yes Hx Depression: Yes - SURGICAL HISTORY Hx Surgeries: Yes Hx Coronary Stent: No Other/Comment: left hand sx 2nd 3rd digit removal - ANESTHESIA Hx Anesthesia: Yes Hx Anesthesia Reactions: No Hx Malignant Hyperthermia: No Meds Allergies/Adverse Reactions: Allergies Allergy/AdvReac Type Severity Reaction Status Date / Time No Known Allergies Allergy Verified 08/10/16 21:18 Physical Exam - Constitutional Appears: No Acute Distress - Head Exam Head Exam: ATRAUMATIC, NORMAL INSPECTION - Eye Exam Eye Exam: EOMI, Normal appearance, PERRL - ENT Exam ENT Exam: Mucous Membranes Moist - Neck Exam Neck exam: Positive for: Normal Inspection. Negative for: Lymphadenopathy, Tenderness - Respiratory Exam Respiratory Exam: Prolonged Expiratory Phase, Rales, Wheezes - Cardiovascular Exam Cardiovascular Exam: REGULAR RHYTHM, +S1, +S2, Systolic Murmur - GI/Abdominal Exam GI & Abdominal Exam: Normal Bowel Sounds, Soft. absent: Tenderness - Extremities Exam Extremities exam: Positive for: normal inspection, pedal edema, pedal pulses present. Negative for: tenderness - Back Exam Back exam: NORMAL INSPECTION - Neurological Exam Neurological exam: Alert, CN II-XII Intact - Psychiatric Exam Psychiatric exam: Normal Affect, Normal Mood - Skin Skin Exam: Intact, Normal Color Results - Vital Signs Recent Vital Signs: Last Vital Signs Temp 97.8 F 08/11/16 21:00 Pulse 93 H 08/11/16 21:17 Resp 20 08/11/16 21:00 BP 160/67 H 08/11/16 21:17 Pulse Ox 95 08/11/16 21:00 - Labs Result Diagrams: 08/11/16 05:00 08/11/16 05:00 Labs: Laboratory Results - last 24 hr 08/10/16 08/11/16 08/11/16 22:44 05:00 05:00 WBC 10.3 RBC 3.86 L Hgb 8.4 L Hct 27.8 L MCV 72.2 L MCH 21.9 L MCHC 30.3 L RDW 26.6 H Plt Count 232 PT INR APTT Sodium 139 Potassium 4.1 Chloride 107 Carbon Dioxide 27 Anion Gap 10 BUN 24 H Creatinine 1.1 Est GFR ( Amer) > 60 Est GFR (Non-Af Amer) > 60 Random Glucose 98 Calcium 8.9 Iron TIBC % Saturation Ferritin Troponin I NT-Pro-B Natriuret Pep 456 Vitamin B12 TSH 3rd Generation 0.73 Alcohol, Quantitative 08/11/16 08/11/16 08/11/16 05:50 06:00 06:00 WBC RBC Hgb Hct MCV MCH MCHC RDW Plt Count PT INR APTT Sodium Potassium Chloride Carbon Dioxide Anion Gap BUN Creatinine Est GFR ( Amer) Est GFR (Non-Af Amer) Random Glucose Calcium Iron 27 L TIBC 311 % Saturation 9 L Ferritin 47.5 Troponin I 0.1290 H* NT-Pro-B Natriuret Pep Vitamin B12 552 TSH 3rd Generation Alcohol, Quantitative 08/11/16 08/11/16 08/11/16 12:22 14:15 14:15 WBC RBC Hgb Hct MCV MCH MCHC RDW Plt Count PT 12.4 INR 1.1 APTT 36.4 Sodium Potassium Chloride Carbon Dioxide Anion Gap BUN Creatinine Est GFR ( Amer) Est GFR (Non-Af Amer) Random Glucose Calcium Iron TIBC % Saturation Ferritin Troponin I 0.0740 NT-Pro-B Natriuret Pep Vitamin B12 TSH 3rd Generation Alcohol, Quantitative < 10 - EKG Data EKG Interpreted by: Myself EKG shows normal: Sinus rhythm Rate: Normal - Imaging and Cardiology Chest x-ray Status: Report reviewed by me Assessment & Plan (1) COPD exacerbation Status: Acute Comment: iv steroiDs. nebs RTC. ABX. O2 NC. ABG (2) Chronic anemia Assessment and Plan: IRON PANEL STOOL FOB Status: Chronic (3) Leg edema Status: Chronic Comment: STOCKINGS (4) HLD (hyperlipidemia) Status: Chronic (5) HTN (hypertension) Status: Chronic Comment: RESUME MEDS. (6) Troponin I above reference range Assessment and Plan: UNLIKLEY CARDIAC EVENT WITH recent cath being normal cardiology on board ECHO Status: Acute Decision To Admit - Pt Status Changed To: Hospital Disposition Of: Inpatient - Admit Certification Admit to Inpatient:: After my assessment, the patient will require hospitalization for at least two midnights. This is because of the severity of symptoms shown, intensity of services needed, and/or the medical risk in this patient being treated as an outpatient. - . Bed Request Type: Telemetry Admitting Physician: Tamy Alan
[2016-08-12] MEDS: Albuterol HFA 90 mcg/actuation (8 g) IH SCH ×4 (04:00→21:11)
[2016-08-12 07:57] LABS: BASO % 0.5 % (0.0-2.0); EOS % 0.2 % (0.0-4.0); HEMOGLOBIN 8.3 g/dL (12.0-18.0); LYMPH # 0.4 K/uL (1.0-4.3); LYMPH % 4.5 % (20.0-40.0); MEAN CELL VOLUME 71.6 fl (80.0-94.0); MEAN CORPUSCULAR HEMOGLOBIN 22.1 pg (27.0-31.0); MEAN CORPUSCULAR HGB CONC 30.9 g/dL (33.0-37.0); MEAN PLATELET VOLUME 8.8 fl (7.2-11.7); MONO # 0.6 K/uL (0.0-0.8); MONO % 6.8 % (0.0-10.0); NEUT # 7.5 K/uL (1.8-7.0); NRBC % 0.2 % (0.0-0.0); PLATELET COUNT 214 K/uL (130-400); RBC 3.77 Mil/uL (4.40-5.90); RED CELL DISTRIBUTION WIDTH 27.2 % (11.5-14.5); WHITE BLOOD COUNT 8.6 K/uL (4.8-10.8)
[2016-08-12 08:24] LABS: IRON 23 ug/dL (49-181)
[2016-08-12 08:37] LABS: % IRON SATURATION 7 % (20-55); TOTAL IRON BINDING CAPACITY 311 ug/dL (250-450)
[2016-08-12] MEDS: Tiotropium 18 mcg Cap For Inhalation INH SCH (09:26)
[2016-08-12] MEDS: Fluticasone-Salmeterol 250-50mcg Diskus IH SCH ×2 (09:26→21:10)
[2016-08-12] MEDS: Naproxen 500 MG TAB PO SCH ×2 (09:27→21:08)
[2016-08-12] MEDS: Digoxin 125 mcg (0.125 mg) Tab PO SCH (09:29)
[2016-08-12] MEDS: methylPREDNISolone 40 MG in Sodium Chloride 0.9% 50 ML IVPB SCH ×2 (09:32→21:13)
[2016-08-12] MEDS: Azithromycin 500 MG in Sodium Chloride 0.9% 250 ML IVPB SCH (09:36)
--- NOTE | 2016-08-12 09:56 | CARD ---
APPROVED REPORT EXAM: Two-dimensional and M-mode echocardiogram with Doppler and color Doppler. Other Information Quality : ExcellentRhythm : NSR INDICATION Non STEMI 2D DIMENSIONS IVSd0.79 (0.7-1.1cm)LVDd5.39 (3.9-5.9cm) LVOT Diameter2.24 (1.8-2.4cm)PWd1.65 (0.7-1.1cm) IVSs0.94 (0.8-1.2cm)LVDs5.51 (2.5-4.0cm) FS (%) 2.4 %PWs1.63 (0.8-1.2cm) M-Mode DIMENSIONS Left Atrium (MM)4.44 (2.5-4.0cm)IVSd1.00 (0.7-1.1cm) Aortic Root3.32 (2.2-3.7cm)LVDd6.50 (4.0-5.6cm) Aortic Cusp Exc.1.82 (1.5-2.0cm)PWd1.12 (0.7-1.1cm) IVSs1.47 cmFS (%) 22 % LVDs5.06 (2.0-3.8cm)PWs1.24 cm Mitral Valve E/A ratio0.0 TDI E/Lateral E'0.0E/Medial E'0.0 Tricuspid Valve TR Peak [id number] [id number] Peak Gr.28mmHg [id number] LEFT VENTRICLE The left ventricle is normal size. There is normal left ventricular wall thickness. The systolic function is mildly impaired. The Ejection Fraction is 40-45%. There is mild to moderate dyskinesis in the septal wall. The left ventricular diastolic function is normal. No left ventricle thrombus noted on this study. There is no mass noted in the left ventricle. RIGHT VENTRICLE The right ventricle is normal size. There is normal right ventricular wall thickness. The right ventricular systolic function is normal. ATRIA The left atrium size is normal. The right atrium size is normal. The interatrial septum is intact with no evidence for an atrial septal defect. AORTIC VALVE The aortic valve is normal in structure and function. No aortic regurgitation is present. There is no aortic valvular stenosis. There is no aortic valvular vegetation. MITRAL VALVE The mitral valve is normal in structure and function. There is no evidence of mitral valve prolapse. There is no mitral valve stenosis. Mitral regurgitation is mild. TRICUSPID VALVE The tricuspid valve is normal in structure and function. There is mild to moderate tricuspid regurgitation. Right ventricular systolic pressure is estimated at 38 mmHg. There is no tricuspid valve prolapse or vegetation. There is no tricuspid valve stenosis. PULMONIC VALVE The pulmonary valve is normal in structure and function. There is no pulmonic valvular regurgitation. There is no pulmonic valvular stenosis. GREAT VESSELS The aortic root is normal in size. The IVC is normal in size and collapses >50% with inspiration. PERICARDIAL EFFUSION The pericardium appears normal. There is no pleural effusion. <Conclusion> The left ventricle is normal size. The systolic function is mildly impaired. The Ejection Fraction is 40-45%. There is mild to moderate dyskinesis in the septal wall. Mitral regurgitation is mild. There is mild to moderate tricuspid regurgitation. Right ventricular systolic pressure is estimated at 38 mmHg.
[2016-08-12 12:27] LABS: BARBITURATES, UR NEGATIVE (NEGATIVE); BENZODIAZEPINES, UR NEGATIVE (NEGATIVE); OPIATES, UR NEGATIVE (NEGATIVE); PHENCYCLIDINE, UR NEGATIVE (NEGATIVE)
[2016-08-12 13:14] LABS: ANISOCYTOSIS MARKED; BANDS 2 % (0-2); LYMPHOCYTE 8 % (20-50); MONOCYTE 7 % (0-10); NEUTROPHIL 83 % (42-75); PLATELET ESTIMATE NORMAL (NORMAL); TOTAL CELLS COUNTED 100
[2016-08-12 13:15] LABS: HYPOCHROMIC MODERATE; LARGE PLATELETS PRESENT; OVALOCYTES SLIGHT; SCHISTOCYTES SLIGHT; TARGET CELLS SLIGHT; TEARDROP CELLS SLIGHT
--- NOTE | 2016-08-12 16:05 | CP.PCM.PN ---
Subjective - Date & Time of Evaluation Date of Evaluation: 08/12/16 Time of Evaluation: 16:03 - Subjective Subjective: No C/P or SOB No records from either [facility] or [facility] Objective - Vital Signs/Intake and Output Vital Signs (last 24 hours): Temp Pulse Resp BP Pulse Ox 98.4 F 75 18 148/65 95 08/12/16 12:00 08/12/16 12:54 08/12/16 12:00 08/12/16 12:54 08/12/16 12:00 - Medications Medications: Current Medications Albuterol (Ventolin Hfa 90 Mcg/Actuation (8 G)) 2 puff IH Q6 [facility] Last Admin: 08/12/16 09:31 Dose: 2 puff Albuterol/Ipratropium (Duoneb 3 Mg/0.5 Mg (3 Ml) Ud) 3 ml INH RQ6 PRN PRN Reason: Shortness of Breath Amlodipine Besylate (Norvasc) 10 mg PO DAILY [facility] Last Admin: 08/12/16 12:54 Dose: 10 mg Apixaban (Eliquis) 5 mg PO BID [facility] PRN Reason: Protocol Last Admin: 08/12/16 09:29 Dose: 5 mg Aspirin (Aspirin) 325 mg PO DAILY [facility] Last Admin: 08/12/16 09:34 Dose: 325 mg Benztropine Mesylate (Cogentin) 1 mg PO HS [facility] Last Admin: 08/11/16 21:40 Dose: 1 mg Digoxin (Lanoxin) 0.125 mg PO DAILY [facility] Last Admin: 08/12/16 09:29 Dose: 0.125 mg Docusate Sodium (Colace) 100 mg PO BID PRN PRN Reason: Constipation Famotidine (Pepcid) 20 mg PO BID [facility] Last Admin: 08/12/16 09:26 Dose: 20 mg Ferrous Sulfate (Feosol) 325 mg PO BID [facility] Last Admin: 08/12/16 09:29 Dose: 325 mg Furosemide (Lasix) 20 mg PO DAILY [facility] Last Admin: 08/12/16 09:30 Dose: 20 mg Haloperidol (Haldol) 10 mg PO HS [facility] Last Admin: 08/11/16 21:18 Dose: 10 mg Methylprednisolone 40 mg/ (Sodium Chloride) 50 mls @ 100 mls/hr IVPB Q12 [facility] Last Admin: 08/12/16 09:32 Dose: 100 mls/hr Azithromycin 500 mg/ Sodium (Chloride) 250 mls @ 250 mls/hr IVPB DAILY [facility] Last Admin: 08/12/16 09:36 Dose: 250 mls/hr Metoprolol Tartrate (Lopressor) 12.5 mg PO Q12 [facility] Last Admin: 08/12/16 09:28 Dose: 12.5 mg Naproxen (Naproxen) 500 mg PO Q12 [facility] Last Admin: 08/12/16 09:27 Dose: 500 mg Fluticasone/Salmeterol (Advair Diskus 250/50) 1 puff IH Q12 [facility] Last Admin: 08/12/16 09:26 Dose: 1 puff Tiotropium [place] (Spiriva) 18 mcg INH DAILY [facility] Last Admin: 08/12/16 09:26 Dose: 18 mcg Trazodone HCl (Desyrel) 50 mg PO HS [facility] Last Admin: 08/11/16 21:40 Dose: 50 mg Valsartan (Diovan) 320 mg PO DAILY [facility] Last Admin: 08/12/16 09:29 Dose: 320 mg - Labs Labs: 08/12/16 06:30 08/11/16 05:00 PT 12.4 Seconds (9.8-13.1) 08/11/16 14:15 INR 1.1 (0.9-1.2) 08/11/16 14:15 APTT 36.4 Seconds (25.6-37.1) 08/11/16 14:15 - Head Exam Additional comments: pale conjunctiva - Neck Exam Neck Exam: Normal Inspection - Respiratory Exam Respiratory Exam: Rhonchi - Cardiovascular Exam Cardiovascular Exam: REGULAR RHYTHM - Extremities Exam Extremities Exam: Normal Inspection Assessment and Plan - Assessment and Plan (Free Text) Assessment: CHF acute systolic EF 40-45% C/P borderline trop. elevation Asthma Anemia Plan: Cont. Albuterol (Ventolin Hfa 90 Mcg/Actuation (8 G)) 2 puff IH Q6 [facility] Last Admin: 08/12/16 09:31 Dose: 2 puff Albuterol/Ipratropium (Duoneb 3 Mg/0.5 Mg (3 Ml) Ud) 3 ml INH RQ6 PRN PRN Reason: Shortness of Breath Amlodipine Besylate (Norvasc) 10 mg PO DAILY [facility] Last Admin: 08/12/16 12:54 Dose: 10 mg Apixaban (Eliquis) 5 mg PO BID [facility] PRN Reason: Protocol Last Admin: 08/12/16 09:29 Dose: 5 mg Aspirin (Aspirin) 325 mg PO DAILY [facility] Last Admin: 08/12/16 09:34 Dose: 325 mg Benztropine Mesylate (Cogentin) 1 mg PO HS [facility] Last Admin: 08/11/16 21:40 Dose: 1 mg Digoxin (Lanoxin) 0.125 mg PO DAILY [facility] Last Admin: 08/12/16 09:29 Dose: 0.125 mg Docusate Sodium (Colace) 100 mg PO BID PRN PRN Reason: Constipation Famotidine (Pepcid) 20 mg PO BID [facility] Last Admin: 08/12/16 09:26 Dose: 20 mg Ferrous Sulfate (Feosol) 325 mg PO BID [facility] Last Admin: 08/12/16 09:29 Dose: 325 mg Furosemide (Lasix) 20 mg PO DAILY [facility] Last Admin: 08/12/16 09:30 Dose: 20 mg Haloperidol (Haldol) 10 mg PO HS [facility] Last Admin: 08/11/16 21:18 Dose: 10 mg Methylprednisolone 40 mg/ (Sodium Chloride) 50 mls @ 100 mls/hr IVPB Q12 [facility] Last Admin: 08/12/16 09:32 Dose: 100 mls/hr Azithromycin 500 mg/ Sodium (Chloride) 250 mls @ 250 mls/hr IVPB DAILY [facility] Last Admin: 08/12/16 09:36 Dose: 250 mls/hr Metoprolol Tartrate (Lopressor) 12.5 mg PO Q12 [facility] Last Admin: 08/12/16 09:28 Dose: 12.5 mg Naproxen (Naproxen) 500 mg PO Q12 [facility] Last Admin: 08/12/16 09:27 Dose: 500 mg Fluticasone/Salmeterol (Advair Diskus 250/50) 1 puff IH Q12 [facility] Last Admin: 08/12/16 09:26 Dose: 1 puff Tiotropium [place] (Spiriva) 18 mcg INH DAILY [facility] Last Admin: 08/12/16 09:26 Dose: 18 mcg Trazodone HCl (Desyrel) 50 mg PO HS [facility] Last Admin: 08/11/16 21:40 Dose: 50 mg Valsartan (Diovan) 320 mg PO DAILY [facility] Last Admin: 08/12/16 09:29 Dose: 320 mg Awaiting Cath reports
--- NOTE | 2016-08-12 23:00 | CP.PCM.PN ---
Subjective - Date & Time of Evaluation Date of Evaluation: 08/12/16 Time of Evaluation: 09:00 - Subjective Subjective: feeling better, wheezing is better.tolearting diet. looks comfortable labs reviewed. iron panel- ferritin-43, Objective - Vital Signs/Intake and Output Vital Signs (last 24 hours): Temp Pulse Resp BP Pulse Ox 98.2 F 73 20 147/63 96 08/12/16 20:00 08/12/16 21:09 08/12/16 20:00 08/12/16 21:09 08/12/16 20:00 - Medications Medications: Current Medications Albuterol (Ventolin Hfa 90 Mcg/Actuation (8 G)) 2 puff IH Q6 [facility] Last Admin: 08/12/16 21:11 Dose: 2 puff Albuterol/Ipratropium (Duoneb 3 Mg/0.5 Mg (3 Ml) Ud) 3 ml INH RQ6 PRN PRN Reason: Shortness of Breath Amlodipine Besylate (Norvasc) 10 mg PO DAILY [facility] Last Admin: 08/12/16 12:54 Dose: 10 mg Apixaban (Eliquis) 5 mg PO BID [facility] PRN Reason: Protocol Last Admin: 08/12/16 16:40 Dose: 5 mg Aspirin (Aspirin) 325 mg PO DAILY [facility] Last Admin: 08/12/16 09:34 Dose: 325 mg Benztropine Mesylate (Cogentin) 1 mg PO HS [facility] Last Admin: 08/12/16 21:08 Dose: 1 mg Digoxin (Lanoxin) 0.125 mg PO DAILY [facility] Last Admin: 08/12/16 09:29 Dose: 0.125 mg Docusate Sodium (Colace) 100 mg PO BID PRN PRN Reason: Constipation Famotidine (Pepcid) 20 mg PO BID [facility] Last Admin: 08/12/16 16:41 Dose: 20 mg Ferrous Sulfate (Feosol) 325 mg PO BID [facility] Last Admin: 08/12/16 16:41 Dose: 325 mg Furosemide (Lasix) 20 mg PO DAILY [facility] Last Admin: 08/12/16 09:30 Dose: 20 mg Haloperidol (Haldol) 10 mg PO HS [facility] Last Admin: 08/12/16 21:08 Dose: 10 mg Methylprednisolone 40 mg/ (Sodium Chloride) 50 mls @ 100 mls/hr IVPB Q12 [facility] Last Admin: 08/12/16 21:13 Dose: 100 mls/hr Azithromycin 500 mg/ Sodium (Chloride) 250 mls @ 250 mls/hr IVPB DAILY [facility] Last Admin: 08/12/16 09:36 Dose: 250 mls/hr Metoprolol Tartrate (Lopressor) 12.5 mg PO Q12 [facility] Last Admin: 08/12/16 21:09 Dose: 12.5 mg Naproxen (Naproxen) 500 mg PO Q12 [facility] Last Admin: 08/12/16 21:08 Dose: 500 mg Fluticasone/Salmeterol (Advair Diskus 250/50) 1 puff IH Q12 [facility] Last Admin: 08/12/16 21:10 Dose: 1 puff Tiotropium [place] (Spiriva) 18 mcg INH DAILY [facility] Last Admin: 08/12/16 09:26 Dose: 18 mcg Trazodone HCl (Desyrel) 50 mg PO HS [facility] Last Admin: 08/12/16 21:08 Dose: 50 mg Valsartan (Diovan) 320 mg PO DAILY [facility] Last Admin: 08/12/16 09:29 Dose: 320 mg - Labs Labs: 08/12/16 06:30 08/11/16 05:00 PT 12.4 Seconds (9.8-13.1) 08/11/16 14:15 INR 1.1 (0.9-1.2) 08/11/16 14:15 APTT 36.4 Seconds (25.6-37.1) 08/11/16 14:15 - Additional Findings Additional findings: - Constitutional Appears: No Acute Distress - Head Exam Head Exam: ATRAUMATIC, NORMAL INSPECTION - Eye Exam Eye Exam: EOMI, Normal appearance, PERRL - ENT Exam ENT Exam: Mucous Membranes Moist - Neck Exam Neck exam: Positive for: Normal Inspection. Negative for: Lymphadenopathy, Tenderness - Respiratory Exam Respiratory Exam: Prolonged Expiratory Phase, Rales, Wheezes - Cardiovascular Exam Cardiovascular Exam: REGULAR RHYTHM, +S1, +S2, Systolic Murmur - GI/Abdominal Exam GI & Abdominal Exam: Normal Bowel Sounds, Soft. absent: Tenderness - Extremities Exam Extremities exam: Positive for: normal inspection, pedal edema, pedal pulses present. Negative for: tenderness - Back Exam Back exam: NORMAL INSPECTION - Neurological Exam Neurological exam: Alert, CN II-XII Intact - Psychiatric Exam Psychiatric exam: Normal Affect, Normal Mood - Skin Skin Exam: Intact, Normal Color Assessment and Plan (1) COPD exacerbation Status: Acute (2) Chronic anemia Status: Chronic (3) Leg edema Status: Chronic (4) HLD (hyperlipidemia) Status: Chronic (5) HTN (hypertension) Status: Chronic (6) Troponin I above reference range Status: Acute - Assessment and Plan (Free Text) Plan: continue meds nebs as needed labs reviewed.
[2016-08-13] MEDS: Albuterol HFA 90 mcg/actuation (8 g) IH SCH ×4 (04:00→21:53)
[2016-08-13] MEDS: Tiotropium 18 mcg Cap For Inhalation INH SCH (09:35)
[2016-08-13] MEDS: Fluticasone-Salmeterol 250-50mcg Diskus IH SCH ×2 (09:35→21:52)
[2016-08-13] MEDS: Digoxin 125 mcg (0.125 mg) Tab PO SCH (09:37)
[2016-08-13] MEDS: Naproxen 500 MG TAB PO SCH ×2 (09:38→21:50)
[2016-08-13] MEDS: methylPREDNISolone 40 MG in Sodium Chloride 0.9% 50 ML IVPB SCH ×2 (09:40→21:57)
[2016-08-13] MEDS: Azithromycin 500 MG in Sodium Chloride 0.9% 250 ML IVPB SCH (09:47)
--- NOTE | 2016-08-13 16:27 | CP.PCM.PN ---
Subjective - Date & Time of Evaluation Date of Evaluation: 08/13/16 Time of Evaluation: 16:24 - Subjective Subjective: No c/p SOB inproved Cath report from [place] Mar 2016, nonischemic cardiomyopathy Objective - Vital Signs/Intake and Output Vital Signs (last 24 hours): Temp Pulse Resp BP Pulse Ox 97.5 F L 76 18 159/65 H 97 08/13/16 16:00 08/13/16 16:00 08/13/16 16:00 08/13/16 16:00 08/13/16 16:00 - Medications Medications: Current Medications Albuterol (Ventolin Hfa 90 Mcg/Actuation (8 G)) 2 puff IH Q6 [facility] Last Admin: 08/13/16 09:39 Dose: 2 puff Albuterol/Ipratropium (Duoneb 3 Mg/0.5 Mg (3 Ml) Ud) 3 ml INH RQ6 PRN PRN Reason: Shortness of Breath Amlodipine Besylate (Norvasc) 10 mg PO DAILY [facility] Last Admin: 08/13/16 09:39 Dose: 10 mg Apixaban (Eliquis) 5 mg PO BID [facility] PRN Reason: Protocol Last Admin: 08/13/16 09:36 Dose: 5 mg Aspirin (Aspirin) 325 mg PO DAILY [facility] Last Admin: 08/13/16 09:42 Dose: 325 mg Benztropine Mesylate (Cogentin) 1 mg PO HS [facility] Last Admin: 08/12/16 21:08 Dose: 1 mg Digoxin (Lanoxin) 0.125 mg PO DAILY [facility] Last Admin: 08/13/16 09:37 Dose: 0.125 mg Docusate Sodium (Colace) 100 mg PO BID PRN PRN Reason: Constipation Famotidine (Pepcid) 20 mg PO BID [facility] Last Admin: 08/13/16 09:40 Dose: 20 mg Ferrous Sulfate (Feosol) 325 mg PO BID [facility] Last Admin: 08/13/16 09:36 Dose: 325 mg Furosemide (Lasix) 20 mg PO DAILY [facility] Last Admin: 08/13/16 09:37 Dose: 20 mg Haloperidol (Haldol) 10 mg PO HS [facility] Last Admin: 08/12/16 21:08 Dose: 10 mg Methylprednisolone 40 mg/ (Sodium Chloride) 50 mls @ 100 mls/hr IVPB Q12 [facility] Last Admin: 08/13/16 09:40 Dose: 100 mls/hr Azithromycin 500 mg/ Sodium (Chloride) 250 mls @ 250 mls/hr IVPB DAILY [facility] Last Admin: 08/13/16 09:47 Dose: 250 mls/hr Metoprolol Tartrate (Lopressor) 12.5 mg PO Q12 [facility] Last Admin: 08/13/16 09:38 Dose: 12.5 mg Naproxen (Naproxen) 500 mg PO Q12 [facility] Last Admin: 08/13/16 09:38 Dose: 500 mg Fluticasone/Salmeterol (Advair Diskus 250/50) 1 puff IH Q12 [facility] Last Admin: 08/13/16 09:35 Dose: 1 puff Tiotropium [place] (Spiriva) 18 mcg INH DAILY [facility] Last Admin: 08/13/16 09:35 Dose: 18 mcg Trazodone HCl (Desyrel) 50 mg PO HS [facility] Last Admin: 08/12/16 21:08 Dose: 50 mg Valsartan (Diovan) 320 mg PO DAILY [facility] Last Admin: 08/13/16 09:36 Dose: 320 mg - Labs Labs: 08/12/16 06:30 08/11/16 05:00 PT 12.4 Seconds (9.8-13.1) 08/11/16 14:15 INR 1.1 (0.9-1.2) 08/11/16 14:15 APTT 36.4 Seconds (25.6-37.1) 08/11/16 14:15 - Constitutional Appears: Non-toxic - Head Exam Head Exam: NORMAL INSPECTION - Eye Exam Eye Exam: Normal appearance - Neck Exam Neck Exam: Normal Inspection - Respiratory Exam Respiratory Exam: Rhonchi - Cardiovascular Exam Cardiovascular Exam: REGULAR RHYTHM - Extremities Exam Extremities Exam: Normal Inspection Assessment and Plan - Assessment and Plan (Free Text) Assessment: Assessment: CHF acute systolic EF 40-45%( nonishemic CM) C/P borderline trop. elevation Asthma Anemia Plan: Plan: Cont. Albuterol Amlodipine Besylate (Norvasc) 10 mg PO DAILY [facility] Apixaban (Eliquis) 5 mg PO BID [facility] Aspirin (Aspirin) 325 mg PO DAILY [facility] Digoxin (Lanoxin) 0.125 mg PO DAILY [facility] Ferrous Sulfate (Feosol) 325 mg PO BID [facility] Furosemide (Lasix) 20 mg PO DAILY [facility] Methylprednisolone 40 mg/ (Sodium Chloride) 50 mls @ 100 mls/hr IVPB Q12 [facility] Azithromycin 500 mg/ Sodium (Chloride) 250 mls @ 250 mls/hr IVPB DAILY [facility] Last Admin: 08/12/16 09:36 Dose: 250 mls/hr Metoprolol Tartrate (Lopressor) 12.5 mg PO Q12 [facility] Valsartan (Diovan) 320 mg PO DAILY [facility]
--- NOTE | 2016-08-13 22:50 | CP.PCM.PN ---
Subjective - Date & Time of Evaluation Date of Evaluation: 08/13/16 Time of Evaluation: 08:00 - Subjective Subjective: wheezing,feeling better. no new complaints. Objective - Vital Signs/Intake and Output Vital Signs (last 24 hours): Temp Pulse Resp BP Pulse Ox 97.9 F 74 20 169/69 H 100 08/13/16 19:21 08/13/16 21:51 08/13/16 19:21 08/13/16 21:51 08/13/16 19:21 - Medications Medications: Current Medications Albuterol (Ventolin Hfa 90 Mcg/Actuation (8 G)) 2 puff IH Q6 [facility] Last Admin: 08/13/16 21:53 Dose: 2 puff Albuterol/Ipratropium (Duoneb 3 Mg/0.5 Mg (3 Ml) Ud) 3 ml INH RQ6 PRN PRN Reason: Shortness of Breath Amlodipine Besylate (Norvasc) 10 mg PO DAILY [facility] Last Admin: 08/13/16 09:39 Dose: 10 mg Apixaban (Eliquis) 5 mg PO BID [facility] PRN Reason: Protocol Last Admin: 08/13/16 16:35 Dose: 5 mg Aspirin (Aspirin) 325 mg PO DAILY [facility] Last Admin: 08/13/16 09:42 Dose: 325 mg Benztropine Mesylate (Cogentin) 1 mg PO HS [facility] Last Admin: 08/13/16 21:53 Dose: 1 mg Digoxin (Lanoxin) 0.125 mg PO DAILY [facility] Last Admin: 08/13/16 09:37 Dose: 0.125 mg Docusate Sodium (Colace) 100 mg PO BID PRN PRN Reason: Constipation Famotidine (Pepcid) 20 mg PO BID [facility] Last Admin: 08/13/16 16:34 Dose: 20 mg Ferrous Sulfate (Feosol) 325 mg PO BID [facility] Last Admin: 08/13/16 16:34 Dose: 325 mg Furosemide (Lasix) 20 mg PO DAILY [facility] Last Admin: 08/13/16 09:37 Dose: 20 mg Haloperidol (Haldol) 10 mg PO HS [facility] Last Admin: 08/13/16 21:53 Dose: 10 mg Methylprednisolone 40 mg/ (Sodium Chloride) 50 mls @ 100 mls/hr IVPB Q12 [facility] Last Admin: 08/13/16 21:57 Dose: 100 mls/hr Azithromycin 500 mg/ Sodium (Chloride) 250 mls @ 250 mls/hr IVPB DAILY [facility] Last Admin: 08/13/16 09:47 Dose: 250 mls/hr Metoprolol Tartrate (Lopressor) 12.5 mg PO Q12 [facility] Last Admin: 08/13/16 21:51 Dose: 12.5 mg Naproxen (Naproxen) 500 mg PO Q12 [facility] Last Admin: 08/13/16 21:50 Dose: 500 mg Fluticasone/Salmeterol (Advair Diskus 250/50) 1 puff IH Q12 [facility] Last Admin: 08/13/16 21:52 Dose: 1 puff Tiotropium [place] (Spiriva) 18 mcg INH DAILY [facility] Last Admin: 08/13/16 09:35 Dose: 18 mcg Trazodone HCl (Desyrel) 50 mg PO HS [facility] Last Admin: 08/13/16 21:52 Dose: 50 mg Valsartan (Diovan) 320 mg PO DAILY [facility] Last Admin: 08/13/16 09:36 Dose: 320 mg - Labs Labs: 08/12/16 06:30 08/11/16 05:00 PT 12.4 Seconds (9.8-13.1) 08/11/16 14:15 INR 1.1 (0.9-1.2) 08/11/16 14:15 APTT 36.4 Seconds (25.6-37.1) 08/11/16 14:15 - Additional Findings Additional findings: - Constitutional Appears: No Acute Distress - Head Exam Head Exam: ATRAUMATIC, NORMAL INSPECTION - Eye Exam Eye Exam: EOMI, Normal appearance, PERRL - ENT Exam ENT Exam: Mucous Membranes Moist - Neck Exam Neck exam: Positive for: Normal Inspection. Negative for: Lymphadenopathy, Tenderness - Respiratory Exam Respiratory Exam: Prolonged Expiratory Phase, Rales, scattered Wheezes - Cardiovascular Exam Cardiovascular Exam: REGULAR RHYTHM, +S1, +S2, Systolic Murmur - GI/Abdominal Exam GI & Abdominal Exam: Normal Bowel Sounds, Soft. absent: Tenderness - Extremities Exam Extremities exam: Positive for: normal inspection, pedal edema, pedal pulses present. Negative for: tenderness - Back Exam Back exam: NORMAL INSPECTION - Neurological Exam Neurological exam: Alert, CN II-XII Intact - Psychiatric Exam Psychiatric exam: Normal Affect, Normal Mood - Skin Skin Exam: Intact, Normal Color Assessment and Plan (1) COPD exacerbation Status: Acute (2) Chronic anemia Status: Chronic (3) Leg edema Status: Chronic (4) HLD (hyperlipidemia) Status: Chronic (5) HTN (hypertension) Status: Chronic (6) Troponin I above reference range Status: Acute - Assessment and Plan (Free Text) Plan: continue meds possible d\c in am improved
[2016-08-14] MEDS: Albuterol HFA 90 mcg/actuation (8 g) IH SCH ×3 (04:12→16:18)
[2016-08-14] MEDS: Fluticasone-Salmeterol 250-50mcg Diskus IH SCH (08:53)
[2016-08-14] MEDS: Digoxin 125 mcg (0.125 mg) Tab PO SCH (08:55)
[2016-08-14] MEDS: Naproxen 500 MG TAB PO SCH (08:57)
[2016-08-14] MEDS: methylPREDNISolone 40 MG in Sodium Chloride 0.9% 50 ML IVPB SCH (08:58)
[2016-08-14] MEDS: Tiotropium 18 mcg Cap For Inhalation INH SCH (08:58)
[2016-08-14 08:59] VITALS: PULSE 68
[2016-08-14] MEDS: Azithromycin 500 MG in Sodium Chloride 0.9% 250 ML IVPB SCH (08:59)
--- NOTE | 2016-08-14 09:29 | IP.NPCORE ---
Heart Failure Core Measure - Heart Failure Ejection Fraction: 40 % or Greater
[2016-08-14 12:49] VITALS: PULSE 69
--- NOTE | 2016-08-14 13:30 | CP.PCM.PN ---
Subjective - Date & Time of Evaluation Date of Evaluation: 08/14/16 Time of Evaluation: 13:28 - Subjective Subjective: SOB improved, no c/p Objective - Vital Signs/Intake and Output Vital Signs (last 24 hours): Temp Pulse Resp BP Pulse Ox 98.1 F 69 18 154/69 H 96 08/14/16 12:48 08/14/16 12:48 08/14/16 12:48 08/14/16 12:48 08/14/16 12:48 - Medications Medications: Current Medications Albuterol (Ventolin Hfa 90 Mcg/Actuation (8 G)) 2 puff IH Q6 [facility] Last Admin: 08/14/16 09:08 Dose: 2 puff Albuterol/Ipratropium (Duoneb 3 Mg/0.5 Mg (3 Ml) Ud) 3 ml INH RQ6 PRN PRN Reason: Shortness of Breath Amlodipine Besylate (Norvasc) 10 mg PO DAILY [facility] Last Admin: 08/14/16 08:58 Dose: 10 mg Apixaban (Eliquis) 5 mg PO BID [facility] PRN Reason: Protocol Last Admin: 08/14/16 08:54 Dose: 5 mg Aspirin (Aspirin) 325 mg PO DAILY [facility] Last Admin: 08/14/16 09:07 Dose: 325 mg Benztropine Mesylate (Cogentin) 1 mg PO HS [facility] Last Admin: 08/13/16 21:53 Dose: 1 mg Digoxin (Lanoxin) 0.125 mg PO DAILY [facility] Last Admin: 08/14/16 08:55 Dose: 0.125 mg Docusate Sodium (Colace) 100 mg PO BID PRN PRN Reason: Constipation Famotidine (Pepcid) 20 mg PO BID [facility] Last Admin: 08/14/16 08:58 Dose: 20 mg Ferrous Sulfate (Feosol) 325 mg PO BID [facility] Last Admin: 08/14/16 08:55 Dose: 325 mg Furosemide (Lasix) 20 mg PO DAILY [facility] Last Admin: 08/14/16 08:56 Dose: 20 mg Haloperidol (Haldol) 10 mg PO HS [facility] Last Admin: 08/13/16 21:53 Dose: 10 mg Methylprednisolone 40 mg/ (Sodium Chloride) 50 mls @ 100 mls/hr IVPB Q12 [facility] Last Admin: 08/14/16 08:58 Dose: 100 mls/hr Azithromycin 500 mg/ Sodium (Chloride) 250 mls @ 250 mls/hr IVPB DAILY [facility] Last Admin: 08/14/16 08:59 Dose: 250 mls/hr Metoprolol Tartrate (Lopressor) 12.5 mg PO Q12 [facility] Last Admin: 08/14/16 08:56 Dose: 12.5 mg Naproxen (Naproxen) 500 mg PO Q12 [facility] Last Admin: 08/14/16 08:57 Dose: 500 mg Fluticasone/Salmeterol (Advair Diskus 250/50) 1 puff IH Q12 [facility] Last Admin: 08/14/16 08:53 Dose: 1 puff Sertraline HCl (Zoloft) 25 mg PO DAILY [facility] Last Admin: 08/14/16 12:30 Dose: 25 mg Tiotropium [place] (Spiriva) 18 mcg INH DAILY [facility] Last Admin: 08/14/16 08:58 Dose: 18 mcg Valsartan (Diovan) 320 mg PO DAILY [facility] Last Admin: 08/14/16 08:54 Dose: 320 mg - Labs Labs: 08/12/16 06:30 08/11/16 05:00 PT 12.4 Seconds (9.8-13.1) 08/11/16 14:15 INR 1.1 (0.9-1.2) 08/11/16 14:15 APTT 36.4 Seconds (25.6-37.1) 08/11/16 14:15 - Constitutional Appears: No Acute Distress - Head Exam Head Exam: NORMOCEPHALIC - Eye Exam Eye Exam: Normal appearance - Neck Exam Neck Exam: Normal Inspection - Respiratory Exam Respiratory Exam: Rhonchi - Cardiovascular Exam Cardiovascular Exam: REGULAR RHYTHM - GI/Abdominal Exam GI & Abdominal Exam: Normal Bowel Sounds - Extremities Exam Extremities Exam: Normal Inspection Assessment and Plan - Assessment and Plan (Free Text) Assessment: CHF acute systolic EF 40-45%( nonishemic CM) C/P borderline trop. elevation Asthma Anemia Plan: C Cont. Albuterol Amlodipine 10 mg PO DAILY [facility] Apixaban 5 mg PO BID [facility] Aspirin (Aspirin) 325 mg PO DAILY [facility] Digoxin (Lanoxin) 0.125 mg PO DAILY [facility] Ferrous Sulfate (Feosol) 325 mg PO BID [facility] Furosemide (Lasix) 20 mg PO DAILY [facility] Methylprednisolone 40 mg/ (Sodium Chloride) 50 mls @ 100 mls/hr IVPB Q12 [facility] Azithromycin 500 mg/ Sodium (Chloride) 250 mls @ 250 mls/hr IVPB DAILY [facility] Metoprolol 12.5 mg PO Q12 [facility] Valsartan 320 mg PO DAILY [facility]
[2016-08-14 15:43] VITALS: BP 164/75; RESP 20; TEMP 98.3; O2SAT 98
--- NOTE | 2016-08-16 15:33 | PQF GENQUE ---
Dr. Alan supervisor title progress note dated 08/12 documented acute systolic heart failure. After study do you concur with this diagnosis? This form is a permanent part of the medical record Clarification of your documentation is requested to better reflect the severity of illness and intensity of treatment of your patient. Indicators present [] Specify: [] [] Specify: [] [] Specify: [] [] Specify: [] Location in the medical record that reflects the above clinical findings: [] Treatment Provided: [] PHYSICIAN'S RESPONSE Based on your medical judgment of the clinical indicators outlined above please clarify the following: [] Practitioner response [] If unable to determine, please check the box, sign and date. Present On Admission (POA) Indicator: [] Present at the time of admission [] Not present at the time of admission [] Clinically Undetermined In responding to this query, please exercise your independent professional judgment. The fact that a question is asked does not imply that any particular answer is desired or expected. Thank you for your clarification on this documentation. If you have any questions please call:[ ] * Thank you, [ ]Paula [employer] instruments sales representative MIAH
--- NOTE | 2016-08-16 20:55 | CP.PCM.DIS ---
Provider - Provider Date of Admission: 08/10/16 22:26 Attending physician: Tamy Alan MD Time Spent in preparation of Discharge (in minutes): 30 Diagnosis - Discharge Diagnosis (1) COPD exacerbation Status: Acute (2) Chronic anemia Status: Chronic (3) Leg edema Status: Chronic (4) HLD (hyperlipidemia) Status: Chronic (5) HTN (hypertension) Status: Chronic (6) Troponin I above reference range Status: Resolved (7) CHF (congestive heart failure) Status: Acute (8) CHF (congestive heart failure) Status: Chronic Comment: continue all meds. f\u cardiology. advise to quit smoking. medrol dose [facility] Hospital Course - Lab Results Lab Results: Most Recent Lab Values WBC 8.6 K/uL (4.8-10.8) 08/12/16 06:30 RBC 3.77 Mil/uL (4.40-5.90) L 08/12/16 06:30 Hgb 8.3 g/dL (12.0-18.0) L 08/12/16 06:30 Hct 27.0 % (35.0-51.0) L 08/12/16 06:30 MCV 71.6 fl (80.0-94.0) L 08/12/16 06:30 MCH 22.1 pg (27.0-31.0) L 08/12/16 06:30 MCHC 30.9 g/dL (33.0-37.0) L 08/12/16 06:30 RDW 27.2 % (11.5-14.5) H 08/12/16 06:30 Plt Count 214 K/uL (130-400) 08/12/16 06:30 MPV 8.8 fl (7.2-11.7) 08/12/16 06:30 Neut % (Auto) 88.0 % (50.0-75.0) H 08/12/16 06:30 Lymph % (Auto) 4.5 % (20.0-40.0) L 08/12/16 06:30 [place] % (Auto) 6.8 % (0.0-10.0) 08/12/16 06:30 Eos % (Auto) 0.2 % (0.0-4.0) 08/12/16 06:30 Baso % (Auto) 0.5 % (0.0-2.0) 08/12/16 06:30 Neut # 7.5 K/uL (1.8-7.0) H 08/12/16 06:30 Lymph # 0.4 K/uL (1.0-4.3) L 08/12/16 06:30 [place] # 0.6 K/uL (0.0-0.8) 08/12/16 06:30 Eos # 0.0 K/uL (0.0-0.7) 08/12/16 06:30 Baso # 0.0 K/uL (0.0-0.2) 08/12/16 06:30 Neutrophils % (Manual) 83 % (42-75) H 08/12/16 06:30 Band Neutrophils % 2 % (0-2) 08/12/16 06:30 Lymphocytes % (Manual) 8 % (20-50) L 08/12/16 06:30 Monocytes % (Manual) 7 % (0-10) 08/12/16 06:30 Platelet Estimate Normal (NORMAL) 08/12/16 06:30 Large Platelets Present 08/12/16 06:30 Hypochromasia (manual) Moderate 08/12/16 06:30 Anisocytosis (manual) Marked 08/12/16 06:30 Target Cells Slight 08/12/16 06:30 Tear Drop Cells Slight 08/12/16 06:30 Ovalocytes Slight 08/12/16 06:30 Schistocytes Slight 08/12/16 06:30 PT 12.4 Seconds (9.8-13.1) 08/11/16 14:15 INR 1.1 (0.9-1.2) 08/11/16 14:15 APTT 36.4 Seconds (25.6-37.1) 08/11/16 14:15 Sodium 139 mmol/l (132-148) 08/11/16 05:00 Potassium 4.1 MMOL/L (3.6-5.0) 08/11/16 05:00 Chloride 107 mmol/L (98-107) 08/11/16 05:00 Carbon Dioxide 27 mmol/L (22-30) 08/11/16 05:00 Anion Gap 10 (10-20) 08/11/16 05:00 BUN 24 mg/dl (9-20) H 08/11/16 05:00 Creatinine 1.1 mg/dL (0.8-1.5) 08/11/16 05:00 Est GFR ( Amer) > 60 08/11/16 05:00 Est GFR (Non-Af Amer) > 60 08/11/16 05:00 Random Glucose 98 mg/dL (75-110) 08/11/16 05:00 Calcium 8.9 mg/dL (8.4-10.2) 08/11/16 05:00 Iron 23 ug/dL (49-181) L 08/11/16 06:30 TIBC 311 ug/dL (250-450) 08/11/16 06:30 % Saturation 7 % (20-55) L 08/11/16 06:30 Ferritin 43.6 ng/mL 08/11/16 06:30 Total Bilirubin 0.2 mg/dl (0.2-1.3) 08/10/16 21:45 AST 45 U/L (17-59) 08/10/16 21:45 ALT 51 U/L (21-72) 08/10/16 21:45 Alkaline Phosphatase 51 U/L (38-126) 08/10/16 21:45 Troponin I 0.0740 ng/mL (0.00-0.120) 08/11/16 14:15 NT-Pro-B Natriuret Pep 456 pg/ml (0-900) 08/10/16 22:44 Total Protein 6.0 G/DL (6.3-8.2) L 08/10/16 21:45 Albumin 3.3 g/dL (3.5-5.0) L 08/10/16 21:45 Globulin 2.7 gm/dL (2.2-3.9) 08/10/16 21:45 Albumin/Globulin Ratio 1.2 (1.0-2.1) 08/10/16 21:45 Vitamin B12 552 pg/mL (239-931) 08/11/16 06:00 TSH 3rd Generation 0.73 mIU/ML (0.46-4.68) 08/11/16 05:00 Stool Occult Blood Negative (NEGATIVE) 08/13/16 09:45 Urine Opiates Screen Negative (NEGATIVE) 08/12/16 11:50 Urine Methadone Screen Negative (NEGATIVE) 08/12/16 11:50 Ur Barbiturates Screen Negative (NEGATIVE) 08/12/16 11:50 Ur Phencyclidine Scrn Negative (NEGATIVE) 08/12/16 11:50 Ur Amphetamines Screen Negative (NEGATIVE) 08/12/16 11:50 U Benzodiazepines Scrn Negative (NEGATIVE) 08/12/16 11:50 U Oth Cocaine Metabols Negative (NEGATIVE) 08/12/16 11:50 U Cannabinoids Screen Negative (NEGATIVE) 08/12/16 11:50 Alcohol, Quantitative < 10 mg/dl (0-10) 08/11/16 12:22 U Ethyl Alcohol Screen None detected mg/dL 08/10/16 10:32 - Hospital Course Hospital Course: uneventful responded with steroids echo-borderline LVSF with chronic leg edema wears stocking based on clinical exam- patient has likley copd exa with chronic CHF , positive trops with recent angiogram being normal Discharge Exam - Head Exam Head Exam: NORMOCEPHALIC - Additional Findings Additional findings: - Constitutional Appears: No Acute Distress - Head Exam Head Exam: ATRAUMATIC, NORMAL INSPECTION - Eye Exam Eye Exam: EOMI, Normal appearance, PERRL - ENT Exam ENT Exam: Mucous Membranes Moist - Neck Exam Neck exam: Positive for: Normal Inspection. Negative for: Lymphadenopathy, Tenderness - Respiratory Exam Respiratory Exam: negative for Prolonged Expiratory Phase, Rales, Wheezes - Cardiovascular Exam Cardiovascular Exam: REGULAR RHYTHM, +S1, +S2, Systolic Murmur - GI/Abdominal Exam GI & Abdominal Exam: Normal Bowel Sounds, Soft. absent: Tenderness - Extremities Exam Extremities exam: Positive for: normal inspection, trace pedal edema[stockimgs] , pedal pulses present. Negative for: tenderness - Back Exam Back exam: NORMAL INSPECTION - Neurological Exam Neurological exam: Alert, CN II-XII Intact - Psychiatric Exam Psychiatric exam: Normal Affect, Normal Mood - Skin Skin Exam: Intact, Normal Color Discharge Plan - Discharge Medications Prescriptions: Methylprednisolone [Medrol Dose Pack (21 tabs)] 4 mg PO DAILY #21 mg - Follow Up Plan Condition: STABLE Disposition: HOME/ ROUTINE Instructions: Myocardial Infarction (DC), COPD (Chronic Obstructive Pulmonary Disease) (DC)
== END 2016-08-14 16:28 | disposition home or self-care (01) | DRG 541 ==
LOC: H.ER 21:15 → H.ERHOLD 22:26 → H.TEL 23:49
PROVIDERS: ADMIT Internal Medicine; ATTEND Internal Medicine
DX: J44.1 Chronic obstructive pulmonary disease with (acute) exacerbation (principal); I50.22 Chronic systolic (congestive) heart failure; I42.8 Other cardiomyopathies; I11.0 Hypertensive heart disease with heart failure; I48.91 Unspecified atrial fibrillation; F17.210 Nicotine dependence, cigarettes, uncomplicated; G89.29 Other chronic pain; E78.5 Hyperlipidemia, unspecified; E78.00 Pure hypercholesterolemia, unspecified; D64.9 Anemia, unspecified; Z98.61 Coronary angioplasty status; Z86.73 Personal history of transient ischemic attack (TIA), and cerebral infarction without residual deficits; J45.909 Unspecified asthma, uncomplicated; F41.9 Anxiety disorder, unspecified; F32.9 Major depressive disorder, single episode, unspecified; R78.89 Finding of other specified substances, not normally found in blood

== ENCOUNTER 2016-08-14 23:29 | Emergency (ER) | payer MEDICAID ==
[2016-08-14 23:30] VITALS: PULSE 68; BMI 22.0
[2016-08-15] MEDS ORDERED: Albuterol-Ipratrop 3 mg / 0.5 (3 ml) UD IH STA ×2 (00:29→00:31)
[2016-08-15] MEDS ORDERED: Albuterol-Ipratrop 3 mg / 0.5 (3 ml) UD ONE (00:39)
[2016-08-15 00:56] LABS: BASO % 0.2 % (0.0-2.0); EOS # 0.2 K/uL (0.0-0.7); EOS % 0.7 % (0.0-4.0); HEMOGLOBIN 8.4 g/dL (12.0-18.0); LYMPH # 0.5 K/uL (1.0-4.3); LYMPH % 2.3 % (20.0-40.0); MEAN CELL VOLUME 72.3 fl (80.0-94.0); MEAN CORPUSCULAR HEMOGLOBIN 22.2 pg (27.0-31.0); MEAN CORPUSCULAR HGB CONC 30.7 g/dL (33.0-37.0); MEAN PLATELET VOLUME 8.8 fl (7.2-11.7); MONO % 13.8 % (0.0-10.0); NEUT # 17.8 K/uL (1.8-7.0); NRBC % 0.1 % (0.0-0.0); RBC 3.79 Mil/uL (4.40-5.90); RED CELL DISTRIBUTION WIDTH 27.1 % (11.5-14.5); WHITE BLOOD COUNT 21.4 K/uL (4.8-10.8)
[2016-08-15 01:05] LABS: ALB/GLOB RATIO 1.2 (1.0-2.1); ALBUMIN 3.2 g/dL (3.5-5.0)
[2016-08-15 01:15] LABS: TROPONIN I 0.077 ng/mL (0.00-0.120)
--- NOTE | 2016-08-15 02:43 | ED PDOC ---
HPI: SOB/CHF/COPD Time Seen by Provider: 08/14/16 23:46 Chief Complaint (Nursing): Shortness Of Breath Chief Complaint (Provider): sob History Per: Patient History/Exam Limitations: no limitations Onset/Duration Of Symptoms: Days (2) Current Symptoms Are (Timing): Still Present Additional History Per: Patient Additional Complaint(s): 60 y/o male presents with shortness of breath x 2 days. Associated cough. Denies fever, nasal congestion, chest pain, palpitations, abdominal pain, leg pain/swelling, recent travel. Patient just discharged from hospital yesterday. Past Medical History Reviewed: Historical Data, Nursing Documentation, Vital Signs Vital Signs: Last Vital Signs Temp 98.9 F 08/14/16 23:39 Pulse 96 H 08/15/16 04:46 Resp 16 08/15/16 04:46 BP 133/67 08/14/16 23:39 Pulse Ox 100 08/15/16 04:57 - Medical History PMH: Anemia, Anxiety, Arthritis, Asthma, Atrial Fibrillation, COPD, CVA, Depression, HTN, Hypercholesterolemia, Hyperlipidemia Denies: Diabetes, Hepatitis, HIV, Chronic Kidney Disease, Seizures, Sexually Transmitted Disease - Surgical History Surgical History: Denies: Coronary Stent - Family History Family History: States: [place] (Mother), [place] (Mother) - Immunization History Hx Tetanus Toxoid Vaccination: No Hx Influenza Vaccination: No Hx Pneumococcal Vaccination: No - Home Medications Home Medications: Ambulatory Orders Medication Instructions Recorded Omeprazole 40 mg PO DAILY #30 capsule. 06/01/16 amLODIPine [Norvasc] 10 mg PO DAILY #30 tab 06/01/16 Aspirin [Ecotrin] 81 mg PO DAILY 06/15/16 Apixaban [Eliquis] 5 mg PO BID #60 07/31/16 Digoxin [Lanoxin] 125 mcg PO DAILY #30 07/31/16 Ferrous Sulfate [Feosol] 325 mg PO BID #60 tab 07/31/16 Furosemide [Lasix] 20 mg PO DAILY #30 tab 07/31/16 Tiotropium [Spiriva] 18 mcg INH DAILY #1 dev 07/31/16 Valsartan [Diovan] 320 mg PO DAILY #30 07/31/16 Albuterol HFA [Ventolin HFA 90 2 puff IH Q6 #200 puff 08/01/16 mcg/actuation (8 g)] Naproxen 500 mg PO BID #20 tablet. 08/01/16 Docusate [Colace] 100 mg PO BID PRN 08/02/16 Benztropine [Cogentin] 1 mg PO HS #30 tab 08/09/16 Haloperidol [Haldol] 10 mg PO HS #30 tab 08/09/16 traZODone [Desyrel] 50 mg PO HS #30 tab 08/09/16 Methylprednisolone [Medrol Dose 4 mg PO DAILY #21 mg 08/14/16 Pack (21 tabs)] - Allergies Allergies/Adverse Reactions: Allergies Allergy/AdvReac Type Severity Reaction Status Date / Time No Known Allergies Allergy Verified 08/10/16 21:18 Review of Systems ROS Statement: Except As Marked, All Systems Reviewed And Found Negative Respiratory: Positive for: Shortness of Breath Physical Exam - Reviewed Nursing Documentation Reviewed: Yes Vital Signs Reviewed: Yes - Physical Exam Appears: Positive for: Well, Non-toxic, No Acute Distress Head Exam: Positive for: ATRAUMATIC, NORMAL INSPECTION, NORMOCEPHALIC Skin: Positive for: Normal Color Eye Exam: Positive for: Normal appearance ENT: Positive for: Normal ENT Inspection Cardiovascular/Chest: Positive for: Regular Rate, Rhythm Respiratory: Positive for: Wheezing (diffuse expiratory) Gastrointestinal/Abdominal: Positive for: Normal Exam Back: Positive for: Normal Inspection Extremity: Positive for: Normal ROM Neurologic/Psych: Positive for: Alert, Oriented - Laboratory Results Result Diagrams: 08/15/16 00:52 08/15/16 00:52 - ECG ECG: Positive for: Viewed By Me (reviewed by ED attending) ECG Rhythm: Positive for: Sinus Rhythm O2 Sat by Pulse Oximetry: 100 Pulse Ox Interpretation: Normal - Radiology X-Ray: Viewed By Me X-Ray Interpretation: No Acute Disease - Progress ED Course And Treament: labs, ekg, chest xray, duonebs ED OBSERVATION Discharge: Yes Date of observation admission: 08/15/16 Time of observation admission: 01:00 - Observation admission statement Patient is being placed in observation because:: COPD exacerbation - Goals of Observation Goals of observation are:: administer duonebs, IV solumedrol, and observe on monitor - Progress Note Progress Note: 08/15/16 1:45 Patient O2 92-93% room air; IV solmedrol dose ordered 3:15 Patient sleeping; O2 98% 3L NC 4:45 Patient sleeping; O2 92% room air. Upon waking patient up, O2 sat now 97% room air. Lungs clear to ausculatation. Patient reports feeling better. 08/15/16 05:15 Patient educated on findings, discharged. Advised to continue previous medications (prednisone included) Follow up PMD 2-3 days. Return to ED for worsening/concerning symptosm. Disposition - Clinical Impression Clinical Impression: COPD exacerbation - Patient ED Disposition Is Patient to be Admitted: No Counseled Patient/Family Regarding: Studies Performed, Diagnosis, Need For Followup, Rx Given - Disposition Disposition: Routine/Home Disposition Time: 05:00 Condition: IMPROVED Additional Instructions: Continue medications prescribed upon discharge from inpatient hospital stay. Follow up with primary doctor in 2-3 days. Return to ED for worsening/concerning symptoms. Instructions: COPD (Chronic Obstructive Pulmonary Disease) (ED)
[2016-08-15 04:47] VITALS: RESP 16
[2016-08-15 05:52] VITALS: BP 180/89; PULSE 91; TEMP 98.2; O2SAT 97
--- NOTE | 2016-08-15 08:34 | CARD ---
APPROVED REPORT EKG Measurement Heart Ayax16TCUE LA [id number] <Conclusion> Sinus rhythm with premature atrial complexes Left ventricular hypertrophy with QRS widening and repolarization abnormality Abnormal ECG
--- NOTE | 2016-08-15 13:24 | RAD ---
HISTORY: sob COMPARISON: 08/10/2016 TECHNIQUE: Chest PA and lateral FINDINGS: LUNGS: No active pulmonary disease. PLEURA: No significant pleural effusion identified. No pneumothorax apparent. CARDIOVASCULAR: Normal. OSSEOUS STRUCTURES: No significant abnormalities. VISUALIZED UPPER ABDOMEN: Normal. OTHER FINDINGS: None. IMPRESSION: No active disease.
== END 2016-08-15 06:00 | disposition home or self-care (01) ==
LOC: H.ER 23:29
DX: J44.1 Chronic obstructive pulmonary disease with (acute) exacerbation (principal); E78.00 Pure hypercholesterolemia, unspecified; I10 Essential (primary) hypertension; I48.91 Unspecified atrial fibrillation; Z79.01 Long term (current) use of anticoagulants; Z79.82 Long term (current) use of aspirin; Z86.73 Personal history of transient ischemic attack (TIA), and cerebral infarction without residual deficits

== ENCOUNTER 2016-08-15 13:44 | Emergency (ER) | payer MEDICAID ==
[2016-08-15 13:45] VITALS: PULSE 68; BMI 22.0
[2016-08-15 13:55] VITALS: BP 180/74; PULSE 94; RESP 18; TEMP 97; O2SAT 99
[2016-08-15] MEDS ORDERED: Albuterol-Ipratrop 3 mg / 0.5 (3 ml) UD INH STA (14:39)
--- NOTE | 2016-08-15 14:39 | ED PDOC ---
HPI: CCC, URI, Sore Throat Time Seen by Provider: 08/15/16 14:36 Chief Complaint (Nursing): Cough, Cold, Congestion Chief Complaint (Provider): asthma History Per: Patient Additional Complaint(s): Patient presents to ED requesting breathing treatment and rx for ventolin inhaler. He was discharged from hospital yesterday and states he was given all of his meds except ventolin. He states he has spiriva and advair and he takes these meds as directed. He denies chest pain at this time. Patient was seen for same earlier today in ED as well but he was not given rx ventolin. Past Medical History Reviewed: Historical Data, Nursing Documentation, Vital Signs Vital Signs: Last Vital Signs Temp 97 F L 08/15/16 13:54 Pulse 94 H 08/15/16 13:54 Resp 18 08/15/16 13:54 BP 180/74 H 08/15/16 13:54 Pulse Ox 99 08/15/16 14:39 - Medical History PMH: Anxiety, Arthritis, Asthma, Atrial Fibrillation, COPD, CVA, Depression, HTN , Hypercholesterolemia, Hyperlipidemia, Sexually Transmitted Disease - Family History Family History: States: [place] (Mother), CAD (Mother) - Living Arrangements Living Arrangements: Other (non domiciled) - Social History Current smoker - smoking cessation education provided: Yes (4 cigarettes per day ) Alcohol: Social Drugs: Denies - Home Medications Home Medications: Ambulatory Orders Medication Instructions Recorded Omeprazole 40 mg PO DAILY #30 capsule. 06/01/16 amLODIPine [Norvasc] 10 mg PO DAILY #30 tab 06/01/16 Aspirin [Ecotrin] 81 mg PO DAILY 06/15/16 Apixaban [Eliquis] 5 mg PO BID #60 07/31/16 Digoxin [Lanoxin] 125 mcg PO DAILY #30 07/31/16 Ferrous Sulfate [Feosol] 325 mg PO BID #60 tab 07/31/16 Furosemide [Lasix] 20 mg PO DAILY #30 tab 07/31/16 Tiotropium [Spiriva] 18 mcg INH DAILY #1 dev 07/31/16 Valsartan [Diovan] 320 mg PO DAILY #30 07/31/16 Albuterol HFA [Ventolin HFA 90 2 puff IH Q6 #200 puff 08/01/16 mcg/actuation (8 g)] Naproxen 500 mg PO BID #20 tablet. 08/01/16 Docusate [Colace] 100 mg PO BID PRN 08/02/16 Benztropine [Cogentin] 1 mg PO HS #30 tab 08/09/16 Haloperidol [Haldol] 10 mg PO HS #30 tab 08/09/16 traZODone [Desyrel] 50 mg PO HS #30 tab 08/09/16 Methylprednisolone [Medrol Dose 4 mg PO DAILY #21 mg 08/14/16 Pack (21 tabs)] Albuterol HFA [Ventolin HFA 90 1 puff IH ASDIR #1 unit 08/15/16 mcg/actuation (8 g)] - Allergies Allergies/Adverse Reactions: Allergies Allergy/AdvReac Type Severity Reaction Status Date / Time No Known Allergies Allergy Verified 08/10/16 21:18 Review of Systems ROS Statement: Except As Marked, All Systems Reviewed And Found Negative Constitutional: Negative for: Fever Cardiovascular: Negative for: Chest Pain Respiratory: Positive for: Other (needs rx ventolin) Physical Exam - Reviewed Nursing Documentation Reviewed: Yes Vital Signs Reviewed: Yes - Physical Exam Appears: Positive for: Well, Non-toxic, No Acute Distress Skin: Negative for: Rash Eye Exam: Positive for: Normal appearance, EOMI, PERRL Cardiovascular/Chest: Positive for: Regular Rate, Rhythm Respiratory: Positive for: Normal Breath Sounds. Negative for: Accessory Muscle Use, Wheezing, Respiratory Distress Extremity: Negative for: Pedal Edema Neurologic/Psych: Positive for: Alert, Oriented - ECG O2 Sat by Pulse Oximetry: 99 Pulse Ox Interpretation: Normal Nebulizer Treatments/Peak Flow - Duonebs Number of Bronchodilator Doses given?: 1 - Pre/Post Peak Flow Pre Treatment Peak Flow: 250 Post treatment Peak Flow: 300 - Steroid Treatment Steroid: Not Clinically Indicated - Clinical Response Clinical Response: Improved Medical Decision Making Medical Decision Making: Impression: Asthma Patient is well appearing, no resp distress noted Plan: Duoneb x 1 Rx ventolin Patient was referred to clinic for follow up. Disposition - Clinical Impression Clinical Impression: Asthma - Patient ED Disposition Is Patient to be Admitted: No Counseled Patient/Family Regarding: Diagnosis, Need For Followup, Rx Given - Disposition Referrals: [facility] [Outside] Disposition: Routine/Home Disposition Time: 16:28 Condition: STABLE Additional Instructions: Take rx meds as directed. Follow up with primary care doctor or with clinic. Prescriptions: Albuterol HFA [Ventolin HFA 90 mcg/actuation (8 g)] 1 puff IH ASDIR #1 unit Instructions: Asthma (ED)
[2016-08-15] MEDS ORDERED: Albuterol-Ipratrop 3 mg / 0.5 (3 ml) UD ONE (16:01)
[2016-08-16] MEDS ORDERED: Albuterol-Ipratrop 3 mg / 0.5 (3 ml) UD ONE (00:27)
== END 2016-08-15 16:40 | disposition home or self-care (01) ==
LOC: H.ER 13:44
DX: J45.909 Unspecified asthma, uncomplicated (principal); E78.00 Pure hypercholesterolemia, unspecified; F41.9 Anxiety disorder, unspecified; I10 Essential (primary) hypertension; Z79.01 Long term (current) use of anticoagulants; Z79.82 Long term (current) use of aspirin; Z86.73 Personal history of transient ischemic attack (TIA), and cerebral infarction without residual deficits; J44.9 Chronic obstructive pulmonary disease, unspecified

== ENCOUNTER 2016-08-15 23:24 | Emergency (ER) | payer MEDICAID ==
[2016-08-15 23:24] VITALS: PULSE 68; BMI 22.0
[2016-08-15 23:39] VITALS: BP 111/92; PULSE 78; RESP 18; TEMP 98.7; O2SAT 99
[2016-08-16] MEDS ORDERED: Albuterol-Ipratrop 3 mg / 0.5 (3 ml) UD IH STA (00:24)
--- NOTE | 2016-08-16 00:27 | ED PDOC ---
HPI: SOB/CHF/COPD Time Seen by Provider: 08/16/16 00:09 Chief Complaint (Nursing): Lower Extremity Problem/Injury Chief Complaint (Provider): sob History Per: Patient History/Exam Limitations: no limitations Onset/Duration Of Symptoms: Days Current Symptoms Are (Timing): Still Present Additional History Per: Patient Additional Complaint(s): 60 y/o male ambulates to ED stating his asthma is "acting up". Patient also notes leg cramps from walking excessively. 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 Denies fever, cough, chest pain, palpitations, leg swelling, recent travel. Past Medical History Reviewed: Historical Data, Nursing Documentation, Vital Signs Vital Signs: Last Vital Signs Temp 98.7 F 08/15/16 23:35 Pulse 78 08/15/16 23:35 Resp 18 08/15/16 23:35 BP 111/92 H 08/15/16 23:35 Pulse Ox 99 08/16/16 00:26 - Medical History PMH: Anemia, Anxiety, Arthritis, Asthma, Atrial Fibrillation, COPD, CVA, Depression, HTN, Hypercholesterolemia, Hyperlipidemia, Sexually Transmitted Disease Denies: Diabetes, Hepatitis, HIV, Chronic Kidney Disease, Seizures - Surgical History Surgical History: Denies: Coronary Stent - Family History Family History: States: [place] (Mother), CAD (Mother) - Immunization History Hx Tetanus Toxoid Vaccination: No Hx Influenza Vaccination: No Hx Pneumococcal Vaccination: No - Home Medications Home Medications: Ambulatory Orders Medication Instructions Recorded Omeprazole 40 mg PO DAILY #30 capsule. 06/01/16 amLODIPine [Norvasc] 10 mg PO DAILY #30 tab 06/01/16 Aspirin [Ecotrin] 81 mg PO DAILY 06/15/16 Apixaban [Eliquis] 5 mg PO BID #60 07/31/16 Digoxin [Lanoxin] 125 mcg PO DAILY #30 07/31/16 Ferrous Sulfate [Feosol] 325 mg PO BID #60 tab 07/31/16 Furosemide [Lasix] 20 mg PO DAILY #30 tab 07/31/16 Tiotropium [Spiriva] 18 mcg INH DAILY #1 dev 07/31/16 Valsartan [Diovan] 320 mg PO DAILY #30 07/31/16 Albuterol HFA [Ventolin HFA 90 2 puff IH Q6 #200 puff 08/01/16 mcg/actuation (8 g)] Naproxen 500 mg PO BID #20 tablet. 08/01/16 Docusate [Colace] 100 mg PO BID PRN 08/02/16 Benztropine [Cogentin] 1 mg PO HS #30 tab 08/09/16 Haloperidol [Haldol] 10 mg PO HS #30 tab 08/09/16 traZODone [Desyrel] 50 mg PO HS #30 tab 08/09/16 Methylprednisolone [Medrol Dose 4 mg PO DAILY #21 mg 08/14/16 Pack (21 tabs)] Albuterol HFA [Ventolin HFA 90 1 puff IH ASDIR #1 unit 08/15/16 mcg/actuation (8 g)] Ibuprofen [Motrin Tab] 600 mg PO Q8 PRN #60 tab 08/16/16 Valsartan 320 mg PO DAILY #30 tablet 08/16/16 amLODIPine [Norvasc] 10 mg PO DAILY #30 tab 08/16/16 - Allergies Allergies/Adverse Reactions: Allergies Allergy/AdvReac Type Severity Reaction Status Date / Time No Known Allergies Allergy Verified 08/10/16 21:18 Review of Systems ROS Statement: Except As Marked, All Systems Reviewed And Found Negative Respiratory: Positive for: Wheezing Physical Exam - Reviewed Nursing Documentation Reviewed: Yes Vital Signs Reviewed: Yes - Physical Exam Appears: Positive for: Well, Non-toxic, No Acute Distress (sleeping) Head Exam: Positive for: ATRAUMATIC, NORMAL INSPECTION, NORMOCEPHALIC Skin: Positive for: Normal Color Eye Exam: Positive for: Normal appearance ENT: Positive for: Normal ENT Inspection Cardiovascular/Chest: Positive for: Regular Rate, Rhythm Respiratory: Positive for: Normal Breath Sounds Gastrointestinal/Abdominal: Positive for: Normal Exam Back: Positive for: Normal Inspection Extremity: Positive for: Normal ROM. Negative for: Calf Tenderness Neurologic/Psych: Positive for: Alert, Oriented - ECG O2 Sat by Pulse Oximetry: 99 - Progress ED Course And Treament: tressa x1 On re-eval, patient sleeping, reports feeling better upon being awakened. Patient discharged with instructions to continue medications as previously instructed. Return to ED for worsening/concerning symptoms. Disposition - Clinical Impression Clinical Impression: Asthma - Patient ED Disposition Is Patient to be Admitted: No - Disposition Disposition: Routine/Home Disposition Time: 01:00 Condition: IMPROVED Instructions: Asthma (ED)
== END 2016-08-16 01:40 | disposition home or self-care (01) ==
LOC: H.ER 23:24
DX: J45.909 Unspecified asthma, uncomplicated (principal); E78.00 Pure hypercholesterolemia, unspecified; F32.9 Major depressive disorder, single episode, unspecified; F41.9 Anxiety disorder, unspecified; I10 Essential (primary) hypertension; J44.9 Chronic obstructive pulmonary disease, unspecified; Z79.01 Long term (current) use of anticoagulants; Z79.82 Long term (current) use of aspirin; Z86.73 Personal history of transient ischemic attack (TIA), and cerebral infarction without residual deficits

== ENCOUNTER 2016-08-16 17:43 | Emergency (ER) | payer MEDICAID ==
[2016-08-16 17:43] VITALS: PULSE 68; BMI 22.0
[2016-08-16 17:58] VITALS: PULSE 96; TEMP 98; O2SAT 98
[2016-08-16] MEDS ORDERED: Albuterol-Ipratrop 3 mg / 0.5 (3 ml) UD INH STA ×2 (18:30)
[2016-08-16] MEDS ORDERED: Albuterol-Ipratrop 3 mg / 0.5 (3 ml) UD ONE (18:35)
--- NOTE | 2016-08-16 18:35 | ED PDOC ---
HPI: SOB/CHF/COPD Chief Complaint (Provider): Shortness of breath History Per: Patient History/Exam Limitations: no limitations Onset/Duration Of Symptoms: Days (Since 3-4 days ago.), Intermittent Episodes Current Symptoms Are (Timing): Still Present Exacerbating Factor(s): Laying Flat Current Respiratory Medications: See Home Med List Severity: Mild Associated Symptoms: Productive Cough (Reports yellowish sputum.), Ankle/Leg Swelling. denies: Fever, Chills, Sweating, Chest Pain, Heart Racing, Dizziness , Light-headedness Recently: Seen In ED Additional History Per: Patient <Tracey Milian - Last Filed: 08/28/16 13:44> <Margie Bunn - Last Filed: 08/30/16 14:30> Time Seen by Provider: 08/16/16 18:01 Chief Complaint (Nursing): Shortness Of Breath Additional Complaint(s): CC: shortness of breath. HPI: 60 yo M with PMH of HTN, COPD and Depression presents to the ED complaining of dyspnea since 3-4 days ago, he came yesterday with similar symptoms which were treated. Also refers productive cough associated with yellowish sputum and ankle edema. Denies fever, chills, headache, chest pain, abdominal pain, palpitations any injury or any trauma recently. PMH: HTN, COPD, Depression, anemia,asthma. 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 SH: smoking 1pack per day, alcohol occasional, refers cocaine use last time around 6 mos ago. Allergies: cats, dust. Meds: Norvasc, Spiriva, Eliquis, Ventolin, Lasix. (Tracey Milian) Supervising Attending Note <Tracey Milian - Last Filed: 08/28/16 13:44> - Supervising Attending Note The Documented history was done by the: Physician Air Brake Tester, Attending Physician The documented physical exam was done by the: Physician Air Brake Tester, Attending Physician - Attestation: I have personally seen and examined this patient.: Yes I have fully participated in the care of the patient.: Yes I have reviewed all pertinent clinical information, including history, physical exam and plan: Yes <Margie Bunn - Last Filed: 08/30/16 14:30> - Notes: Notes:: 2200 On reevaluation pt feels better. Labs demonstrate anemia, which is chronic c/w previous. Otherwise labs unremarkable for any emergent conditions. Stable for DC. (Margie Bunn) Past Medical History Reviewed: Nursing Documentation, Vital Signs - Medical History PMH: Anemia, Anxiety, Arthritis, Asthma, Atrial Fibrillation, COPD, CVA, Depression, HTN, Hypercholesterolemia, Hyperlipidemia, Sexually Transmitted Disease Denies: Diabetes, Hepatitis, HIV, Chronic Kidney Disease, Seizures - Surgical History Surgical History: Denies: Coronary Stent Other surgeries: cataract 4 years ago. 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 - Family History Family History: States: [place] (Mother), CAD (Mother) - Social History Current smoker - smoking cessation education provided: Yes SMOKER/PACKS PER DAY:: 1 Alcohol: Occasional Drugs: Cocaine (Last use 6 mos ago.) - Immunization History Hx Tetanus Toxoid Vaccination: No Hx Influenza Vaccination: No Hx Pneumococcal Vaccination: No <Tracey Milian - Last Filed: 08/28/16 13:44> <Margie Bunn - Last Filed: 08/30/16 14:30> Vital Signs: Last Vital Signs Temp 98.0 F 08/16/16 17:56 Pulse 96 H 08/16/16 17:56 Resp 20 08/16/16 19:05 BP 130/85 08/16/16 18:56 Pulse Ox 98 08/28/16 13:48 - Home Medications Home Medications: Ambulatory Orders Medication Instructions Recorded amLODIPine [Norvasc] 10 mg PO DAILY #30 tab 06/01/16 Furosemide [Lasix] 20 mg PO DAILY #30 tab 07/31/16 Tiotropium [Spiriva] 18 mcg INH DAILY #1 dev 07/31/16 Benztropine [Cogentin] 1 mg PO HS #30 tab 08/09/16 Haloperidol [Haldol] 10 mg PO HS #30 tab 08/09/16 traZODone [Desyrel] 50 mg PO HS #30 tab 08/09/16 Methylprednisolone [Medrol Dose 4 mg PO DAILY #21 mg 08/14/16 Pack (21 tabs)] Ibuprofen [Motrin Tab] 600 mg PO Q8 PRN #60 tab 08/16/16 Albuterol HFA [Ventolin HFA 90 200 puff IH Q4H PRN #2 puff 08/18/16 mcg/actuation (8 g)] Spacer, Inhalation [Aerochamber] 1 dev IH ONCE #1 dev 08/18/16 - Allergies Allergies/Adverse Reactions: Allergies Allergy/AdvReac Type Severity Reaction Status Date / Time No Known Allergies Allergy Verified 08/18/16 23:51 Review of Systems ROS Statement: Except As Marked, All Systems Reviewed And Found Negative Constitutional: Negative for: Fever, Chills, Weakness Eyes: Negative for: Pain, Vision Change ENT: Negative for: Ear Pain, Nose Pain, Mouth Swelling Cardiovascular: Positive for: Orthopnea, Edema (On both ankles.). Negative for : Chest Pain, Palpitations Respiratory: Positive for: Cough, Shortness of Breath, Wheezing Gastrointestinal: Negative for: Nausea, Vomiting, Abdominal Pain Genitourinary Male: Negative for: Dysuria Musculoskeletal: Negative for: Neck Pain, Back Pain, Leg Pain Skin: Negative for: Rash Neurological: Negative for: Weakness, Numbness, Incoordination, Altered Mental Status, Headache, Dizziness Psych: Negative for: Anxiety <Tracey Milian - Last Filed: 08/28/16 13:44> Physical Exam - Reviewed Nursing Documentation Reviewed: Yes Vital Signs Reviewed: Yes - Physical Exam Appears: Positive for: Well, No Acute Distress Head Exam: Positive for: ATRAUMATIC, NORMOCEPHALIC Skin: Positive for: Normal Color, Warm, Dry Eye Exam: Positive for: Normal appearance, EOMI, PERRL. Negative for: Nystagmus ENT: Positive for: Normal ENT Inspection Neck: Positive for: Normal, Supple Cardiovascular/Chest: Positive for: Regular Rate, Rhythm. Negative for: Murmur Respiratory: Positive for: Wheezing (Bilateral lung [place].). Negative for: Crackles, Rales Pulses-Carotid (L): 2+ Pulses-Carotid (R): 2+ Pulses-Dorsalis Pedis (L): 2+ Pulses-Dorsalis Pedis (R): 2+ Pulses-Post. Tibialis (L): 2+ Pulses-Post. Tibialis (R): 2+ Pulses-Radial (L): 2+ Pulses-Radial (R): 2+ Gastrointestinal/Abdominal: Positive for: Normal Exam, Bowel Sounds, Soft. Negative for: Tenderness Back: Positive for: Normal Inspection Extremity: Positive for: Normal ROM, Pedal Edema. Negative for: Tenderness, Calf Tenderness DTR - Knee (R): 2+ DTR - Knee (L): 2+ Neurologic/Psych: Positive for: Alert, hris administrator II-XII, Oriented <Tracey Milian - Last Filed: 08/28/16 13:44> - Laboratory Results Result Diagrams: 08/16/16 18:51 08/16/16 18:51 - ECG ECG Rhythm: Positive for: Sinus Rhythm O2 Sat by Pulse Oximetry: 98 <Tracey Milian - Last Filed: 08/28/16 13:44> - Laboratory Results Result Diagrams: 08/16/16 18:51 08/16/16 18:51 <Margie Bunn - Last Filed: 08/30/16 14:30> - ECG Interpretation Of ECG: Sinus rhythm, P waves presents, narrows QRS, regular rhythm, ST elevation V1-V5 derivations with S wave inversion, pattern consistent with LVH. (Tracey Milian ) - Progress ED Course And Treament: Impression: 60 yo M with history of HTN, COPD, Asthma presents with dyspnea. Plan: CBC. cMP EKG PT,PTT. ABG. B TYPE NATRIURETIC TROPONIN Alcohol level, serum. Drug screen, Urine. CXR Peak flow. albuterol, nebulizer. lasix, IV (Tracey Milian) Medical Decision Making <Tracey Milian - Last Filed: 08/28/16 13:44> <Margie Bunn - Last Filed: 08/30/16 14:30> Medical Decision Making: Impression: 60 yo M with history of HTN, COPD, Asthma presents with dyspnea. Plan: CBC. cMP EKG PT,PTT. ABG. B TYPE NATRIURETIC TROPONIN Alcohol level, serum. Drug screen, Urine. CXR Peak flow. albuterol, nebulizer. lasix, IV Reevaluate. (Tracey Milian) Disposition - Patient ED Disposition Is Patient to be Admitted: Transfer of Care Discussed With : Margie Bunn Doctor Will See Patient In The: ED - Disposition Disposition Time: 20:10 <Trcaey Milian - Last Filed: 08/28/16 13:44> <Margie Bunn - Last Filed: 08/30/16 14:30> - Clinical Impression Clinical Impression: COPD exacerbation - Disposition Referrals: [facility] [Outside] - 08/17/16 Condition: IMPROVED Prescriptions: Ibuprofen [Motrin Tab] 600 mg PO Q8 PRN #60 tab PRN Reason: Pain, Moderate (4-7) Instructions: COPD (Chronic Obstructive Pulmonary Disease) (ED)
[2016-08-16 18:56] LABS: BASO # 0.2 K/uL (0.0-0.2); BASO % 1.7 % (0.0-2.0); EOS # 0.3 K/uL (0.0-0.7); EOS % 2.2 % (0.0-4.0); HEMOGLOBIN 8.2 g/dL (12.0-18.0); LYMPH # 1.1 K/uL (1.0-4.3); LYMPH % 9.8 % (20.0-40.0); MEAN CELL VOLUME 71.8 fl (80.0-94.0); MEAN CORPUSCULAR HGB CONC 30.6 g/dL (33.0-37.0); MEAN PLATELET VOLUME 8.8 fl (7.2-11.7); MONO # 1.3 K/uL (0.0-0.8); MONO % 11.2 % (0.0-10.0); NEUT # 8.6 K/uL (1.8-7.0); NEUT % 75.1 % (50.0-75.0); NRBC % 0.2 % (0.0-0.0); PLATELET COUNT 231 K/uL (130-400); RBC 3.74 Mil/uL (4.40-5.90); RED CELL DISTRIBUTION WIDTH 27.7 % (11.5-14.5); WHITE BLOOD COUNT 11.5 K/uL (4.8-10.8)
[2016-08-16 19:00] VITALS: BP 130/85
[2016-08-16 19:00] LABS: ABG ALLEN TEST YES; ARTERIAL BLOOD GAS HCO3 27.8 mmol/L (21-28); ARTERIAL BLOOD GAS PCO2 42 mm/Hg (35-45); ARTERIAL BLOOD GAS PH 7.44 (7.35-7.45); ARTERIAL BLOOD GAS PO2 62 mm/Hg (80-100); ARTERIAL BLOOD GAS TCO2 29.8 mmol/L (22-28)
[2016-08-16 19:06] VITALS: RESP 20
[2016-08-16 19:10] LABS: ALB/GLOB RATIO 1.2 (1.0-2.1); ALBUMIN 3.2 g/dL (3.5-5.0); ALT/SGPT 49 U/L (21-72); AST/SGOT 30 U/L (17-59); BLOOD UREA NITROGEN 33 mg/dl (9-20); CALCIUM 8.7 mg/dL (8.4-10.2); GFR AFRICAN-AMERICAN > 60; GFR NON-AFRICAN AMERICAN > 60
[2016-08-16 19:21] LABS: B-TYPE NATRIURETIC PEPTIDE 330 pg/ml (0-900)
[2016-08-16 19:28] LABS: PROTHROMBIN TIME 10.9 Seconds (9.8-13.1)
[2016-08-16 22:01] LABS: ANISOCYTOSIS MODERATE; BANDS 2 % (0-2); EOSINOPHIL 3 % (0-7); HYPOCHROMIC SLIGHT; LYMPHOCYTE 16 % (20-50); MICROCYTOSIS MODERATE; MONOCYTE 12 % (0-10); NEUTROPHIL 67 % (42-75); PLATELET ESTIMATE NORMAL (NORMAL); TOTAL CELLS COUNTED 100
--- NOTE | 2016-08-17 08:11 | CARD ---
APPROVED REPORT EKG Measurement Heart [id number] <Conclusion> Normal sinus rhythm with sinus arrhythmia Left ventricular hypertrophy with QRS widening and repolarization abnormality Abnormal ECG
--- NOTE | 2016-08-17 10:08 | RAD ---
HISTORY: sob edema COMPARISON: 08/15/2016 TECHNIQUE: Chest PA and lateral FINDINGS: LUNGS: The lungs are hyperinflated and there is peribronchial thickening with chronic changes in both lungs. There is scarring in the right lower lobe and left upper lobe. No focal consolidation. PLEURA: No significant pleural effusion identified. No pneumothorax apparent. CARDIOVASCULAR: Normal. OSSEOUS STRUCTURES: No significant abnormalities. VISUALIZED UPPER ABDOMEN: Normal. OTHER FINDINGS: None. IMPRESSION: No active pulmonary disease. COPD.
== END 2016-08-16 20:30 | disposition home or self-care (01) ==
LOC: H.ER 17:43
DX: J44.1 Chronic obstructive pulmonary disease with (acute) exacerbation (principal); J45.901 Unspecified asthma with (acute) exacerbation; I10 Essential (primary) hypertension; Z86.59 Personal history of other mental and behavioral disorders; F17.210 Nicotine dependence, cigarettes, uncomplicated; D64.9 Anemia, unspecified

== ENCOUNTER 2016-08-17 05:05 | Emergency (ER) | payer MEDICAID ==
[2016-08-17 05:06] VITALS: PULSE 68; BMI 22.0
[2016-08-17 05:13] VITALS: BP 138/71; PULSE 74; RESP 18; TEMP 98; O2SAT 100
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
== END 2016-08-17 05:16 | disposition home or self-care (01) ==
LOC: H.ER 05:05
DX: M79.606 Pain in leg, unspecified (principal)

== ENCOUNTER 2016-08-19 01:10 | Emergency (ER) | payer MEDICAID ==
[2016-08-19 01:11] VITALS: PULSE 68
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
[2016-08-19] MEDS ORDERED: Albuterol-Ipratrop 3 mg / 0.5 (3 ml) UD ONE (05:43)
[2016-08-19 12:25] VITALS: BP 148/99; PULSE 78; RESP 18; TEMP 98.5; O2SAT 97; BMI 21.1
== END 2016-08-19 03:34 | disposition home or self-care (01) ==
LOC: H.ER 01:10
DX: J44.9 Chronic obstructive pulmonary disease, unspecified (principal); E78.00 Pure hypercholesterolemia, unspecified; F32.9 Major depressive disorder, single episode, unspecified; F41.9 Anxiety disorder, unspecified; I10 Essential (primary) hypertension; Z86.73 Personal history of transient ischemic attack (TIA), and cerebral infarction without residual deficits; Z87.891 Personal history of nicotine dependence; Z76.5 Malingerer [conscious simulation]

== ENCOUNTER 2016-08-19 05:22 | Emergency (ER) | payer MEDICAID ==
[2016-08-19 05:22] VITALS: PULSE 68; BMI 21.2
[2016-08-19] MEDS ORDERED: Albuterol-Ipratrop 3 mg / 0.5 (3 ml) UD INH STA (05:34)
--- NOTE | 2016-08-19 05:49 | ED PDOC ---
Lower Extremity Pain/Injury Time Seen by Provider: 08/19/16 05:29 Chief Complaint (Nursing): Lower Extremity Problem/Injury Chief Complaint (Provider): Crisis evaluation History Per: Other (Police) History/Exam Limitations: no limitations Onset/Duration Of Symptoms: Hrs Additional Complaint(s): Immanuel Azul is a 60 year old male with a past medical history of hypertension , arthritis, anemia, asthma, and atril fibrillation who presents to the ED accompanied by the police for crisis evaluation. Patient reported to police that someone tried to sell him a gun and police brought him back because they believed him to have possible psychiatric disturbance. Patient is denying any acute medical or psychiatric complaint. Patient requests a nebulizer treatment for his asthma. Past Medical History Reviewed: Historical Data, Nursing Documentation, Vital Signs Vital Signs: Last Vital Signs Temp 97.9 F 08/19/16 05:27 Pulse 99 H 08/19/16 05:27 Resp 18 08/19/16 05:27 BP 137/79 08/19/16 05:27 Pulse Ox 95 08/19/16 05:27 - Medical History PMH: Anemia, Anxiety, Arthritis, Asthma, Atrial Fibrillation, COPD, CVA, Depression, HTN, Hypercholesterolemia, Hyperlipidemia, Sexually Transmitted Disease Denies: Diabetes, Hepatitis, HIV, Chronic Kidney Disease, Seizures - Surgical History Surgical History: Denies: Coronary Stent - Family History Family History: States: [place] (Mother), CAD (Mother) - Immunization History Hx Tetanus Toxoid Vaccination: No Hx Influenza Vaccination: Yes Hx Pneumococcal Vaccination: No - Home Medications Home Medications: Ambulatory Orders Medication Instructions Recorded amLODIPine [Norvasc] 10 mg PO DAILY #30 tab 06/01/16 Furosemide [Lasix] 20 mg PO DAILY #30 tab 07/31/16 Tiotropium [Spiriva] 18 mcg INH DAILY #1 dev 07/31/16 Benztropine [Cogentin] 1 mg PO HS #30 tab 08/09/16 Haloperidol [Haldol] 10 mg PO HS #30 tab 08/09/16 traZODone [Desyrel] 50 mg PO HS #30 tab 08/09/16 Methylprednisolone [Medrol Dose 4 mg PO DAILY #21 mg 08/14/16 Pack (21 tabs)] Ibuprofen [Motrin Tab] 600 mg PO Q8 PRN #60 tab 08/16/16 Albuterol HFA [Ventolin HFA 90 200 puff IH Q4H PRN #2 puff 08/18/16 mcg/actuation (8 g)] Spacer, Inhalation [Aerochamber] 1 dev IH ONCE #1 dev 08/18/16 - Allergies Allergies/Adverse Reactions: Allergies Allergy/AdvReac Type Severity Reaction Status Date / Time No Known Allergies Allergy Verified 08/18/16 23:51 Review of Systems ROS Statement: Except As Marked, All Systems Reviewed And Found Negative Physical Exam - Reviewed Nursing Documentation Reviewed: Yes Vital Signs Reviewed: Yes - Physical Exam Appears: Positive for: Well, Non-toxic, No Acute Distress Head Exam: Positive for: ATRAUMATIC, NORMAL INSPECTION, NORMOCEPHALIC Skin: Positive for: Normal Color, Warm, Dry Eye Exam: Positive for: Normal appearance, EOMI, PERRL ENT: Positive for: Normal ENT Inspection Neck: Positive for: Normal, Painless ROM, Supple Cardiovascular/Chest: Positive for: Regular Rate, Rhythm. Negative for: Murmur , Tachycardia Respiratory: Positive for: Normal Breath Sounds. Negative for: Wheezing, Respiratory Distress Gastrointestinal/Abdominal: Positive for: Normal Exam Back: Positive for: Normal Inspection Rectal: Positive for: Deferred Extremity: Positive for: Normal ROM Lymphatic: Positive for: Deferred Neurologic/Psych: Positive for: Alert, Oriented - ECG O2 Sat by Pulse Oximetry: 95 (RA) Pulse Ox Interpretation: Normal Medical Decision Making Medical Decision Makin: Initial Impression: 60 year old male brought in for crisis evaluation Initial Plan: * Crisis Evaluation * Ultr[employer] Scribe Attestation: Documented by Jennifer Miguel acting as a scribe for Faustino Fountain MD. Provider Scribe Attestation: All medical record entries made by the Scribe were at my direction and personally dictated by me. I have reviewed the chart and agree that the record accurately reflects my personal performance of the history, physical exam, medical decision making, and the department course for this patient. I have also personally directed, reviewed, and agree with the discharge instructions and disposition. Disposition - Clinical Impression Clinical Impression: Chronic pain, Malingering, Schizoaffective disorder - Disposition Disposition: Routine/Home Disposition Time: 05:30 Condition: STABLE
[2016-08-19 12:35] VITALS: BP 137/79; PULSE 99; RESP 18; TEMP 97.9; O2SAT 95
== END 2016-08-19 06:07 | disposition home or self-care (01) ==
LOC: H.ER 05:22
DX: F25.9 Schizoaffective disorder, unspecified (principal); Z76.5 Malingerer [conscious simulation]; I10 Essential (primary) hypertension; J44.9 Chronic obstructive pulmonary disease, unspecified; Z86.73 Personal history of transient ischemic attack (TIA), and cerebral infarction without residual deficits; Z00.8 Encounter for other general examination